=== PATIENT | female | born 1940 | race Caucasian/White ===

== ENCOUNTER 2018-02-07 08:38 | Inpatient (IN) | payer MEDICARE, BC ==
[2018-02-07 09:17] LABS: Hemoglobin 13.9 g/dL (12.0-16.0); Mean Corpuscular HGB CONC 33.9 g/dL (32.0-36.0); Mean Corpuscular Hemoglobin 31.3 pg (27.0-31.0); Mean Corpuscular Volume 92.3 fl (81.0-99.0); Mean Platelet Volume 8.6 fL (7.4-10.4); Platelet Count 187 thou/uL (130-400); RBC Distribution Width 11.7 % (11.5-14.5); Red Blood Cell (RBC) Count 4.44 mill/uL (4.20-5.40); White Blood Cell (WBC) Count 6.3 thou/uL (4.8-10.8)
--- NOTE | 2018-02-07 09:22 | CT ---
HEAD CT WITHOUT CONTRAST: History: Syncope. Comparison: None. Technique: Noncontrast head CT is performed from skull base to skull vertex. FINDINGS: Large left supraorbital/scalp hematoma. No parenchymal hemorrhage. No extraaxial hematoma. No midline shift. Basilar cisterns are patent. Bra in volume is age appropriate. Cortical cloud white matter differentiation is preserved. Ventricles and sulci are patent and symmetric. Calvarium is intact. Adequate aeration of the sinuses and mastoid air cells. Cavernous carotid athero sclerosis is noted. IMPRESSION: No intracranial post-traumatic sequella. No acute intracranial process. POS: [facility]
[2018-02-07 09:36] LABS: CKMB 0.8 ng/mL (0-6.6); Troponin I Less than 0.010 ng/mL (< 0.028)
[2018-02-07 09:41] LABS: Band 2 % (5-11); Eosinophils 6 % (0-10); Lymphocytes 25 % (21-51); MDiff Complete? YES; Monocytes 2 % (0-10); Neutrophil 65 % (42-75); RBC Morphology Normal
[2018-02-07 09:42] LABS: ALT (SGPT) 17 U/L (8-55); AST (SGOT) 18 U/L (5-34); Albumin 3.7 g/dL (3.4-4.8); Alkaline Phosphatase 90 U/L (40-150); Anion Gap 16 mmol/L (10-20); BUN (Urea Nitrogen) 18 mg/dL (9.8-20.1); Bilirubin, Total 0.8 mg/dL (0.2-1.2); Calc. Creatinine Clearance 0 mL/min (70-130); Calcium 9.2 mg/dL (7.8-10.44); Carbon Dioxide 19 mmol/L (23-31); Chloride 108 mmol/L (98-107); Estimated GFR-MDRD 84; Globulin 3.3 g/dL (2.4-3.5); Glucose 141 mg/dL (83-110); Potassium 3.7 mmol/L (3.5-5.1); Sodium 139 mmol/L (136-145)
--- NOTE | 2018-02-07 09:45 | RAD ---
ONE VIEW CHEST: History: Syncope. Comparison: None. FINDINGS: Normal cardiac silhouette. The lungs are pleural spaces are clear. No pneumothorax or osseous abnorma lities. Calcified granuloma in the right lower lobe is suspected. IMPRESSION: No acute cardiopulmonary process. POS: [facility]
[2018-02-07 10:45] LABS: Bilirubin Negative (Negative); Blood, Urine Negative (Negative); Clarity CLEAR (Clear); Glucose, Urine (Dipstick) Negative (Negative); Leukocyte Small (Negative); Nitrite Negative (Negative); Protein, Urine (Dipstick) Negative (Neg-Trace); Specific Gravity, Urine 1.015 (1.002-1.036); Urobilinogen 0.2 mg/dL (0.2-1.0)
[2018-02-07 10:48] LABS: Bacteria/HPF None Seen HPF (None Seen); Hyaline Casts/LPF 0-3 HYALINE CAST LPF (0-3 Hyaline); Pathc Cast-AUWi Flag 0.29 (0-2.49); RBC/HPF 0-3 HPF (0-3); Squamous Epithelial 0-3 HPF (0-3)
--- NOTE | 2018-02-07 11:37 | PDOC.FPRHP ---
- History of Present Illness Chief Complaint: syncope History of Present Illness: 78 year old female with PMH hypothyroidism, SOLOMON, and OA that presents after syncopal episode at home. This is reportedly the second episode of syncope within the last 2 months. Patient states that she has no prodromal symptoms. She does not feel dizzy or light-headed prior to the events. Patient states she was up walking around during both episodes. She does have a history of OA in bilateral knees but does not feel as though her knees gave out causing her to fall. She states she "blacked out" and then hit her head. Both times she has hit her head and sustained minor lacerations. Patient denies chest pain, sudden vision changes, shortness of breath, edema, headaches, or palpitations. She has felt generally weak but not ill. She has been otherwise healthy and states she takes her thyroid medication daily and wears her CPAP machine at night. She endorses eating and drinking adequately. She has not spent an abnormal amount of time out in the hot sun. She did not seek help or further evaluation from PCP after last syncopal episode, so she has not been worked up for syncope up to this point. Patient states she was only out for a few seconds and was alert once she woke up. She was not confused. There was nobody present to witness the syncopal episode, but she did call family to notify them that she had fallen. ED Course: CT of brain was negative. - Allergies/Adverse Reactions Allergies Allergy/AdvReac Type Severity Reaction Status Date / Time spinach Allergy Hives Verified 02/07/18 13:03 - Home Medications Medication Instructions Recorded Confirmed Type Hydrochlorothiazide 1 tab PO DAILY 02/07/18 02/07/18 History [Hydrochlorothiazide] Levothyroxine [Synthroid] 150 mcg PO QAM 02/07/18 02/07/18 History Meloxicam [Meloxicam] 15 mg PO DAILY 02/07/18 02/07/18 History Montelukast Sodium 10 mg PO DAILY 02/07/18 02/07/18 History - History PMHx: Hypothyroidism, SOLOMON, OA, Chronic venous stasis PSHx: Cataract surgery of left and right eye, Left ankle surgery, Left wrist surgery, Hysterectomy FHx: Mother has CAD. No history of DM. Social: Patient denies tobacco, alcohol or drug use - Review of Systems General: denies: fever/chills, weight/appetite/sleep changes, fatigue Eyes: denies: eye pain, vision changes ENT: denies: nasal congestion, rhinorrhea Respiratory: denies: cough, congestion, shortness of breath Cardiovascular: denies: chest pain, palpitation, edema Gastrointestinal: denies: nausea, vomiting, diarrhea, constipation, abdominal pain Genitourinary: reports: polyuria (at night). denies: incontinence, dysuria Skin: denies: rashes, lesions, jaundice Musculoskeletal: reports: pain, tenderness (bilateral knees) Neurological: reports: syncope, weakness. denies: numbness, seizure Psychological: denies: anxiety, depression - Vital signs BP: 164/84 HR: 70 RR: 20 Tmax: 98.1 F Pox: 95% on RA Wt: 97.70 kg - Physical Exam Constitutional: NAD, awake, alert and oriented, well developed HEENT: PERRLA, EOMI, conjunctiva clear, no scleral icterus, grossly normal hearing, normal nasal mucosa, MMM, oropharynx clear -HEENT: Left eyebrow laceration, poorly approximated with dermabond. 2 mm pupils. Neck: supple, FROM Heart: RRR, normal S1/S2, no murmurs/rubs/gallops, pulses present, no edema Lungs: CTAB, no respiratory distress, good air movement, no wheezing, no retractions Abdomen: soft, non-tender, bowel sounds present, no masses/distention, no hernias -Musculoskeletal: Left wrist echymosis on anterior and radial wrist. Non-tender to palpation. Left orbital ecchymosis and edema. Neurological: no focal deficit, CN II-XII intact, normal sensation Skin: no rash/lesions, good turgor, capillary refill <2 seconds, no jaundice Heme/Lymphatic: no unusual bruising or bleeding, no purpura, no petechia, no LAD Psychiatric: normal mood and affect, good judgment and insight, intact recent and remote memory FMR H&P: Results - Labs Result Diagrams: 02/07/18 09:08 02/07/18 09:08 Lab results: WBC 6.3 thou/uL (4.8-10.8) 02/07/18 09:08 Hgb 13.9 g/dL (12.0-16.0) 02/07/18 09:08 Hct 40.9 % (36.0-47.0) 02/07/18 09:08 MCV 92.3 fl (81.0-99.0) 02/07/18 09:08 Plt Count 187 thou/uL (130-400) 02/07/18 09:08 Band Neuts % (Manual) 2 % (5-11) L 02/07/18 09:08 Sodium 139 mmol/L (136-145) 02/07/18 09:08 Potassium 3.7 mmol/L (3.5-5.1) 02/07/18 09:08 Chloride 108 mmol/L (98-107) H 02/07/18 09:08 Carbon Dioxide 19 mmol/L (23-31) L 02/07/18 09:08 BUN 18 mg/dL (9.8-20.1) 02/07/18 09:08 Creatinine 0.68 mg/dL (0.6-1.1) 02/07/18 09:08 Glucose 141 mg/dL (83-110) H 02/07/18 09:08 Calcium 9.2 mg/dL (7.8-10.44) 02/07/18 09:08 Total Bilirubin 0.8 mg/dL (0.2-1.2) 02/07/18 09:08 AST 18 U/L (5-34) 02/07/18 09:08 ALT 17 U/L (8-55) 02/07/18 09:08 Alkaline Phosphatase 90 U/L (40-150) 02/07/18 09:08 CK-MB (CK-2) 0.8 ng/mL (0-6.6) 02/07/18 09:08 Serum Total Protein 7.0 g/dL (6.0-8.3) 02/07/18 09:08 Albumin 3.7 g/dL (3.4-4.8) 02/07/18 09:08 Urine Ketones Negative mg/dL (Negative) 02/07/18 10:33 Urine Blood Negative (Negative) 02/07/18 10:33 Urine Nitrite Negative (Negative) 02/07/18 10:33 Ur Leukocyte Esterase Small (Negative) H 02/07/18 10:33 Urine RBC 0-3 HPF (0-3) 02/07/18 10:33 Urine WBC 4-6 HPF (0-3) H 02/07/18 10:33 Ur Squamous Epith Cells 0-3 HPF (0-3) 02/07/18 10:33 Urine Bacteria None Seen HPF (None Seen) 02/07/18 10:33 - EKG Interpretation EKG: EKG: NSR - Radiology Interpretation CT scan - head Status: image reviewed by me, report reviewed by me Additional comment: No acute intracranial abnormality FMR H&P: A/P - Problem List (1) Facial laceration Current Visit: Yes Status: Acute Code(s): S01.81XA - LACERATION W/O FOREIGN BODY OF OTH PART OF HEAD, INIT ENCNTR (2) Syncope and collapse Current Visit: Yes Status: Acute Code(s): R55 - SYNCOPE AND COLLAPSE (3) Right wrist injury Current Visit: Yes Status: Acute Code(s): S69.91XA - UNSP INJURY OF RIGHT WRIST, HAND AND FINGER(S), INIT ENCNTR (4) Hypothyroidism Current Visit: Yes Status: Chronic Code(s): E03.9 - HYPOTHYROIDISM, UNSPECIFIED (5) SOLOMON (obstructive sleep apnea) Current Visit: Yes Status: Chronic Code(s): G47.33 - OBSTRUCTIVE SLEEP APNEA (ADULT) (PEDIATRIC) (6) Osteoarthritis Current Visit: Yes Status: Chronic Code(s): M19.90 - UNSPECIFIED OSTEOARTHRITIS, UNSPECIFIED SITE - Plan Syncope and collapse - 2 episodes in last month, unprovoked - Differentials include orthostatic hypotension, Sick sinus syndrome, TIA, Vasovagal syncope - Symptoms less c/w stroke: Strength 5/5 bilaterally, CN II-XII intact, no focal deficits - Will obtain orthostatic vital signs - Monitor on telemetry for rhythm abnormalities - Mild fluid resuscitation with LR as patient has mild acidosis and hyperchloremia - Consider echo as outpatient - TSH < 0.0025 which may have contributed; will decrease dose of levothyroxine and measure free T3, T4 - Consider consulting cardiology, particularly if rhythm irregularities on telemetry - Patient may need holter monitor as outpatient due to recurrent syncope - Obtain records from recent stress test which was negative per patient report - No carotid bruits on physical exam - Check electrolytes to include Mg, P - NPO at midnight in anticipation of possible stress test in AM pending prior records - EKG NSR - Brain CT negative Left eyebrow laceration - s/p approximation with dermabond; hemostatic - Consider CT facial bones if concern for orbital fracture arises Right wrist injury - s/p fall - Xray right wrist - Pain control Hypothyroidism - TSH 0.0025, will follow up with free T3, T4 - Consider decreasing dose of levothyroxine SOLOMON - Continue CPAP at night OA - Pain control with home meloxicam dose CODE STATUS: FULL DVT PPX: SCD s GI PPX: pantoprazole Dispo: Obs in telemetry. Anticipate LOS <48 hours. FMR H&P: Upper Level - Pertinent history 78yo HF with pmhx hypothyroidism, OA and SOLOMON presents to [facility] ED after syncopal episode with unwitnessed fall from standing position while home walking from one room to another. Denies any noticeable LOC, dizziness/lightheadedness, palpitations, mechanical weakness, or other prodromal symptoms. This is the 2nd event within the last 2 months that occurred with exertional syncope and no prodromal symptoms. After the event, pt endorses only pain at the site of her laceration to the right eyebrow/forehead which has been reapproximated with dermabond in the ED. See actuarial intern note for further details regarding pts past medical, surgical hxs. Pt endorses recent stress by outpt emergency veterinary technician named "Dr. Gomez", unsure of results. - Pertinent findings PE-- Gen- A&Ox3, NAD, well appearing HEENT- pupils 2mm, but equally reactive, EOMI Neck- no thyromegaly, no TIM. no carotid bruits. CV- rrr, no mrg. no LE edema Lungs- CTAB Abd- soft, nontender, nondistended Ext- right wrist swelling + bruising to radial side of wrist Psyc- normal affect, short term memory intact Sig labs- Laboratory Tests 02/07/18 02/07/18 02/07/18 09:08 09:08 09:08 WBC 6.3 Hgb 13.9 Hct 40.9 Plt Count 187 Sodium 139 Potassium 3.7 Chloride 108 H Carbon Dioxide 19 L Creatinine 0.68 Estimated GFR (MDRD) 84 Glucose 141 H CK-MB (CK-2) 0.8 Troponin I Less than 0.010 TSH 3rd Generation 02/07/18 09:08 WBC Hgb Hct Plt Count Sodium Potassium Chloride Carbon Dioxide Creatinine Estimated GFR (MDRD) Glucose CK-MB (CK-2) Troponin I TSH 3rd Generation Less than 0.0025 L CXR- NAD CT head- NAD - Plan Date/Time: 02/07/18 1134 78yo HF with pmhx hypothyroidism, SOLOMON, OA presents after "passing out" at home-- 1) Syncope- ddx includes vasovagal, orthostatic, cardiac (sick sinus vs. arrhythmia vs. ischemic), medication effect, neurogenic. CT head negative for acute bleed, EKG upon admission is NSR in low 60s, and neg lab work up thus far. Will observe on telemetry with continuous cardiac monitoring, check orthostatic vitals, consider stress testing (pt states this has possibly been done recently). 2) Supratherapeutic hypothyroidism- TSH low, check FT3 & FT4 for further mgmt. hold levothyroxine. 3) Right wrist contusion- check xray to r/o Colles' fx from FOOSH injury 4) facial lac- s/p reapproximation with Dermabond 5) SOLOMON- continue home CPAP settings I, [Mel Lopez DO ([email or web address])], have evaluated this patient and agree with findings/plan as outlined by actuarial intern resident. Pertinent changes/additions are listed here.
[2018-02-07] MEDS ORDERED: Acetaminophen 325 MG TAB PO PRN (12:26)
[2018-02-07] MEDS ORDERED: Ondansetron PF 4 MG/2 ML Vial IVP PRN (12:26)
[2018-02-07] MEDS ORDERED: Ondansetron ODT 4 MG TAB PO PRN (12:26)
[2018-02-07 12:44] VITALS: BMI 35.0
[2018-02-07 12:52] LABS: Troponin I Less than 0.010 ng/mL (< 0.028)
[2018-02-07 12:56] LABS: Phosphorus 3.1 mg/dL (2.3-4.7)
[2018-02-07 13:20] LABS: Free T4 (Free Thyroxine) 1.76 ng/dL (0.70-1.48)
[2018-02-07] MEDS: Lactated Ringer's 1,000 ML IV SCH ×2 (14:14→22:39)
--- NOTE | 2018-02-07 14:21 | RAD ---
THREE VIEWS RIGHT WRIST: HISTORY: Fall. Injury. COMPARISON: None. FINDINGS: There is diffuse bone demineralization. There is possible lucency and irregularity involving the dis smiley radius. The possibility of a distal radius fracture cannot be completely excluded. There is no evidence of a carpal bone fracture. There are degenerative changes in the 1st carpometacarpal joint space. IMPRESSION: 1. Subtle lucencies in the distal radius. Correlate clinically for point tenderness and fracture. 2. Degenerative changes of the 1st carpometacarpal joint space. POS: [facility]
[2018-02-07] MEDS ORDERED: traMADol HCl 50 MG TAB PO PRN (15:44)
[2018-02-07 16:30] LABS: Troponin I Less than 0.010 ng/mL (< 0.028)
--- NOTE | 2018-02-07 17:08 | HP ---
I have reviewed the history and physical of Dr. Katharina Bailey. I have discussed the case with be r and agree with her assessment and plan. Briefly, Ms. Medeiros is a pleasant 78-year-old female with no prior history of coronary arter y disease who presents with a syncopal episode that occurred at home. She states that this morning s he awoke and was walking in her home when she suddenly lost consciousness. She states for a matter o f "seconds." She did not have antecedent chest pain, palpitations or racing feeling in her heart. S he awoke with no sequelae. She does not remember any incontinence of stool or urine. [facility] where she was subsequently admitted for further ev aluation and workup. Her admission EKG from the ER appears normal. PHYSICAL EXAMINATION: GENERAL: She is currently awake, alert, pleasant, in no distress. She does have abrasion above her left eyebrow with periorbital edema from a fall. VITAL SIGNS: Blood pressure is 160/80, pulse rate is 70 and regular. She is afebrile. Again, she i s awake, alert, in no distress. HEENT: Aforementioned. NECK: Supple. No bruits. CARDIAC: Heart rhythm regular, no gallop or murmur noted. LUNGS: Clear, without rales, rhonchi, or wheezes. ABDOMEN: Flat, soft. No guarding, rebound or rigidity. EXTREMITIES: No edema. NEUROLOGIC: No focal deficits. LABORATORY DATA: CBC: White count 6300, hemoglobin 13.9, hematocrit 40.9 with an MCV of 92. Chemis tries: Her sodium is 139, potassium 3.9, chloride 108, bicarbonate 19, BUN 18, creatinine 0.68, gluc ose is 141, and magnesium is 2. Her TSH is suppressed at less than 0.0025 and her free T4 is elevate d at 1.76. Her EKG shows no ischemic changes or evidence of arrhythmia. ASSESSMENT: Syncope/presyncope. PLAN: The patient will be admitted. We will likely need to reduce her thyroid medication as she is slightly hyperthryroid. This could have precipitated an arrhythmia such as atrial fibrillation or SV T. She will likely need an outpatient study to include either Holter monitoring or event recorder. Echocardiography will likely be performed. In the event, currently she is clinically stable.
[2018-02-08] MEDS: Levothyroxine Sodium 100 MCG TAB PO SCH (03:51)
[2018-02-08 05:03] LABS: #Eosinphils 0.2 thou/uL (0.0-0.7); #Lymphocytes 1.8 thou/uL (1.20-3.40); #Monocytes 0.5 thou/uL (0.11-0.59); #Neutrophils 3.3 thou/uL (1.40-6.50); %Basophils 0.8 % (0.0-1.0); %Eosinophils 2.8 % (0.0-10.0); %Lymphocytes 30.6 % (21.0-51.0); %Monocytes 9.2 % (0.0-10.0); %Neutrophils 56.7 % (42.0-75.0); Hemoglobin 12.2 g/dL (12.0-16.0); Mean Corpuscular HGB CONC 33.6 g/dL (32.0-36.0); Mean Corpuscular Hemoglobin 30.8 pg (27.0-31.0); Mean Corpuscular Volume 91.5 fl (81.0-99.0); Mean Platelet Volume 8.1 fL (7.4-10.4); Platelet Count 240 thou/uL (130-400); RBC Distribution Width 11.7 % (11.5-14.5); Red Blood Cell (RBC) Count 3.97 mill/uL (4.20-5.40); White Blood Cell (WBC) Count 5.9 thou/uL (4.8-10.8)
[2018-02-08 05:21] LABS: Anion Gap 10 mmol/L (10-20); BUN (Urea Nitrogen) 13 mg/dL (9.8-20.1); Calc. Creatinine Clearance 125 mL/min (70-130); Carbon Dioxide 28 mmol/L (23-31); Chloride 105 mmol/L (98-107); Estimated GFR-MDRD Greater than 90; Glucose 99 mg/dL (83-110); Potassium 3.6 mmol/L (3.5-5.1); Sodium 139 mmol/L (136-145)
[2018-02-08] MEDS: Lactated Ringer's 1,000 ML IV SCH ×3 (06:48→22:34)
--- NOTE | 2018-02-08 07:00 | PDOC.FM ---
Addendum entered and electronically signed by Katharina Bailey DO 02/08/18 10 :32: Ordered carotid doppler and echo to further evaluate etiology of syncope. Concerned there may be rhythm abnormality or component of sick sinus syndrome contributing to syncopal episodes. Would expect patient's heart rate to be more elevated with TSH as low as what is being measured. No abnormalities noted on telemetry overnight. Patient would likely benefit from holter monitor. Consulted cardiology for further recommendations. Original Note: - Subjective Subjective: Patient doing well this AM. No significant overnight events. Patient saw ssis etl developer over 10 years ago but has no documentation as to why she was following with ssis etl developer. She denies chest pain, shortness of breath, palpitations, N/V this AM. - Objective MAR Reviewed: Yes Vital Signs & Weight: Vital Signs (12 hours) Temp Pulse Resp BP Pulse Ox 02/08/18 03:46 97.8 F 55 L 12 168/77 H 97 02/07/18 23:15 98.0 F 71 18 173/79 H 94 L 02/07/18 20:20 98.2 F 61 18 02/07/18 19:42 98.2 F 61 18 139/66 92 L Weight Weight 95.572 kg I&O: 02/06/18 02/07/18 02/08/18 06:59 06:59 06:59 Intake Total 2448 Balance 2448 Result Diagrams: 02/08/18 04:14 02/08/18 04:14 EKG Reviewed by me: Yes Radiology Reviewed by me: Yes <Katharnia Bailey - Last Filed: 02/08/18 08:33> - Objective Vital Signs & Weight: Vital Signs (12 hours) Temp Pulse Resp BP BP Pulse Ox 02/08/18 15:29 98.4 F 64 18 175/77 H 93 L 02/08/18 14:06 60 151/70 H 02/08/18 11:20 98.1 F 60 16 151/70 H 98 02/08/18 07:45 97.5 F L 55 L 16 02/08/18 07:34 97.5 F L 55 L 16 182/83 H 97 Weight Weight 95.572 kg I&O: 02/07/18 02/08/18 02/09/18 06:59 06:59 06:59 Intake Total 2448 Balance 2448 Result Diagrams: 02/08/18 04:14 02/08/18 04:14 <Larry Abraham - Last Filed: 02/08/18 16:56> Phys Exam - Physical Examination Constitutional: NAD HEENT: PERRLA, moist MMs, sclera anicteric Neck: supple Respiratory: no wheezing, clear to auscultation bilateral Cardiovascular: RRR, no significant murmur, no rub Gastrointestinal: soft, no distention, positive bowel sounds Musculoskeletal: no edema, pulses present Right wrist in splint Neurological: non-focal, moves all 4 limbs Psychiatric: normal affect, A&O x 3 Deviation from normal: Left orbital ecchymosis and edema. Left eyebrow laceration <Katharina Bailey - Last Filed: 02/08/18 08:33> Dx/Plan (1) Syncope and collapse Code(s): R55 - SYNCOPE AND COLLAPSE Status: Acute (2) Facial laceration Code(s): S01.81XA - LACERATION W/O FOREIGN BODY OF OTH PART OF HEAD, INIT ENCNTR Status: Acute (3) Right wrist injury Code(s): S69.91XA - UNSP INJURY OF RIGHT WRIST, HAND AND FINGER(S), INIT ENCNTR Status: Acute (4) Hypothyroidism Code(s): E03.9 - HYPOTHYROIDISM, UNSPECIFIED Status: Chronic (5) SOLOMON (obstructive sleep apnea) Code(s): G47.33 - OBSTRUCTIVE SLEEP APNEA (ADULT) (PEDIATRIC) Status: Chronic (6) Osteoarthritis Code(s): M19.90 - UNSPECIFIED OSTEOARTHRITIS, UNSPECIFIED SITE Status: Chronic - Plan Plan: Syncope and collapse - 2 episodes in last month, unprovoked and on exertion - Differentials include orthostatic hypotension, Sick sinus syndrome, TIA, Vasovagal syncope, CAD - Symptoms less c/w stroke: Strength 5/5 bilaterally, CN II-XII intact, no focal deficits - Orthostatic vital signs borderline, but not diagnostic - Monitor on telemetry for rhythm abnormalities; none noted overnight - Mild fluid resuscitation with LR as patient has mild acidosis and hyperchloremia; improved this AM - Consider echo as outpatient - TSH < 0.0025 which may have contributed; will decrease dose of levothyroxine; t3 nml, t4 elevated - Patient may need holter monitor as outpatient due to recurrent syncope - No carotid bruits or murmur on physical exam - Electrolytes wnl - Plan for cardiac stress test to rule out CAD as cause of unprovoked syncope - EKG NSR - Brain CT negative Left eyebrow laceration - s/p approximation with dermabond; hemostatic Right wrist injury - s/p fall - Xray right wrist shows some changes that may indicate fracture - Pt placed in wrist splint - Pain control Hypothyroidism - TSH 0.0025; t3 nml, t4 elevated - Decreased dose of levothyroxine SOLOMON - Continue CPAP at night OA - Pain control with home meloxicam dose CODE STATUS: FULL DVT PPX: SCD s GI PPX: pantoprazole Dispo: Obs in telemetry. Anticipate LOS <48 hours. Plan for stress test this AM. <Katharina Bailey - Last Filed: 02/08/18 08:33> Attending Addendum - Attending Addendum Date/Time: 02/08/18 [id number] I personally evaluated the patient and discussed the management with Dr. Bailey. I agree with the History, Examination, Assessment and Plan documented above with any addition or exceptions noted below. I strongly suspect cardiac arrhythmia as cause of syncope. Workup in progress. Appreciate Cards recs. <Larry Abraham - Last Filed: 02/08/18 16:56>
[2018-02-08] MEDS: Hydrochlorothiazide 25 MG TAB PO SCH (07:46)
[2018-02-08] MEDS: Meloxicam 15 MG TAB PO SCH (07:46)
[2018-02-08] MEDS: Montelukast Sodium 10 mg Tablet PO SCH (07:46)
[2018-02-08] MEDS ORDERED: ADENOSINE 60 MG/20 ML VIAL ONE (10:50)
[2018-02-08 11:24] LABS: Cardiac Risk 3.8 (Less than 4.5); Hemoglobin A1c 5.2 % (4.0-6.0)
--- NOTE | 2018-02-08 13:07 | ULT ---
CAROTID ULTRASOUND WITH WALKER SCALE AND DOPPLER DUPLEX COLOR FLOW IMAGING SPECTRAL ANALYSIS PERFORMED: CLINICAL INDICATION: Exertional syncope. FINDINGS: There is mild scattered atherosclerotic calcification of the carotid arteries. PEAK SYSTOLIC VELOCITY (CM/S): Right CCA 68 Left CCA 75 Right ICA 84 Left ICA 67 There is antegrade flow within the visualized bilateral vertebral arteries. IMPRESSION: 1. No hemodynamically significant stenosis of the right internal carotid artery. 2. No hemodynamically significant stenosis of the left internal carotid artery. POS: [facility]
[2018-02-08] MEDS ORDERED: Lisinopril 2.5 MG TAB PO SCH (13:30)
--- NOTE | 2018-02-08 16:16 | CON ---
DATE OF CONSULTATION: 02/08/2018 REASON FOR CONSULTATION: Recent syncope. Please refer to Kiley Walden's full consultation for details. HISTORY OF PRESENT ILLNESS: Briefly, Ms. Medeiros is a very pleasant 78-year-old woman who recently mario d a syncopal episode. There were no predisposing factors. No chest pain, pressure or shortness of b reath. She did have trauma noted to the left side of her face. She currently has no complaints. PHYSICAL EXAMINATION: GENERAL: Patient is a pleasant female who is in no acute distress. The patient appears her stated a ge. VITAL SIGNS: Blood pressure 175/77, pulse 64, temperature 98.4. NEUROLOGIC: The patient is alert and oriented times 3 with no focal neurologic deficits. HEENT: Sclerae without icterus. Mouth has moist mucous membranes with normal pallor. Please note t he ecchymosis with stitches present to the left orbital region. NECK: No JVD. Carotid upstroke brisk. No bruits bilaterally. LUNGS: Clear to auscultation with unlabored respirations. BACK: No scoliosis or kyphosis. CARDIAC: Regular rate and rhythm with normal S1 and S2. No S3 or S4 noted. No significant rubs, mur murs, thrills, or gallops noted throughout the precordium. PMI is not displaced. There is no parast ernal heave. ABDOMEN: Soft, nontender, nondistended. No peritoneal signs present. No hepatosplenomegaly. No abn ormal striae. EXTREMITIES: 2+ femoral and 2+ dorsalis pedis pulses. No cyanosis, clubbing, or edema. SKIN: No gross abnormalities. PERTINENT LABORATORY DATA: Hemoglobin 12.2, creatinine 0.5, free T4 1.76. IMAGING DATA: 1. EKG, normal sinus rhythm with nonspecific ST-T wave changes. No significant blocks present. 2. Echo with Doppler pending. 3. Stress rest myocardial imaging, pending. IMPRESSION: Syncope. RECOMMENDATIONS: Ms. Medeiros symptoms certainly sound as cardiac being the initial etiology. At this point, her rhythm on tele has been stable. She has no significant AV blocks present. First and for emost, I have asked her to refrain from all driving. She had syncopal episode without predisposing f actors. If her echo and stress appear within normal limits, would then recommend a 3-week outpatient event recorder. If the event recorder is negative and she continues to have syncope, may consider a n implantable loop recorder. If she did have significant blocks noted on EKG, would consider EP cons ultation and EP study, but given the above, would feel prudent to proceed with a 3-week event recorde r. Otherwise, I have no recommendations.
--- NOTE | 2018-02-08 16:52 | CON-2 ---
DATE OF CONSULTATION: 02/08/2018 CARDIOLOGY CONSULTATION NOTE RESIDENT: Kiley Walden M.D. ATTENDING PHYSICAL SECURITY MANAGER: Perry Sam M.D. CHIEF COMPLAINT: Syncope. HISTORY OF PRESENT ILLNESS: Ms. Medeiros is a very pleasant 78-year-old female with past medical history of hypothyroidism and obstructive sleep apnea, who presented yesterday after a syncopal episode at home. She reports that something similar happened 11/20/2017, where she fell suddenly in her home while she was up walking around, but at that time, just had a mild bump on her head she reports and did not come for any further evaluation. She notes that yesterday, at around 8:00 a.m., she was up around in her house and had turned to look at the television when she blacked out and fell to the ground. She reports that she recalls falling and recalls stretching on her hands as she fell , but then everything went black. She does not believe she completely lost consciousness and was out for a second or two. She denies any chest pain with this episode, at rest, or with any exertion. She denies any other symptoms such as fever, chills, nausea, vomiting, or diarrhea. She denies any cardiac history in the past as well as any history of hypertension, hyperlipidemia, or diabetes. Since that time, she has felt well throughout this hospitalization and has no other concerns at this time. REVIEW OF SYSTEMS: General: Denies fever or chills. Head: Endorses pain around her left eye and bruising. Eyes: Endorses blacking out with syncopal episode. Otherwise, denies any vision changes or eye pain. ENT: Denies hearing loss, rhinorrhea, or sore throat. Cardiovascular: Denies chest pain or palpitations. Respiratory: Denies cough or wheezing. Gastrointestinal: Denies nausea, vomiting, diarrhea. Genitourinary: Denies dysuria or hematuria. Extremities: Denies any cyanosis, but does endorse sometimes her feet feel tight and tingly, but has not noted any significant swelling. Skin: Endorses bruising, denies rashes PAST MEDICAL HISTORY: Hypothyroidism, osteoarthritis, obstructive sleep apnea. PAST SURGICAL HISTORY: Bilateral cataract surgery, left ankle surgery, left wrist surgery, hysterectomy. FAMILY HISTORY: Coronary artery disease in mother, who of an PR. SOCIAL HISTORY: Denies tobacco, alcohol, or drug use. Retired. ALLERGIES: SPINACH. HOME MEDICATIONS: 1. Hydrochlorothiazide 12.5 mg p.o. daily. 2. Montelukast 10 mg p.o. daily. 3. Meloxicam 50 mg p.o. daily. 4. Synthroid 150 mcg p.o. q.a.m. 5. Aleve p.r.n., arthritis pain. 6. Centrum Silver multivitamin. PHYSICAL EXAMINATION: VITAL SIGNS: Blood pressure 151/90, pulse 60, temperature 98.1, O2 98% on room air, respiratory rate 16. GENERAL: Alert and oriented x3. HEENT: Notable ecchymosis around the entire left orbit and a laceration of her left eyelid, which has been repaired. Trachea midline and no carotid bruits. CARDIOVASCULAR: Regular rate and rhythm, no murmurs noted. Peripheral pulses 1 + throughout. LUNGS: Clear to auscultation bilaterally. ABDOMEN: Soft, nontender, nondistended with bowel sounds present in all 4 quadrants. EXTREMITIES: No clubbing, cyanosis, or edema. IMAGIN. EKG: Normal sinus rhythm with some nonspecific T-wave changes in leads 1 through 3. 2. Chest x-ray: No acute cardiopulmonary process. 3. Brain CT: no intracranial posttraumatic sequelae or other acute process. 4. Wrist x-ray: Subtle lucencies in the distal radius and degenerative changes of the first carpometacarpal joint space. 5. Carotid Doppler: No hemodynamically significant stenosis of the right or left internal carotid. 6. Echo: Formal read pending. 7. Nuclear medicine stress test: Pending. LABORATORY DATA: WBC 5.9, hemoglobin 12.2, hematocrit 36.3, platelets 240. Sodium 139, potassium 3.6, chloride 105, CO2 of 28, BUN 13, creatinine 0.56, glucose 99. A1c 5.2, calcium 9.0, magnesium 2.0, phosphorus 3.1, troponin less than 0.01 x3. Triglycerides 70, total cholesterol 144, LDL 92, HDL 38. TSH was less than 0.0025, free T4 of 1.78, free T3 2.28. Urine showed a small leukocyte esterase and 4-6 white blood cells. ASSESSMENT AND PLAN: A 78-year-old female with past medical history of hypothyroidism and obstructive sleep apnea, presents with syncopal episode. 1. Syncope: Patient has not demonstrated any focal EKG or telemetry findings. However, this very well may be related to a cardiac event. We will review results of stress test and echocardiogram. If stress test is negative, the patient may be discharged home with plan to follow up in Dr. Sam's office within 1-2 days to arrange for outpatient event monitor. The patient has been instructed not to drive for at least 6 months or until the etiology of this episode has been determined. She was also cautioned against any other risk- related activities such as swimming or operating any other type of machinery. 2. Hypertension: Medications have been started by primary team, agree with ongoing titration of those medications. Thank you very much for this consultation. Please see Dr. Sam's addendum for any further recommendations. MTDD
[2018-02-08] MEDS ORDERED: Communication Order-Pharmacy FS SCH (18:00)
[2018-02-09] MEDS: Montelukast Sodium 10 mg Tablet PO SCH (04:25)
[2018-02-09] MEDS: Meloxicam 15 MG TAB PO SCH (04:25)
[2018-02-09] MEDS: Lisinopril 2.5 MG TAB PO SCH (04:25)
[2018-02-09] MEDS: Levothyroxine Sodium 100 MCG TAB PO SCH (04:25)
[2018-02-09] MEDS: Hydrochlorothiazide 25 MG TAB PO SCH (04:26)
[2018-02-09] MEDS ORDERED: Diazepam 5 MG TAB PO SCH (06:00)
[2018-02-09] MEDS ORDERED: Sodium Chloride 0.9% 1,000 ML IV SCH ×2 (06:00→08:30)
--- NOTE | 2018-02-09 06:54 | PDOC.FM ---
- Subjective Subjective: Patient doing well this AM. She is status post cardiac cath. Cardiac cath showed 80% blockage in LAD. Patient will go back for CABG tomorrow morning at 7: 00 AM. Patient otherwise feeling fine. She denies any chest pain, palpitations, or shortness of breath. She has spoken at length with CV Surgeon who will be performing procedure tomorrow. All of her questions were answered. - Objective MAR Reviewed: Yes Vital Signs & Weight: Vital Signs (12 hours) Temp Pulse Resp BP BP BP Pulse Ox 02/09/18 05:21 60 141/66 H 02/09/18 04:25 63 180/70 H 02/09/18 04:24 98.3 F 63 20 180/70 H 97 02/08/18 19:40 98.7 F 59 L 15 137/65 95 02/08/18 19:20 98.7 F 59 L 15 Weight Weight 93.894 kg I&O: 02/07/18 02/08/18 02/09/18 06:59 06:59 06:59 Intake Total 2448 3607 Balance 2448 3607 Result Diagrams: 02/08/18 04:14 02/08/18 04:14 EKG Reviewed by me: Yes Radiology Reviewed by me: Yes <Katharina Bailey - Last Filed: 02/09/18 11:41> - Objective Vital Signs & Weight: Vital Signs (12 hours) Temp Pulse Resp BP Pulse Ox 02/09/18 11:01 98.2 F 60 18 145/73 H 97 Result Diagrams: 02/08/18 04:14 02/08/18 04:14 <Dave Pradhan - Last Filed: 02/09/18 12:32> Phys Exam - Physical Examination Constitutional: NAD HEENT: moist MMs, sclera anicteric left orbital ecchymosis and edema, left forehead laceration Neck: supple, full ROM Respiratory: no wheezing, clear to auscultation bilateral Cardiovascular: RRR, no significant murmur Gastrointestinal: no distention, positive bowel sounds Musculoskeletal: no edema, pulses present Neurological: non-focal, moves all 4 limbs Psychiatric: normal affect, A&O x 3 Skin: no rash, cap refill <2 seconds <Katharina Bailey - Last Filed: 02/09/18 11:41> Dx/Plan (1) Syncope and collapse Code(s): R55 - SYNCOPE AND COLLAPSE Status: Acute (2) Facial laceration Code(s): S01.81XA - LACERATION W/O FOREIGN BODY OF OTH PART OF HEAD, INIT ENCNTR Status: Acute (3) Right wrist injury Code(s): S69.91XA - UNSP INJURY OF RIGHT WRIST, HAND AND FINGER(S), INIT ENCNTR Status: Acute (4) Hypothyroidism Code(s): E03.9 - HYPOTHYROIDISM, UNSPECIFIED Status: Chronic (5) SOLOMON (obstructive sleep apnea) Code(s): G47.33 - OBSTRUCTIVE SLEEP APNEA (ADULT) (PEDIATRIC) Status: Chronic (6) Osteoarthritis Code(s): M19.90 - UNSPECIFIED OSTEOARTHRITIS, UNSPECIFIED SITE Status: Chronic - Plan Plan: Syncope and collapse - 2 episodes in last month, unprovoked and on exertion - Differentials include orthostatic hypotension, Sick sinus syndrome, TIA, Vasovagal syncope, CAD - Symptoms less c/w stroke: Strength 5/5 bilaterally, CN II-XII intact, no focal deficits - Orthostatic vital signs borderline, but not diagnostic - Monitor on telemetry for rhythm abnormalities; 12 beats of vtach after stress test yesterday - Mild fluid resuscitation with LR - Echo read pending - TSH < 0.0025 which may have contributed; will decrease dose of levothyroxine; t3 nml, t4 elevated - No carotid bruits or murmur on physical exam; carotid dopplers negative - Electrolytes wnl - Plan for cardiac cath this AM - EKG NSR - Brain CT negative - Pt had cardiac cath done today which showed 80% occlusion of LAD. She has spoken with CV surgery and there are plans for CABG tomorrow morning at 7:00. Left eyebrow laceration - s/p approximation with dermabond; hemostatic Right wrist injury - s/p fall - Xray right wrist shows some changes that may indicate fracture - Pt placed in wrist splint - Pain control Hypothyroidism - TSH 0.0025; t3 nml, t4 elevated - Decreased dose of levothyroxine SOLOMON - Continue CPAP at night OA - Pain control with home meloxicam dose CODE STATUS: FULL DVT PPX: SCD s GI PPX: pantoprazole Dispo: Change to inpatient. Anticipate LOS >48 hours. s/p cardiac cath. Plan for CABG tmrw. <Katharina Bailey - Last Filed: 02/09/18 11:41> Attending Addendum - Attending Addendum Date/Time: 02/09/18 1231 I personally evaluated the patient and discussed the management with Dr. Bailey and team. I agree with and repeated the History, Examination, Assessment and Plan documented above with any addition or exceptions noted below. CT surgery consultation. Risk factor management. Reduce synthroid dose. <Dave Pradhan - Last Filed: 02/09/18 12:32>
[2018-02-09] MEDS ORDERED: Lidocaine 1% (PF) 30 ML VIAL ONE (07:25)
[2018-02-09] MEDS ORDERED: Fentanyl 100 MCG/2 ML VIAL ONE (07:45)
[2018-02-09] MEDS ORDERED: Midazolam HCl 2 mg/2 ml Vial ONE (07:45)
[2018-02-09] MEDS ORDERED: Acetaminophen/Codeine 30-300mg Tablet PO PRN ×2 (08:20)
[2018-02-09] MEDS ORDERED: traMADol HCl 50 MG TAB PO PRN (08:20)
[2018-02-09] MEDS ORDERED: Nitroglycerin 0.4 MG TAB (25 Tab Bottle) SL PRN (08:20)
[2018-02-09] MEDS ORDERED: hydrALAZINE 20 MG/ML VIAL ONE (08:28)
[2018-02-09] MEDS ORDERED: Sodium Chloride 0.9% 200 ML IV SCH (08:30)
[2018-02-09] MEDS: Lactated Ringer's 1,000 ML IV SCH (08:57)
--- NOTE | 2018-02-09 09:59 | NM ---
NUCLEAR MEDICINE CARDIAC STRESS WITH EF AND WALL MOTION: History: Chest pain. Syncope. Comparison: None. FINDINGS: Only the stress images were performed as requested by the Log Yard Manager. Patient was administered 27 mCi Technetium 99M Sestamibi. There is homogeneous distribution of the ra diotracer in the left ventricle. End diastolic velocity is 90 ml. End systolic velocity is 30 ml. Normal motion and thickening. 66% EF. IMPRESSION: 1. 66% EF. 2. Homogenous distribution of the tracer in the left ventricle. POS: [facility]
[2018-02-09] MEDS ORDERED: Communication Order-Pharmacy FS SCH (10:59)
[2018-02-09 12:26] LABS: INR-International Normal Ratio 1.1; Prothrombin Time 14.8 SEC (12.0-14.7)
[2018-02-09 12:27] LABS: PTT 34.4 SEC (22.9-36.1)
[2018-02-09] MEDS ORDERED: Iopamidol 370 76% 100 ML VIAL ONE (13:29)
[2018-02-09 13:35] LABS: Bilirubin Negative (Negative); Blood, Urine Negative (Negative); Clarity CLOUDY (Clear); Glucose, Urine (Dipstick) Negative (Negative); Leukocyte Small (Negative); Nitrite Negative (Negative); Protein, Urine (Dipstick) Negative (Neg-Trace); Specific Gravity, Urine 1.021 (1.002-1.036); pH, Urine 7.5 (5.0-9.0)
[2018-02-09 13:41] LABS: Bacteria/HPF 3+ HPF (None Seen); Hyaline Casts/LPF 0-3 HYALINE CAST LPF (0-3 Hyaline); Pathc Cast-AUWi Flag 0.29 (0-2.49); RBC/HPF 0-3 HPF (0-3); Squamous Epithelial None Seen HPF (0-3); WBC/HPF 21-50 HPF (0-3)
--- NOTE | 2018-02-09 17:01 | CON ---
DATE OF CONSULTATION: 02/09/2018 REQUESTING PHYSICIAN: Dr. Sam. PRIMARY CARE PHYSICIAN: Vipul White D.O. CHIEF COMPLAINT: Syncope. HISTORY OF PRESENT ILLNESS: The patient is a 78-year-old woman with minimal past medical history. S he was recently admitted after she had a fall and it was shortly after she had gotten up in the [facility], but she was walking and with no antecedent symptoms such as chest pain, pressure or squeezing, di aphoresis, nausea, dizziness, lightheadedness, or any focal neurologic symptoms. She collapsed and s truck her forehead. She had a small cut over her left eyebrow and swelling associated with laceratio n and she was brought to the hospital. About 2 months ago she had a similar episode of syncope where in the morning while she was walking around, she simply lost consciousness. Again, she had no antec edent symptoms and separate from these 2 events. She denies any history of anginal symptoms, dyspnea at rest or on exertion, any palpitations, any dizziness, any lightheadedness or any focal neurologic symptoms. Her head CT showed no obvious abnormalities to explain the event. Her carotid ultrasound was unremarkable and her EKG was fairly unremarkable. Although her heart rates were in the 50s to 6 0s, her blood pressures were actually in the 140-180 systolic range. While on telemetry, however, shelly euceda had about a 10 beat run of ventricular tachycardia that was asymptomatic and plans for a nuclear st ress test were aborted and she was taken to cardiac catheterization which demonstrated 3-vessel coron bonny artery disease. PAST MEDICAL HISTORY: Significant for hypothyroidism, obstructive sleep apnea, and osteoarthritis. HOME MEDICATIONS: An unknown dose of hydrochlorothiazide, Synthroid 150 mcg a day, Mobic 15 mg a day , and Singulair 10 mg a day. She currently is on hydrochlorothiazide 12.5 mg a day, lisinopril 2.5 m g a day, Synthroid 100 mcg a day, Mobic 15 mg a day, and Singulair 10 mg a day. ALLERGIES: She denies any medical allergies, but does say that fairly recently after eating a salad with raw spinach in it, she started itching that she was told that perhaps she was allergic to SPINAC H. She has never smoked. She does not drink alcohol. FAMILY HISTORY: Significant for siblings and children who have undergone heart surgery. REVIEW OF SYSTEMS: As above. She denies any transient eye, speech, facial or extremity symptoms con sistent with TIAs. She has pain involving both knees. She has had deliberate 50-60 pounds weight lo ss over the last several months. She has not had any change in bowel or bladder habits, any change i n color, character, caliber stools. No hematemesis, hematochezia, or melena. She has not had any pa lpitations, any chest pain, any shortness of breath. PHYSICAL EXAMINATION: GENERAL: She is fairly obese woman in no distress. She stands 5 feet 5 inches tall, weighs 270 poun ds. She has been in sinus rhythm, rates in the mid 50s-60s, blood pressure 140-180/65-75, room air O 2 sats are 93%-97%. She has a small repair laceration above the left eye and she has what appears to represent some resolving swelling and some hematoma that is diffusing in the left periorbital area. NECK: She has no JVD, no carotid bruits. CHEST: Clear to auscultation. CARDIOVASCULAR: She has a regular rate and rhythm without murmur or gallop. ABDOMEN: Obese, soft and nontender. EXTREMITIES: She has a soft splint or brace on her right wrist. Her left radial pulse is bounding. She has palpable but weak dorsalis pedis pulses. She has what appears to be some pretibial varicosi ties on the right side and some venous stasis pigmentation changes at the left ankle. Capillary refi ll in the feet is 1 to 1-1/2 seconds. She has no clubbing, cyanosis or edema. NEUROLOGIC: Grossly nonfocal and she has no difficulty following me with her eyes. LABORATORY DATA: She had white count of 6.3, hemoglobin 13.9, hematocrit 40.9 and platelets 187,000 with an MCV of 92.3. Sodium is 139, potassium 3.7, chloride 108, CO2 19, glucose on admission was 14 1, the next day was 99. BUN was 18, creatinine 0.68. Follow up BUN and creatinine were 13 and 0.56 respectively. Calcium is 9.2, phosphorus 3.1, magnesium 2.0, protein 7.0, albumin 3.3, total bilirub in 0.8, alkaline phosphatase 90, AST 18, and ALT 17. TSH was less than 0.0025. Free T4 slightly hig h at 1.76 and free T3 within normal range at 2.28. All of her troponins were less than 0.010. Her E KG sinus rhythm with some nonspecific ST changes. Hemoglobin A1c was 5.2. Fasting lipids, triglycer ides 70, cholesterol 144, LDL [address] showed no intracranial injuries and a supraorbi smiley hematoma on the left side. Chest x-ray showed normal cardiac silhouette, no apparent calcificati ons in the aortic knob, slightly prominent pulmonary markings at the bases. Carotid ultrasound showe d minimal plaque and some tortuosity in the left with right-sided velocities of 59, 59 and 84 in the internal and 68, 63 and 51 in the common for a ratio of 1.23. On the left, internal carotid velociti es are 72, 68 and 60 and common were 75, 73 and 66, total ratio 1.47. Her cardiac catheterization sh owed right dominant system. She has filling defect in the proximal right coronary that is on the ord er of about 60%, but engaging the right coronary led to ventricularization of the pressure tracing hendrickson ggestive of significant ostial lesion that is not as easily demonstrated angiographically. She has d iffuse luminal irregularity associated with LAD with focal 60%-70% lesion just proximal to the first septal print production associate and black extending beyond that. There is plaque affecting the ostium and proximal portion of a small diagonal that comes off at about that level. She has one significant obtuse dayanna inal that is a rather large vessel with about 90% ostial lesion in it. LVEF was around 60%, perhaps even 70%. LV pressure was 181/7 with an EDP of 20. Aortic pressure was 204/79 with a mean of 125. IMPRESSION AND PLAN: Three-vessel coronary disease including proximal LAD lesion in ostial right and proximal right lesion and a subtotal lesion in the circumflex system while it may not be proved posi tive that her coronary artery disease is related to her syncope. It certainly all fits with tachycar aure being a manifestation of ischemia and V-tach sustained for a long enough period leading to syncop e. I will plan on coronary revascularization.
[2018-02-10] MEDS: Levothyroxine Sodium 100 MCG TAB PO SCH (05:26)
[2018-02-10] MEDS ORDERED: Fentanyl 250 MCG/5 ML VIAL ONE (06:20)
[2018-02-10] MEDS ORDERED: Midazolam HCl 5 mg/5 ml Vial ONE (06:20)
[2018-02-10] MEDS ORDERED: Vecuronium 10 MG VIAL ONE ×2 (06:20→14:41)
[2018-02-10] MEDS ORDERED: CEFAZOLIN/Water 2 GM/20 ML SYRINGE ONE (06:20)
[2018-02-10] MEDS ORDERED: Dexmedetomidine 200 MCG/2 ML VIAL ONE (06:20)
[2018-02-10] MEDS ORDERED: Albumin 5% 500 ML ONE (06:32)
[2018-02-10] MEDS ORDERED: Heparin 10,000 UNITS/1 ML VIAL 30,000 UNITS in Sodium Chloride 0.9% 1,000 ML FS SCH (06:45)
[2018-02-10] MEDS ORDERED: Hetastarch 6% 500 ML 500 ML IVPB PRN (07:13)
[2018-02-10] MEDS ORDERED: Nitroglycerin 50 MG/250 ML BOT 250 ML IVPB PRN (07:13)
[2018-02-10] MEDS ORDERED: Post-Op Insulin Drip Protocol IVPB ONE (07:13)
[2018-02-10] MEDS ORDERED: Potassium Chloride 20 MEQ/100 ML PREMIX BAG IVPB PRN (07:13)
[2018-02-10] MEDS ORDERED: Guaifenesin DM 100-10/5 ML UDCUP PO PRN (07:13)
[2018-02-10] MEDS ORDERED: Mag-Al 1200 mg/1200 mg/30 ML UDCUP PO PRN (07:13)
[2018-02-10] MEDS ORDERED: Bisacodyl 10 MG SUPP PR PRN (07:13)
[2018-02-10] MEDS ORDERED: Fentanyl 100 MCG/2 ML VIAL SLOW IVP PRN ×2 (07:13)
[2018-02-10] MEDS ORDERED: Promethazine HCl 25 MG/ML VIAL IM PRN (07:13)
[2018-02-10] MEDS ORDERED: Acetaminophen 325 MG TAB PO PRN (07:13)
[2018-02-10] MEDS ORDERED: Ondansetron PF 4 MG/2 ML Vial IVP PRN (07:13)
[2018-02-10] MEDS ORDERED: Bisacodyl 5 MG TAB PO PRN (07:13)
[2018-02-10] MEDS ORDERED: Norepinephrine 8 MG/0.9% NS 250 ML IVPB PRN (07:13)
[2018-02-10] MEDS ORDERED: hydrALAZINE 20 MG/ML VIAL SLOW IVP PRN (07:13)
[2018-02-10] MEDS ORDERED: Insulin Regular 300 UNITS/3 ML VIAL ONE (07:39)
[2018-02-10] MEDS ORDERED: PHENYLEPHRINE-NS 100 MCG/ML 10 ML SYRINGE ONE (07:39)
[2018-02-10 08:32] LABS: Bilirubin Negative (Negative); Blood, Urine Negative (Negative); Clarity CLOUDY (Clear); Glucose, Urine (Dipstick) Negative (Negative); Leukocyte Large (Negative); Nitrite Positive (Negative); Protein, Urine (Dipstick) Negative (Neg-Trace); Specific Gravity, Urine 1.015 (1.002-1.036)
[2018-02-10 08:35] LABS: Bacteria/HPF 4+ HPF (None Seen); Pathc Cast-AUWi Flag 1.45 (0-2.49); Squamous Epithelial None Seen HPF (0-3)
[2018-02-10 08:46] LABS: Hyaline Casts/LPF 0-3 HYALINE CAST LPF (0-3 Hyaline); RBC/HPF 0-3 HPF (0-3)
--- NOTE | 2018-02-10 09:13 | PDOC.FM ---
- Objective MAR Reviewed: Yes Vital Signs & Weight: Vital Signs (12 hours) Temp Pulse Resp BP Pulse Ox 02/10/18 03:36 98.9 F 63 16 173/75 H 96 I&O: 02/09/18 02/10/18 02/11/18 06:59 06:59 06:59 Intake Total 840 Balance 840 Result Diagrams: 02/08/18 04:14 02/08/18 04:14 EKG Reviewed by me: Yes Radiology Reviewed by me: Yes <Katharina Bailey - Last Filed: 02/10/18 09:12> - Objective Vital Signs & Weight: Vital Signs (12 hours) Temp Pulse Resp BP Pulse Ox 02/10/18 03:36 98.9 F 63 16 173/75 H 96 I&O: 02/09/18 02/10/18 02/11/18 06:59 06:59 06:59 Intake Total 840 Balance 840 Result Diagrams: 02/08/18 04:14 02/08/18 04:14 <Leonardo Boyd - Last Filed: 02/10/18 12:16> Dx/Plan (1) Syncope and collapse Code(s): R55 - SYNCOPE AND COLLAPSE Status: Acute (2) Facial laceration Code(s): S01.81XA - LACERATION W/O FOREIGN BODY OF OTH PART OF HEAD, INIT ENCNTR Status: Acute (3) Right wrist injury Code(s): S69.91XA - UNSP INJURY OF RIGHT WRIST, HAND AND FINGER(S), INIT ENCNTR Status: Acute (4) Hypothyroidism Code(s): E03.9 - HYPOTHYROIDISM, UNSPECIFIED Status: Chronic (5) SOLOMON (obstructive sleep apnea) Code(s): G47.33 - OBSTRUCTIVE SLEEP APNEA (ADULT) (PEDIATRIC) Status: Chronic (6) Osteoarthritis Code(s): M19.90 - UNSPECIFIED OSTEOARTHRITIS, UNSPECIFIED SITE Status: Chronic - Plan Plan: CAD s/p CABG today - Cath showed severe LAD occlusion of 80% Syncope and collapse - 2 episodes in last month, unprovoked and on exertion - Differentials include orthostatic hypotension, Sick sinus syndrome, TIA, Vasovagal syncope, CAD - Symptoms less c/w stroke: Strength 5/5 bilaterally, CN II-XII intact, no focal deficits - Orthostatic vital signs borderline, but not diagnostic - Monitor on telemetry for rhythm abnormalities; 12 beats of vtach after stress test yesterday - Mild fluid resuscitation with LR - Echo read pending - TSH < 0.0025 which may have contributed; will decrease dose of levothyroxine; t3 nml, t4 elevated - No carotid bruits or murmur on physical exam; carotid dopplers negative - Electrolytes wnl - Plan for cardiac cath this AM - EKG NSR - Brain CT negative - Pt had cardiac cath done today which showed 80% occlusion of LAD. She has spoken with CV surgery and there are plans for CABG tomorrow morning at 7:00. Left eyebrow laceration - s/p approximation with dermabond; hemostatic Right wrist injury - s/p fall - Xray right wrist shows some changes that may indicate fracture - Pt placed in wrist splint - Pain control Hypothyroidism - TSH 0.0025; t3 nml, t4 elevated - Decreased dose of levothyroxine SOLOMON - Continue CPAP at night OA - Pain control with home meloxicam dose CODE STATUS: FULL DVT PPX: SCD s GI PPX: pantoprazole Dispo: Change to inpatient. Anticipate LOS >48 hours. s/p cardiac cath. Plan for CABG tmrw. <Katharina Bailey - Last Filed: 02/10/18 09:12> Attending Addendum - Attending Addendum Date/Time: 02/10/18 1216 I personally evaluated the patient and discussed the management with Dr. Bailey. I agree with the History, Examination, Assessment and Plan documented above with any addition or exceptions noted below. Patient going for CABG this morning. Further mgmt per CV surg after her surgery. <Leonardo Boyd - Last Filed: 02/10/18 12:16>
[2018-02-10] MEDS: Sodium Chloride 0.9% 1,000 ML IV SCH (13:19)
[2018-02-10] MEDS: Hydrochlorothiazide 25 MG TAB PO SCH (13:20)
[2018-02-10] MEDS: Montelukast Sodium 10 mg Tablet PO SCH (13:20)
[2018-02-10] MEDS: Meloxicam 15 MG TAB PO SCH (13:20)
[2018-02-10] MEDS: Lisinopril 2.5 MG TAB PO SCH (13:20)
[2018-02-10] MEDS: Famotidine/PF 20 mg/2ml Vial SLOW IVP SCH ×2 (13:20→21:22)
[2018-02-10 13:48] LABS: Base Excess (BEa) -1.9 mEq/L (0 (+/-) 2.5); CO2 Tension 34.3 mmHg (35.0-45.0); Carboxyhemoglobin (COHb) 1.7 gm% (0.0-3.0); Hemoglobin (Hb) 10.5 g/dL (12.0-16.0); O2 Tension (PaO2) 338.3 mmHg (80.0-100.0); pH, Arterial 7.43 (7.35-7.45)
[2018-02-10 13:49] LABS: ALV-art Gradient 331.825 (0-20); Calcium, Ionized 1.4 mmol/L (1.12-1.30); Potassium - ABG Lab 3.4 mmol/L (3.70-5.30); Puncture Site A-LINE
[2018-02-10 14:01] LABS: #Eosinphils 0.3 thou/uL (0.0-0.7); #Lymphocytes 1.4 thou/uL (1.20-3.40); #Monocytes 0.5 thou/uL (0.11-0.59); #Neutrophils 6.7 thou/uL (1.40-6.50); %Basophils 0.3 % (0.0-1.0); %Eosinophils 3.7 % (0.0-10.0); %Monocytes 5.5 % (0.0-10.0); %Neutrophils 74.5 % (42.0-75.0); Mean Corpuscular HGB CONC 34.8 g/dL (32.0-36.0); Mean Corpuscular Hemoglobin 31.8 pg (27.0-31.0); Mean Corpuscular Volume 91.3 fl (81.0-99.0); Platelet Count 175 thou/uL (130-400); RBC Distribution Width 11.4 % (11.5-14.5); Red Blood Cell (RBC) Count 3.45 mill/uL (4.20-5.40)
[2018-02-10 14:08] LABS: INR-International Normal Ratio 1.4; Prothrombin Time 17.4 SEC (12.0-14.7)
[2018-02-10 14:09] LABS: PTT 34.3 SEC (22.9-36.1)
[2018-02-10 14:23] LABS: Potassium 3.3 mmol/L (3.5-5.1)
[2018-02-10 14:28] LABS: Anion Gap 12 mmol/L (10-20); BUN (Urea Nitrogen) 11 mg/dL (9.8-20.1); Calc. Creatinine Clearance 135 mL/min (70-130); Calcium 9.6 mg/dL (7.8-10.44); Carbon Dioxide 21 mmol/L (23-31); Chloride 111 mmol/L (98-107); Estimated GFR-MDRD Greater than 90; Glucose 145 mg/dL (83-110); Potassium 3.5 mmol/L (3.5-5.1); Sodium 140 mmol/L (136-145)
[2018-02-10] MEDS: Ketorolac Tromethamine 30 MG/ML VIAL IVP SCH ×3 (14:28→23:15)
[2018-02-10] MEDS ORDERED: Magnesium 5 GM/10 ML VIAL ONE (14:41)
[2018-02-10] MEDS ORDERED: PROPOFOL 200 MG/20 ML VIAL ONE (14:41)
[2018-02-10] MEDS ORDERED: Heparin 5,000 UNITS/ML VIAL ONE (14:41)
[2018-02-10] MEDS ORDERED: Glycopyrrolate 0.2 MG/ML 5 ML SYRINGE ONE (14:41)
[2018-02-10] MEDS ORDERED: Norepinephrine 4 MG/4 ML VIAL ONE (14:41)
[2018-02-10] MEDS ORDERED: Mannitol 12.5 GM/50 ML ONE (14:41)
[2018-02-10] MEDS ORDERED: Potassium Chlo 10 mEq/5 ml Syr ONE (14:41)
[2018-02-10] MEDS ORDERED: Heparin 30,000 units/30 ml VIAL ONE (14:41)
[2018-02-10] MEDS ORDERED: Calcium Chloride 1 GM/10 ML Abboject SYRINGE ONE (14:41)
[2018-02-10] MEDS ORDERED: Cardioplegic Soln 1,000 ML BAG ONE (14:41)
[2018-02-10] MEDS ORDERED: Protamine Sulfate 250 MG/25 ML VIAL ONE (14:41)
[2018-02-10] MEDS ORDERED: Sodium Bicarb 50 MEQ/50 ML Abboject 8.4% SYRINGE ONE (14:41)
[2018-02-10] MEDS ORDERED: Lidocaine 2% PF 100 mg/5 ml Syringe ONE (14:41)
[2018-02-10] MEDS ORDERED: Tranexamic Acid 1,000 MG/10 ML VIAL ONE (14:41)
[2018-02-10] MEDS ORDERED: Nitroglycerin 50 MG/250 ML BOT ONE (14:41)
[2018-02-10] MEDS ORDERED: Papaverine 60 MG/2 ML VIAL ONE (14:41)
--- NOTE | 2018-02-10 14:41 | RAD ---
PORTABLE CHEST: HISTORY: Postop open heart surgery. COMPARISON: 02/07/18 exam. Heart size appears slightly enlarged. Postop sternotomy changes are now seen. Right subclavian line is seen with catheter tip overlying the superior vena cava/right atrium junction. Midline chest tub e and tube overlying the left hemidiaphragm are noted. Lungs are clear of infiltrates. IMPRESSION: 1. Postop sternotomy change. 2. Endotracheal tube in satisfactory position. POS: [facility]
[2018-02-10] MEDS ORDERED: Potassium Chloride 40 MEQ in Premix Bag 1 BAG IVPB SCH (16:00)
[2018-02-10] MEDS ORDERED: Potassium Chloride 20 MEQ TAB PO SCH (16:00)
--- NOTE | 2018-02-10 16:46 | CON ---
DATE OF CONSULTATION: 02/10/2018 SERVICE: Pulmonary Medicine. REASON FOR CONSULTATION: ICU patient. HISTORY OF PRESENT ILLNESS: The patient is a 78-year-old female with past medical history s ignificant for recent episodes of syncope. She did not have any prodrome. She struck her head and g ot a laceration that required intervention. Ultimately, she was placed on telemetry. She underwent a cardiac stress test. The first half was essentially unremarkable, but waiting for the second half, she developed a nonsustained ventricular tachycardia run. The second half of the study was abandone d. She underwent cardiac catheterization demonstrating multivessel disease. Ultimately, she was ref erred to Cardiothoracic Surgery who took her to the operating room today where she underwent coronary bypass graft. She cannot provide additional elements of the history. She had a brief episode of el evated blood pressure and was on nitroglycerin for a short period of time. This has subsequently bee n discontinued. Family was updated at bedside. She is actually doing quite well. PAST MEDICAL HISTORY: 1. Coronary artery disease, severe. 2. Hypothyroidism. 3. Osteoarthritis. 4. Chronic venous stasis. 5. Obstructive sleep apnea. PAST SURGICAL HISTORY: 1. Cataract surgery of the left and right eye. 2. Left ankle surgery. 3. Left wrist surgery. 4. Hysterectomy. 5. Coronary artery bypass graft x3 vessels. FAMILY HISTORY: Noncontributory. SOCIAL HISTORY: Negative for alcohol, tobacco or illicit drug use. ALLERGIES: No known drug allergies. MEDICATIONS: List of her inpatient medications were reviewed. No specific updates were made at this time. REVIEW OF SYSTEMS: This cannot be obtained because the patient is currently under the influence of s ome sedation. PHYSICAL EXAMINATION: VITAL SIGNS: Afebrile, pulse 70, blood pressure 109/61, respirations 13, saturation 100% on 27% FiO2 and a PEEP of 5. GENERAL: The patient is intubated and sedated. HEENT: Normocephalic, atraumatic. Sclerae are white, conjunctivae pink. Oral mucosa is moist witho ut lesions. LUNGS: Excellent air entry. I do not see a prolonged expiratory phase on ventilator waveforms. HEART: Normal rate and regular. ABDOMEN: Soft, nontender, and nondistended. Bowel sounds are positive. MUSCULOSKELETAL: No cyanosis or clubbing. There is no pitting in the bilateral lower extremities. NEUROLOGIC: Grossly nonfocal. GENITOURINARY: There is a Parker catheter in place in that lines. She had a mediastinal drain, chest tube, A wire, V wire, endotracheal tube and Parker catheter. LABORATORY DATA: WBC 9.0, hemoglobin 11.0, platelets 175. INR 1.4. A pH 7.43, pCO2 of 34, PO2 of 3 38. This is on a PEEP of 5 and an FiO2 of 50% at that time. Basic metabolic profile is essentially unremarkable except for chloride of 111. Potassium 3.3 and down trending. Urinalysis is essentially unremarkable other than white blood cell count of greater than 50. Urine culture is growing presump tive E. coli. IMAGING DATA: 1. Chest x-ray demonstrates endotracheal tube in good position about 4 cm above the level of the car franklin. There is a right-sided subclavian central venous catheter that terminates just distal to the ca voatrial junction. Mediastinal drain is noted. There is also a thoracostomy tube in place, but I ca nnot currently identify it. I do not see a significant pleural parenchymal abnormality other than a small left-sided pleural effusion. 2. Carotid Doppler study demonstrates no hemodynamically significant stenoses of the bilateral carot ids. 3. Stress test demonstrates 66% ejection fraction. There is homogeneous distribution of the tracer in the left ventricle, but the stress portion of the study was not performed. 4. Wrist x-ray demonstrates degenerative arthritis. Subtle lucencies in the distal radius. 5. CT of the brain demonstrates no acute intracranial abnormality. Soft tissue swelling is above th e left eye. ASSESSMENT: 1. Acute hypoxic respiratory failure. 2. Metabolic encephalopathy associated with anesthesia. 3. Coronary artery disease, postop day #1 from coronary artery bypass graft x3 vessels. 4. Hypothyroidism. 5. Urinary tract infection. PLAN: We will replace the patient's potassium. I will add antibiotics directed at E. coli urinary t ract infection. We will wean the ventilator as tolerated. I have made multiple adjustments to it at bedside. When she wakes up from anesthesia, we will put on a spontaneous breathing trial should be considered for extubation. Pulmonary or Critical Care will continue to follow along. CRITICAL CARE TIME: 30 minutes.
[2018-02-10] MEDS ORDERED: cefTRIAXone\\ROCEPHIN 1 GM in Sodium Chloride 0.9% 100 ML IVPB SCH (17:00)
[2018-02-10] MEDS ORDERED: Dextrose 5% in Water 1,000 ML IV PRN (18:42)
[2018-02-10] MEDS ORDERED: Insulin Regular 300 UNITS/3 ML VIAL SC PRN (18:42)
[2018-02-10] MEDS ORDERED: Dextrose 50% Abboject 50 ML SYRINGE SLOW IVP PRN (18:42)
[2018-02-10 19:54] LABS: Hemoglobin 11.4 g/dL (12.0-16.0)
[2018-02-10 20:32] LABS: Potassium 5.1 mmol/L (3.5-5.1)
--- NOTE | 2018-02-10 20:40 | OP ---
DATE OF PROCEDURE: 02/10/2018 PROCEDURES PERFORMED: Coronary artery bypass grafting x3 with left internal mammary artery to the LA D and reverse greater saphenous vein graft from the aorta to the RCA/PDA and from the aorta to the ob tuse marginal, and right subclavian central line placement. PREOPERATIVE DIAGNOSIS: Coronary artery disease. POSTOPERATIVE DIAGNOSIS: Coronary artery disease. SURGEON: Darrin Celis MD. ANESTHESIA: General endotracheal. INDICATIONS: The patient is a 78-year-old woman who presented with her second episode of abrupt sync ope over the last 2-3 months. On telemetry monitoring, she had an asymptomatic run of ventricular ta chycardia that was self-limited prompting cardiac catheterization that demonstrated 3-vessel coronary disease including lesions in the proximal LAD. The ostium of the large obtuse marginal and the osti um of the right coronary. She is now taken to the operating room for revascularization. FINDINGS: The pump time 88 minutes. Cross clamp time 42 minutes. Good quality TATA, good quality sa phenous vein became somewhat small and had some scattered varicosities below the knee. The LAD was a bout 2 mm vessel. The obtuse marginal was a large vessel but had island of plaque in its mid portion . The distal vessel was still about 2 mm in diameter. The RCA had some distal plaquing, but at the crux it was about a 3-3.5 mm good quality vessel leading to about a 2 mm PDA. The pericardium was cl osed. NARRATIVE REPORT: After informed consent was obtained, the patient was taken to the operating room a nd placed in supine position on the operating table. After the induction of general anesthesia, the patient's torso, groins and lower extremities were prepped and draped in sterile fashion. After vivian michael first placed a right subclavian central line by the Seldinger technique under sterile technique, t be ultrasonographically located greater saphenous vein was exposed through an incision just above the knee on the left lower thigh. Vein was endoscopically harvested up to near the saphenofemoral junct ion at the groin and about a handbreadth below the knee. The vein was prepared for use as a graft an d the harvest sites were closed in layers subcutaneous and subcuticular Vicryl. Median sternotomy wa s performed and the left TATA was mobilized as a pedicle from the level of the xiphoid to the level of the subclavian vein through an extrapleural exposure. The patient was heparinized. The mammary was ligated and divided distally. There was excellent flow through the mammary, which was instilled int raluminally with papaverine solution. The mammary bed was inspected for hemostasis. The TATA retract or was replaced with the Miguel retractor. The pericardium was opened and marsupialized. The aort a was palpated and was soft. A double concentric pursestring of 2-0 Ethibond was placed in the ascen ding aorta just within the pericardial reflection and a single pursestring was placed in the right at rial appendage. Aortic and venous cannula were inserted and secured by the pursestrings. Cardiopulm onary bypass was instituted and the patient was allowed to systemically cool. The heart was examined . The vessel to be bypassed were identified. A longitudinal slit was made in the pericardium anteri or to the left phrenic nerve as to the mammary pedicle could be passed and aortic cross clamp was katlyn lied and cardioplegia was administered through an aortic root needle. When arrest been achieved, att ention was turned to the obtuse marginal. It was exposed and opened just distal to an island of plaq ue in its mid portion. Reverse greater saphenous vein was anastomosed end-to-side with running Prole ne suture and the anastomosis tested by flushing cold cardioplegia down the graft. Attention was the n turned to the distal right coronary system. It was exposed and opened in similar fashion taking th e arteriotomy about 2 mm down onto the PDA. Saphenous vein was anastomosed there in a similar fashio n. The LAD was then opened and the mammary was anastomosed to it with running 7-0 Prolene. Mammary pedicle was tacked to the epicardium. The aortic crossclamp was replaced with partial occluded clamp and aortotomies were made in the ascending aorta with a scalpel and punch incorporating the route ne edle site for the more distal aortotomy. The right coronary system graft was brought along the right side of the heart and anastomosed to the more proximal aortotomy exercising most of the infragenicul ate vein. The obtuse marginal graft was anastomosed more distal aortotomy. The partial occluding cl amp was removed and the vein grafts were deaired. The anastomoses were inspected for hemostasis and the proximal anastomoses were marked with small Hemoclips. Posterior pericardial drain was brought o ut through separate incisions and secured with suture. Right atrial and right ventricular temporary epicardial pacing wires were placed. [facility] The aortic and venous cannula were inserted and secured. The aortic and venous cannulae were re moved. The pursestring secured. Protamine was administered. When hemostasis was adequate, an anter ior mediastinal drain was placed and the pericardium was easily closed over it with running Vicryl. The sternum was reapproximated with #7 stainless steel wires. The fascia was closed over the wires w ith heavy Vicryl. Subcutaneous tissue was irrigated and reapproximated and the skin was closed with Vicryl subcuticular stitch. The wounds were dressed and the patient was taken to the intensive care unit in stable condition.
[2018-02-10 20:47] LABS: Actual Bicarbonate (HCO3a) 22.1 mEq/L (22-26); Base Excess (BEa) -2.4 mEq/L (0 (+/-) 2.5); CO2 Tension 37.2 mmHg (35.0-45.0); Carboxyhemoglobin (COHb) 2.2 gm% (0.0-3.0); Hematocrit-ABG 30.6 % (36.0-47.0); Hemoglobin (Hb) 11.1 g/dL (12.0-16.0); O2 Tension (PaO2) 84.1 mmHg (80.0-100.0); pH, Arterial 7.39 (7.35-7.45)
[2018-02-10 20:48] LABS: Calcium, Ionized 1.3 mmol/L (1.12-1.30); Potassium - ABG Lab 4.8 mmol/L (3.70-5.30); Puncture Site LINE
[2018-02-10] MEDS: Atorvastatin Calcium 10 MG TAB PO SCH (21:21)
[2018-02-11] MEDS: Sodium Chloride 0.9% 1,000 ML IV SCH (03:55)
[2018-02-11 03:56] LABS: #Lymphocytes 0.8 thou/uL (1.20-3.40); #Monocytes 0.9 thou/uL (0.11-0.59); #Neutrophils 9.3 thou/uL (1.40-6.50); %Basophils 0.4 % (0.0-1.0); %Eosinophils 0.1 % (0.0-10.0); %Lymphocytes 6.8 % (21.0-51.0); %Monocytes 8.3 % (0.0-10.0); %Neutrophils 84.3 % (42.0-75.0); Hemoglobin 10.9 g/dL (12.0-16.0); Mean Corpuscular HGB CONC 35.1 g/dL (32.0-36.0); Mean Corpuscular Hemoglobin 32.2 pg (27.0-31.0); Mean Corpuscular Volume 91.7 fl (81.0-99.0); Mean Platelet Volume 8.4 fL (7.4-10.4); Platelet Count 196 thou/uL (130-400); RBC Distribution Width 11.7 % (11.5-14.5); Red Blood Cell (RBC) Count 3.37 mill/uL (4.20-5.40)
[2018-02-11 04:09] LABS: Anion Gap 9 mmol/L (10-20); BUN (Urea Nitrogen) 17 mg/dL (9.8-20.1); Calc. Creatinine Clearance 109 mL/min (70-130); Calcium 8.6 mg/dL (7.8-10.44); Carbon Dioxide 22 mmol/L (23-31); Chloride 113 mmol/L (98-107); Estimated GFR-MDRD Greater than 90; Glucose 143 mg/dL (83-110); Potassium 4.3 mmol/L (3.5-5.1); Sodium 140 mmol/L (136-145)
[2018-02-11] MEDS ORDERED: Levothyroxine Sodium 100 MCG TAB PO SCH (06:00)
[2018-02-11] MEDS: Ketorolac Tromethamine 30 MG/ML VIAL IVP SCH (06:17)
--- NOTE | 2018-02-11 07:17 | PRG ---
DATE OF SERVICE: 02/11/2018 SERVICE: Pulmonary Medicine. INTERVAL HISTORY: The patient is doing fantastic. She was extubated comfortably yesterday. She rem ains on room air. She denies any current chest pain, nausea, vomiting, fevers or chills. She has so me discomfort in her chest whenever she coughs or when she takes a deep breath. I explained the impo rtance of this to her. She is in a chair currently. She is going to work on mobility today. She co ntinues to have chest tube and a mediastinal drain. Otherwise, there has been no significant change to her condition. PHYSICAL EXAMINATION: VITAL SIGNS: Afebrile with a T-max of 100.1, pulse 75, blood pressure 106/52, respirations 18, satur ation 97% on room air. GENERAL: The patient is awake, alert, no apparent distress. LUNGS: Excellent air entry with no prolonged expiratory phase. There are depending crackles, which are minimal. HEART: Normal rate, regular. ABDOMEN: Soft, nontender, nondistended. Bowel sounds are positive. MUSCULOSKELETAL: No cyanosis or clubbing. There is trace pitting in the right lower extremity and n o pitting in the left lower extremity. GENITOURINARY: Parker catheter in place. NEUROLOGIC: Grossly nonfocal. LABORATORY DATA AND X-RAY FINDINGS: WBC 11.0, hemoglobin 10.9 and stable, platelets 196,000. INR 1. 4. Basic metabolic profile is unremarkable. Chloride 113 and gently up trending. Sodium is also at the upper limits of normal at 140. Urine culture is growing E. coli, which is sensitive to Rocephin , but resistant to the fluoroquinolones. Chest x-ray demonstrates no acute interval change other nayana n extubation. There is a right subclavian central venous catheter that terminates in good position. There is a left-sided pleural parenchymal change likely consistent with a small pleural effusion. ASSESSMENT: 1. Acute hypoxic respiratory failure. 2. Metabolic encephalopathy associated with anesthesia, resolved. 3. Coronary artery disease, postop day #1 from coronary artery bypass graft x3 vessels. 4. Hypothyroidism. 5. Urinary tract infection secondary to Escherichia coli. PLAN: We will continue Rocephin for a total duration of 7 days. Hopefully, the Parker catheter will be removed in short order. We will continue working on mobility throughout the day and she will like ly transition to the floor in 0-1 days. Pulmonary and Critical Care will continue to follow along wh ile she remains in house. At this point, she is tolerating p.o. and demonstrates minimal volume over load. As such, IV fluids will be interrupted.
[2018-02-11] MEDS: Montelukast Sodium 10 mg Tablet PO SCH (07:59)
[2018-02-11] MEDS: Famotidine/PF 20 mg/2ml Vial SLOW IVP SCH ×2 (07:59→20:57)
[2018-02-11] MEDS: Hydrochlorothiazide 25 MG TAB PO SCH (07:59)
[2018-02-11] MEDS: Lisinopril 2.5 MG TAB PO SCH (08:07)
--- NOTE | 2018-02-11 08:44 | RAD ---
CHEST 1 VIEW: COMPARISON: 02/10/18. HISTORY: Status post open heart surgery. FINDINGS: Sternotomy wires are redemonstrated. Interval removal of the endotracheal tube. A mediastinal drain age catheter is again noted. Stable right-sided central venous catheter. Heart is enlarged. Pulmon bonny vessels and hilum are normal. Right costophrenic angles is clear. Minimal blunting of the costo phrenic angle due to small effusion or atelectasis. No pneumothorax. IMPRESSION: Findings compatible with recent open heart surgery. POS: CONCH[facility]
--- NOTE | 2018-02-11 09:24 | PDOC.FM ---
- Subjective Subjective: Patient doing well this AM. No significant overnight events. Patient sitting in chair by bedside this AM. Her pain is fairly well controlled. Patient denies any current chest pain, shortness of breath, palpitations, or headaches. Family was by bedside this AM. - Objective MAR Reviewed: Yes Vital Signs & Weight: Vital Signs (12 hours) Temp Pulse Resp Pulse Ox 02/11/18 08:00 98.6 F 02/11/18 07:47 98.6 F 73 22 H 95 02/11/18 04:00 98.0 F 02/11/18 00:00 98.6 F 98 02/10/18 22:00 98.7 F Weight Weight 96.9 kg Most Recent Monitor Data Heart Rate from ECG 77 NIBP 95/41 NIBP BP-Mean 60 Respiration from ECG 17 SpO2 99 I&O: 02/10/18 02/11/18 02/12/18 06:59 06:59 06:59 Intake Total 840 1967 101.3 Output Total 1210 21 Balance 840 757 80.3 Result Diagrams: 02/11/18 03:30 02/11/18 03:30 EKG Reviewed by me: Yes Radiology Reviewed by me: Yes <Katharina Bailey - Last Filed: 02/11/18 09:25> - Objective Vital Signs & Weight: Vital Signs (12 hours) Temp Pulse Resp Pulse Ox 02/11/18 12:00 97.9 F 02/11/18 08:00 98.6 F 02/11/18 07:47 98.6 F 73 22 H 95 02/11/18 04:00 98.0 F Weight Weight 96.9 kg Most Recent Monitor Data Heart Rate from ECG 74 NIBP 108/42 NIBP BP-Mean 79 Respiration from ECG 23 SpO2 96 I&O: 02/10/18 02/11/18 02/12/18 06:59 06:59 06:59 Intake Total 840 1967 151.3 Output Total 1210 88 Balance 840 757 63.3 Result Diagrams: 02/11/18 03:30 02/11/18 03:30 <Larry Abraham - Last Filed: 02/11/18 12:17> Phys Exam - Physical Examination Constitutional: NAD HEENT: moist MMs, sclera anicteric Neck: no nodes, supple Respiratory: no wheezing, no rales, clear to auscultation bilateral Cardiovascular: RRR, no significant murmur chest tube in place Gastrointestinal: soft, no distention, positive bowel sounds Musculoskeletal: no edema, pulses present Neurological: non-focal, moves all 4 limbs Psychiatric: normal affect, A&O x 3 Skin: cap refill <2 seconds Deviation from normal: CABG incision appears clean, dry and intact <Katharina Bailey - Last Filed: 02/11/18 09:25> Dx/Plan (1) CAD (coronary artery disease) Code(s): I25.10 - ATHSCL HEART DISEASE OF [place] CORONARY ARTERY W/O ANG PCTRS Status: Acute (2) Syncope and collapse Code(s): R55 - SYNCOPE AND COLLAPSE Status: Acute (3) Facial laceration Code(s): S01.81XA - LACERATION W/O FOREIGN BODY OF OTH PART OF HEAD, INIT ENCNTR Status: Acute (4) Right wrist injury Code(s): S69.91XA - UNSP INJURY OF RIGHT WRIST, HAND AND FINGER(S), INIT ENCNTR Status: Acute (5) Hypothyroidism Code(s): E03.9 - HYPOTHYROIDISM, UNSPECIFIED Status: Chronic (6) SOLOMON (obstructive sleep apnea) Code(s): G47.33 - OBSTRUCTIVE SLEEP APNEA (ADULT) (PEDIATRIC) Status: Chronic (7) Osteoarthritis Code(s): M19.90 - UNSPECIFIED OSTEOARTHRITIS, UNSPECIFIED SITE Status: Chronic - Plan Plan: CAD s/p CABG - Post-op day #1 - Cath showed severe LAD occlusion of 80% - Incision site clean, dry and intact - Pt currently in CCU - CV surgery consulted; appreciated recs Syncope and collapse - 2 episodes in last month, on exertion - Differentials include orthostatic hypotension, Sick sinus syndrome, TIA, Vasovagal syncope, CAD - Symptoms less c/w stroke: Strength 5/5 bilaterally, CN II-XII intact, no focal deficits - Orthostatic vital signs borderline, but not diagnostic - Monitor on telemetry for rhythm abnormalities; 12 beats of vtach after stress test yesterday - TSH < 0.0025 which may have contributed; will decrease dose of levothyroxine; t3 nml, t4 elevated - No carotid bruits or murmur on physical exam; carotid dopplers negative - Electrolytes wnl - Brain CT negative - Pt s/p CABG Left eyebrow laceration - s/p approximation with dermabond; hemostatic Right wrist injury - s/p fall - Xray right wrist shows some changes that may indicate fracture - Pt placed in wrist splint - Pain control Hypothyroidism - TSH 0.0025; t3 nml, t4 elevated - Decreased dose of levothyroxine SOLOMON - Continue CPAP at night OA - Pain control with home meloxicam dose CODE STATUS: FULL DVT PPX: CHERYL hose GI PPX: pantoprazole Dispo: s/p CABG post-op day #2. Will follow CV Surgery recs. <Katharina Bailey - Last Filed: 02/11/18 09:25> Attending Addendum - Attending Addendum Date/Time: 02/11/18 1217 I personally evaluated the patient and discussed the management with Dr. Bailey. I agree with the History, Examination, Assessment and Plan documented above with any addition or exceptions noted below. <Larry Abraham - Last Filed: 02/11/18 12:17>
[2018-02-11] MEDS: HYDROcodone/Acetaminophen 5/325 mg Tablet PO PRN ×2 (13:12→20:57)
--- NOTE | 2018-02-11 14:10 | PDOC.CTH ---
Cardiology Progress Note - Subjective Pt doing well. CT in place. Seen sitting up. - Objective Vital Signs Temp Pulse Pulse Pulse Resp BP BP 02/11/18 12:00 97.9 F 02/11/18 08:41 70 75 95/41 L 94/53 L 02/11/18 08:00 98.6 F 02/11/18 07:47 98.6 F 73 22 H 02/11/18 04:00 98.0 F Pulse Ox Pulse Ox Pulse Ox 02/11/18 12:00 02/11/18 08:41 98 96 02/11/18 08:00 02/11/18 07:47 95 02/11/18 04:00 Weight 213 lb 10.047 oz 02/10/18 02/11/18 02/12/18 06:59 06:59 06:59 Intake Total 840 1967 251.3 Output Total 1210 106 Balance 840 757 145.3 - Physical Examination General/Neuro: alert & oriented x3, NAD Neck: carotid US brisk, no JVD present Lungs: CTA, unlabored respirations Heart: RRR Abdomen: no HSM, NT/ND, soft Extremities: + femoral B - Telemetry Telemetry Rhythm: SR - Labs Result Diagrams: 02/11/18 03:30 02/11/18 03:30 Troponin/CKMB CK-MB (CK-2) 0.8 ng/mL (0-6.6) 02/07/18 09:08 Troponin I Less than 0.010 ng/mL (< 0.028) 02/07/18 15:41 - Assessment/Plan 1. Syncope 2. Severe CAD s/p CABG 3. NSVT Syncope likely related to NSVT. Pt with normal EF on cath. Check echo. Discussed lifevest with pt and with EP. Pt with normal EF and recent revascularization unlikely to benefit from lifevest and unlikely to qualify given normal EF. Recommend BB for now. On ASA, statin IS and rehab
[2018-02-11] MEDS ORDERED: cefTRIAXone\\ROCEPHIN 1 GM in Sodium Chloride 0.9% 100 ML IVPB SCH (17:00)
[2018-02-11] MEDS: Metoprolol Tartrate 25 MG TAB PO SCH (20:56)
[2018-02-11] MEDS: Atorvastatin Calcium 10 MG TAB PO SCH (20:57)
[2018-02-12 04:32] LABS: #Basophils 0.1 thou/uL (0.0-0.2); #Eosinphils 0.1 thou/uL (0.0-0.7); #Lymphocytes 1.4 thou/uL (1.20-3.40); #Monocytes 1.1 thou/uL (0.11-0.59); #Neutrophils 8.2 thou/uL (1.40-6.50); %Basophils 0.5 % (0.0-1.0); %Eosinophils 0.7 % (0.0-10.0); %Lymphocytes 13.2 % (21.0-51.0); %Monocytes 9.8 % (0.0-10.0); %Neutrophils 75.8 % (42.0-75.0); Hemoglobin 10.5 g/dL (12.0-16.0); Mean Corpuscular HGB CONC 34.1 g/dL (32.0-36.0); Mean Corpuscular Hemoglobin 31.7 pg (27.0-31.0); Mean Platelet Volume 8.3 fL (7.4-10.4); Platelet Count 190 thou/uL (130-400); Red Blood Cell (RBC) Count 3.31 mill/uL (4.20-5.40); White Blood Cell (WBC) Count 10.8 thou/uL (4.8-10.8)
[2018-02-12 04:46] LABS: Anion Gap 10 mmol/L (10-20); BUN (Urea Nitrogen) 22 mg/dL (9.8-20.1); Calc. Creatinine Clearance 104 mL/min (70-130); Calcium 8.4 mg/dL (7.8-10.44); Carbon Dioxide 22 mmol/L (23-31); Chloride 109 mmol/L (98-107); Estimated GFR-MDRD 84; Glucose 143 mg/dL (83-110); Potassium 3.9 mmol/L (3.5-5.1); Sodium 137 mmol/L (136-145)
[2018-02-12] MEDS: HYDROcodone/Acetaminophen 5/325 mg Tablet PO PRN ×2 (05:03→20:25)
--- NOTE | 2018-02-12 05:50 | PDOC.FM ---
- Subjective Subjective: Patient doing well this AM. No significant overnight events. Patient sitting in chair by bedside this AM. Her pain is fairly well controlled. Patient denies any current chest pain, shortness of breath, palpitations, or headaches. Family was by bedside this AM. - Objective Vital Signs & Weight: Vital Signs (12 hours) Temp Pulse Resp BP Pulse Ox 02/12/18 05:32 98.2 F 80 18 108/74 98 02/12/18 00:00 75 18 104/58 L 97 02/11/18 19:00 98.9 F 72 22 H 103/54 L 95 Weight Weight 97.114 kg Most Recent Monitor Data Heart Rate from ECG 76 NIBP 102/43 NIBP BP-Mean 79 Respiration from ECG 24 SpO2 97 I&O: 02/10/18 02/11/18 02/12/18 06:59 06:59 06:59 Intake Total 840 1967 1157.8 Output Total 1210 239 Balance 840 757 918.8 Result Diagrams: 02/12/18 04:04 02/12/18 04:04 <Lynne Peck - Last Filed: 02/12/18 07:56> - Objective Vital Signs & Weight: Vital Signs (12 hours) Temp Pulse Resp BP BP Pulse Ox 02/12/18 07:58 99.2 F 78 9 L 96 02/12/18 07:32 99.2 F 78 9 L 104/49 L 96 02/12/18 05:32 98.2 F 80 18 108/74 98 02/12/18 00:00 75 18 104/58 L 97 Weight Weight 214 lb 1.6 oz Most Recent Monitor Data Heart Rate from ECG 76 NIBP 102/43 NIBP BP-Mean 79 Respiration from ECG 24 SpO2 97 I&O: 02/11/18 02/12/18 02/13/18 06:59 06:59 06:59 Intake Total 1967 1637.8 Output Total 1210 864 Balance 757 773.8 Result Diagrams: 02/12/18 04:04 02/12/18 04:04 <Edu Navarro - Last Filed: 02/12/18 08:44> Dx/Plan (1) CAD (coronary artery disease) Code(s): I25.10 - ATHSCL HEART DISEASE OF [place] CORONARY ARTERY W/O ANG PCTRS Status: Acute (2) Acute cystitis Code(s): N30.00 - ACUTE CYSTITIS WITHOUT HEMATURIA Status: Acute (3) Facial laceration Code(s): S01.81XA - LACERATION W/O FOREIGN BODY OF OTH PART OF HEAD, INIT ENCNTR Status: Acute (4) Right wrist injury Code(s): S69.91XA - UNSP INJURY OF RIGHT WRIST, HAND AND FINGER(S), INIT ENCNTR Status: Acute (5) Syncope and collapse Code(s): R55 - SYNCOPE AND COLLAPSE Status: Acute (6) Hypothyroidism Code(s): E03.9 - HYPOTHYROIDISM, UNSPECIFIED Status: Chronic (7) SOLOMON (obstructive sleep apnea) Code(s): G47.33 - OBSTRUCTIVE SLEEP APNEA (ADULT) (PEDIATRIC) Status: Chronic (8) S/P CABG (coronary artery bypass graft) Code(s): Z95.1 - PRESENCE OF AORTOCORONARY BYPASS GRAFT Status: Acute Plan: 3V - Plan Plan: CAD s/p CABG on 02/09 - Post-op day #3 - Cath showed severe LAD occlusion of 80% - Incision site clean, dry and intact - Pt currently in CCU - CV surgery consulted; appreciated recs Syncope and collapse - 2 episodes in last month, on exertion - Likely caridogenic 2/2 CAD; pt had 12 beats of vtach during stress, now s/p CABG - Symptoms less c/w stroke: Strength 5/5 bilaterally, CN II-XII intact, no focal deficits - Orthostatic vital signs borderline, but not diagnostic - TSH < 0.0025 which may have contributed; will decrease dose of levothyroxine; t3 nml, t4 elevated - No carotid bruits or murmur on physical exam; carotid dopplers negative - Electrolytes wnl - Brain CT negative Left eyebrow laceration - s/p approximation with dermabond; hemostatic Right wrist injury - s/p fall - Xray right wrist shows some changes that may indicate fracture - Pt placed in wrist splint - Pain control Hypothyroidism - TSH 0.0025; t3 nml, t4 elevated - Decreased dose of levothyroxine SOLOMON - Continue CPAP at night OA - Pain control with home meloxicam dose CODE STATUS: FULL DVT PPX: CHERYL [facility] GI PPX: pantoprazole Dispo: s/p CABG post-op day #3. Will follow CV Surgery recs. <Lynne Peck - Last Filed: 02/12/18 07:56> Attending Addendum - Attending Addendum Date/Time: 02/12/18 0843 I personally evaluated the patient and discussed the management with RESIDENT. I agree with the History, Examination, Assessment and Plan documented above with any addition or exceptions noted below. Continue iv rocephine for uti. Continue care with CT surgery. <Edu Navarro - Last Filed: 02/12/18 08:44>
--- NOTE | 2018-02-12 08:18 | RAD ---
UPRIGHT PORTABLE CHEST 1 VIEW: Date: 02/12/18 HISTORY: 78-year-old female with history of postop open heart follow-up. COMPARISON: 02/11/18. FINDINGS: Recent postop midline sternotomy. Right subclavian catheter. Minimal bibasilar postoperative parenchy mal changes. No pneumothorax or other acute process. IMPRESSION: Stable chest. Continue short-term follow-up. POS: CONCHITA
[2018-02-12] MEDS: Famotidine/PF 20 mg/2ml Vial SLOW IVP SCH ×2 (08:26→20:28)
[2018-02-12] MEDS: Montelukast Sodium 10 mg Tablet PO SCH (08:26)
[2018-02-12] MEDS: Metoprolol Tartrate 25 MG TAB PO SCH ×2 (08:26→20:29)
[2018-02-12] MEDS: cefTRIAXone\\ROCEPHIN 1 GM in Sodium Chloride 0.9% 100 ML IVPB SCH (08:27)
[2018-02-12] MEDS ORDERED: Amiodarone HCl 150 MG in Dextrose 5% in Water 100 ML IVPB SCH (10:00)
[2018-02-12] MEDS ORDERED: Digoxin 0.5 MG/2 ML AMP SLOW IVP SCH (10:00)
[2018-02-12] MEDS ORDERED: Metoprolol Tartrate 5 MG/5 ML VIAL IVP SCH (10:00)
[2018-02-12] MEDS: Amiodarone HCl 450 MG, Admixture Fee 1 EACH in Dextrose 5% in Water 250 ML IVPB SCH ×2 (10:20→18:29)
[2018-02-12 10:26] LABS: ALT (SGPT) 18 U/L (8-55); AST (SGOT) 29 U/L (5-34); Albumin 3.1 g/dL (3.4-4.8); Alkaline Phosphatase 56 U/L (40-150); Bilirubin, Direct 0.4 mg/dL (0.1-0.3); Bilirubin, Total 0.8 mg/dL (0.2-1.2); Potassium 3.8 mmol/L (3.5-5.1); Protein, Total 5.6 g/dL (6.0-8.3)
[2018-02-12] MEDS ORDERED: Dextrose 50% Abboject 50 ML SYRINGE SLOW IVP PRN (10:38)
[2018-02-12] MEDS ORDERED: Dextrose 5% in Water 1,000 ML IV PRN (10:38)
--- NOTE | 2018-02-12 10:41 | PDOC.CTH ---
Cardiology Progress Note - Subjective Doing well. She has been walking with PT. She has a small BM earlier today. - Objective Vital Signs Temp Pulse Resp BP BP Pulse Ox 02/12/18 10:11 180 H 02/12/18 07:58 99.2 F 78 9 L 96 02/12/18 07:32 99.2 F 78 9 L 104/49 L 96 02/12/18 05:32 98.2 F 80 18 108/74 98 02/12/18 00:00 75 18 104/58 L 97 Weight 214 lb 1.6 oz 02/11/18 02/12/18 02/13/18 06:59 06:59 06:59 Intake Total 1967 1637.8 Output Total 1210 864 Balance 757 773.8 - Physical Examination General/Neuro: alert & oriented x3, NAD Neck: no JVD present Lungs: CTA, unlabored respirations Heart: RRR Abdomen: NT/ND Extremities: other: (no edema) - Telemetry Telemetry Rhythm: NSR - Labs Result Diagrams: 02/12/18 04:04 02/12/18 09:50 Troponin/CKMB CK-MB (CK-2) 0.8 ng/mL (0-6.6) 02/07/18 09:08 Troponin I Less than 0.010 ng/mL (< 0.028) 02/07/18 15:41 - Assessment/Plan 1. Syncope 2. Severe CAD s/p CABG 3. NSVT PLAN: - Aspirin and statin for life - BB/ACEI - Increase PT as tolerated. - IS - Will follow.
[2018-02-12] MEDS: HumaLOG 300 UNITS/3 ML VIAL SC PRN (11:24)
--- NOTE | 2018-02-12 14:06 | PRG ---
DATE OF SERVICE: 02/12/2018 SUBJECTIVE: Ms. Medeiros is doing well. She has no complaints. She still has chest tubes in place. OBJECTIVE: VITAL SIGNS: She is afebrile, heart rate is 118, respiratory rate is 22, oximetry is 96% on room air . LUNGS: Clear. HEART: Regular rhythm. ABDOMEN: Soft. EXTREMITIES: Without asymmetry. She has no complaints. Her family feels she is doing well. IMPRESSION: 1. History of syncope with a left orbital rim laceration. 2. Status post coronary artery bypass grafting, clinically doing well. Still with chest tube in ciel[place] ce. 3. Nonsustained ventricular tachycardia. PLAN: Continue supportive care per Cardiology and Cardiothoracic Surgery standpoint. She is stable from a pulmonary standpoint.
[2018-02-12] MEDS: Atorvastatin Calcium 10 MG TAB PO SCH (20:28)
[2018-02-13 04:11] LABS: #Basophils 0.1 thou/uL (0.0-0.2); #Eosinphils 0.2 thou/uL (0.0-0.7); #Monocytes 0.9 thou/uL (0.11-0.59); #Neutrophils 6.4 thou/uL (1.40-6.50); %Basophils 0.6 % (0.0-1.0); %Eosinophils 2.5 % (0.0-10.0); %Lymphocytes 20.8 % (21.0-51.0); %Monocytes 9.3 % (0.0-10.0); %Neutrophils 66.8 % (42.0-75.0); Hemoglobin 9.7 g/dL (12.0-16.0); Mean Corpuscular HGB CONC 34.3 g/dL (32.0-36.0); Mean Corpuscular Hemoglobin 32.4 pg (27.0-31.0); Mean Corpuscular Volume 94.7 fl (81.0-99.0); Mean Platelet Volume 8.6 fL (7.4-10.4); Platelet Count 219 thou/uL (130-400); RBC Distribution Width 12.1 % (11.5-14.5); Red Blood Cell (RBC) Count 2.99 mill/uL (4.20-5.40); White Blood Cell (WBC) Count 9.5 thou/uL (4.8-10.8)
[2018-02-13 04:16] LABS: Anion Gap 10 mmol/L (10-20); BUN (Urea Nitrogen) 21 mg/dL (9.8-20.1); Calc. Creatinine Clearance 106 mL/min (70-130); Calcium 8.6 mg/dL (7.8-10.44); Carbon Dioxide 24 mmol/L (23-31); Chloride 106 mmol/L (98-107); Estimated GFR-MDRD 85; Glucose 135 mg/dL (83-110); Potassium 3.7 mmol/L (3.5-5.1); Sodium 136 mmol/L (136-145)
--- NOTE | 2018-02-13 06:38 | PDOC.FM ---
- Subjective Subjective: No acute events overnight. She feels well this am. She walked yesterday and went into afib with rvr. An EKG was ordered at that time, which confirmed the rate. CV surgery ordered an amiodarone drip. She converted back to NSR about 1400 yesterday. She still has the drip on and HR is in the 90s. - Objective MAR Reviewed: Yes Vital Signs & Weight: Vital Signs (12 hours) Temp Pulse Resp BP BP Pulse Ox 02/13/18 03:52 98.0 F 71 20 109/50 L 96 02/13/18 00:29 97.8 F 73 20 110/47 L 97 02/12/18 19:32 98.7 F 69 21 H 97 02/12/18 19:20 98.7 F 69 21 H 128/55 L 97 Weight Weight 97.114 kg Most Recent Monitor Data Heart Rate from ECG 76 NIBP 102/43 NIBP BP-Mean 79 Respiration from ECG 24 SpO2 97 I&O: 02/11/18 02/12/18 02/13/18 06:59 06:59 06:59 Intake Total 1967 1637.8 1591.5 Output Total 1210 864 575 Balance 757 773.8 1016.5 Result Diagrams: 02/13/18 03:45 02/13/18 03:45 <Lynne Pekc - Last Filed: 02/13/18 07:53> - Objective Vital Signs & Weight: Vital Signs (12 hours) Temp Pulse Resp BP Pulse Ox 02/13/18 07:30 97.5 F L 73 18 94 L 02/13/18 07:19 97.5 F L 73 18 127/52 L 94 L 02/13/18 03:52 98.0 F 71 20 109/50 L 96 02/13/18 00:29 97.8 F 73 20 110/47 L 97 Weight Weight 219 lb 1.6 oz Most Recent Monitor Data Heart Rate from ECG 76 NIBP 102/43 NIBP BP-Mean 79 Respiration from ECG 24 SpO2 97 I&O: 02/12/18 02/13/18 02/14/18 06:59 06:59 06:59 Intake Total 1637.8 2039.5 Output Total 864 1095 Balance 773.8 944.5 Result Diagrams: 02/13/18 03:45 02/13/18 03:45 <Edu Navarro - Last Filed: 02/13/18 08:58> Phys Exam - Physical Examination Constitutional: NAD HEENT: PERRLA, moist MMs Neck: no JVD Respiratory: no wheezing, no rales, clear to auscultation bilateral Cardiovascular: RRR, no significant murmur chest tube in place Gastrointestinal: soft, non-tender, no distention Musculoskeletal: no edema, pulses present Neurological: non-focal, normal sensation Psychiatric: normal affect, A&O x 3 Skin: no rash <Lynne Peck - Last Filed: 02/13/18 07:53> Dx/Plan (1) CAD (coronary artery disease) Code(s): I25.10 - ATHSCL HEART DISEASE OF [place] CORONARY ARTERY W/O ANG PCTRS Status: Acute (2) Acute cystitis Code(s): N30.00 - ACUTE CYSTITIS WITHOUT HEMATURIA Status: Acute (3) Facial laceration Code(s): S01.81XA - LACERATION W/O FOREIGN BODY OF OTH PART OF HEAD, INIT ENCNTR Status: Acute (4) Right wrist injury Code(s): S69.91XA - UNSP INJURY OF RIGHT WRIST, HAND AND FINGER(S), INIT ENCNTR Status: Acute (5) Syncope and collapse Code(s): R55 - SYNCOPE AND COLLAPSE Status: Acute (6) Hypothyroidism Code(s): E03.9 - HYPOTHYROIDISM, UNSPECIFIED Status: Chronic (7) SOLOMON (obstructive sleep apnea) Code(s): G47.33 - OBSTRUCTIVE SLEEP APNEA (ADULT) (PEDIATRIC) Status: Chronic (8) S/P CABG (coronary artery bypass graft) Code(s): Z95.1 - PRESENCE OF AORTOCORONARY BYPASS GRAFT Status: Acute Plan: 3V - Plan Plan: AD s/p CABG on 02/09 - Post-op day #4 - CV surgery consulted; appreciated recs Syncope and collapse - cardiogenic 2/2 CAD; pt had 12 beats of vtach during stress, now s/p CABG Left eyebrow laceration - s/p approximation with dermabond; hemostatic Right wrist injury - s/p fall - Xray right wrist shows some changes that may indicate fracture - Pt placed in wrist splint - Pain control Hypothyroidism - TSH 0.0025; t3 nml, t4 elevated - Decreased dose of levothyroxine SOLOMON - Continue CPAP at night OA - Pain control with home meloxicam dose Acute cystitis- - Continue rocephin CODE STATUS: FULL DVT PPX: CHERYL hosok GI PPX: pantoprazole Dispo: s/p CABG post-op day #4. Will follow CV Surgery recs. <Lynne Peck - Last Filed: 02/13/18 07:53> Attending Addendum - Attending Addendum Date/Time: 02/13/18 0857 I personally evaluated the patient and discussed the management with I agree with the History, Examination, Assessment and Plan documented above with any addition or exceptions noted below. continue amiodarone per cardiology and care. <Edu Navarro - Last Filed: 02/13/18 08:58>
[2018-02-13] MEDS: cefTRIAXone\\ROCEPHIN 1 GM in Sodium Chloride 0.9% 100 ML IVPB SCH (11:00)
[2018-02-13] MEDS: Metoprolol Tartrate 25 MG TAB PO SCH ×2 (11:00→20:14)
[2018-02-13] MEDS: HumaLOG 300 UNITS/3 ML VIAL SC PRN (11:00)
[2018-02-13] MEDS: Amiodarone 200 MG TAB PO SCH ×2 (11:00→20:14)
[2018-02-13] MEDS: Montelukast Sodium 10 mg Tablet PO SCH (11:00)
--- NOTE | 2018-02-13 12:50 | PDOC.CTH ---
Cardiology Progress Note - Subjective A little more SOB today. No other issues. - Objective Vital Signs Temp Pulse Pulse Pulse Resp BP BP 02/13/18 11:18 98.6 F 71 19 02/13/18 09:52 79 71 139/51 L 128/60 02/13/18 07:30 97.5 F L 73 18 02/13/18 07:19 97.5 F L 73 18 02/13/18 03:52 98.0 F 71 20 BP Pulse Ox 02/13/18 11:18 118/52 L 97 02/13/18 09:52 02/13/18 07:30 94 L 02/13/18 07:19 127/52 L 94 L 02/13/18 03:52 109/50 L 96 Weight 219 lb 1.6 oz 02/12/18 02/13/18 02/14/18 06:59 06:59 06:59 Intake Total 1637.8 2039.5 600 Output Total 864 1095 Balance 773.8 944.5 600 - Physical Examination General/Neuro: alert & oriented x3, NAD Lungs: CTA Heart: RRR Abdomen: NT/ND Extremities: + edema B (trace) - Telemetry Telemetry Rhythm: NSR - Labs Result Diagrams: 02/13/18 03:45 02/13/18 03:45 Troponin/CKMB CK-MB (CK-2) 0.8 ng/mL (0-6.6) 02/07/18 09:08 Troponin I Less than 0.010 ng/mL (< 0.028) 02/07/18 15:41 - Assessment/Plan 1. Syncope 2. Severe CAD s/p CABG 3. NSVT PLAN: - Aspirin and statin for life - BB - ACEI when BP alloes - Increase PT as tolerated. - Will start IV lasix for fluid up.
[2018-02-13] MEDS ORDERED: Furosemide 40 MG/4 ML VIAL SLOW IVP SCH (13:00)
[2018-02-13] MEDS: HYDROcodone/Acetaminophen 5/325 mg Tablet PO PRN (13:02)
--- NOTE | 2018-02-13 13:11 | PRG ---
DATE OF SERVICE: 02/13/2018 OBJECTIVE: VITAL SIGNS: Ms. Medeiros is afebrile, heart rate is 71, respiratory rate 19, oximetry is 97 on room a ir, blood pressure 118/52. Intake and output is positive 944. LUNGS: Clear. HEART: Regular rhythm. ABDOMEN: Soft. LABORATORY DATA: White count 9.5, hemoglobin 9.7, 10.5 yesterday, platelets 219,000. Sodium 136, po tassium 3.7, chloride 106, bicarbonate 24, BUN 21, creatinine 0.67. IMPRESSION: 1. Status post coronary artery bypass grafting, clinically doing well. 2. Status post ventricular tachycardia. 3. Status post orbital rim laceration. PLAN: Continue current supportive care. She appears to be progressing nicely.
[2018-02-13] MEDS: Famotidine/PF 20 mg/2ml Vial SLOW IVP SCH ×2 (15:03→20:15)
[2018-02-13] MEDS: Amiodarone HCl 450 MG, Admixture Fee 1 EACH in Dextrose 5% in Water 250 ML IVPB SCH (17:01)
[2018-02-13] MEDS: Atorvastatin Calcium 10 MG TAB PO SCH (20:14)
[2018-02-14 06:22] LABS: #Basophils 0.1 thou/uL (0.0-0.2); #Eosinphils 0.4 thou/uL (0.0-0.7); #Lymphocytes 1.6 thou/uL (1.20-3.40); #Monocytes 0.8 thou/uL (0.11-0.59); #Neutrophils 5.5 thou/uL (1.40-6.50); %Basophils 0.8 % (0.0-1.0); %Eosinophils 4.2 % (0.0-10.0); %Lymphocytes 18.7 % (21.0-51.0); %Neutrophils 66.3 % (42.0-75.0); Hemoglobin 9.9 g/dL (12.0-16.0); Mean Corpuscular HGB CONC 34.3 g/dL (32.0-36.0); Mean Corpuscular Hemoglobin 31.6 pg (27.0-31.0); Mean Corpuscular Volume 92.3 fl (81.0-99.0); Mean Platelet Volume 7.9 fL (7.4-10.4); Platelet Count 277 thou/uL (130-400); Red Blood Cell (RBC) Count 3.14 mill/uL (4.20-5.40); White Blood Cell (WBC) Count 8.4 thou/uL (4.8-10.8)
[2018-02-14 06:33] LABS: Anion Gap 13 mmol/L (10-20); BUN (Urea Nitrogen) 14 mg/dL (9.8-20.1); Calc. Creatinine Clearance 121 mL/min (70-130); Calcium 8.6 mg/dL (7.8-10.44); Carbon Dioxide 27 mmol/L (23-31); Chloride 104 mmol/L (98-107); Estimated GFR-MDRD Greater than 90; Glucose 127 mg/dL (83-110); Potassium 3.6 mmol/L (3.5-5.1); Sodium 140 mmol/L (136-145)
--- NOTE | 2018-02-14 07:51 | PDOC.CTH ---
Cardiology Progress Note - Subjective PT wtihouts today. She did develop post op afib over weekend but is now in SR. Was placed on IV amiodarone and now on PO. - Objective Vital Signs Temp Pulse Resp BP Pulse Ox 02/14/18 07:32 98.4 F 69 17 95 02/14/18 07:27 98.4 F 69 17 127/59 L 95 02/14/18 04:00 97.5 F L 85 16 118/53 L 97 02/14/18 00:00 97.6 F 107 H 18 123/72 97 02/13/18 20:00 97.4 F L 121 H 18 129/104 H 98 Weight 219 lb 3.2 oz 02/13/18 02/14/18 02/15/18 06:59 06:59 06:59 Intake Total 2039.5 1777.3 Output Total 1095 1750 Balance 944.5 27.3 - Physical Examination General/Neuro: alert & oriented x3, NAD Neck: carotid US brisk, no JVD present Lungs: CTA Heart: PMI normal, RRR Abdomen: no HSM, NT/ND, soft Extremities: + femoral B - Labs Result Diagrams: 02/14/18 06:14 02/14/18 06:14 Troponin/CKMB CK-MB (CK-2) 0.8 ng/mL (0-6.6) 02/07/18 09:08 Troponin I Less than 0.010 ng/mL (< 0.028) 02/07/18 15:41 - Assessment/Plan 1. Syncope 2. Severe CAD s/p CABG 3. NSVT 4. Postop afib Doing well. Continue with po amiodaonre for 1 month only then dc. On BB, statin treatment. IS and cardiac rehab
[2018-02-14] MEDS: cefTRIAXone\\ROCEPHIN 1 GM in Sodium Chloride 0.9% 100 ML IVPB SCH (08:57)
[2018-02-14] MEDS: Amiodarone 200 MG TAB PO SCH ×2 (08:57→21:33)
[2018-02-14] MEDS: Montelukast Sodium 10 mg Tablet PO SCH (08:58)
[2018-02-14] MEDS: Metoprolol Tartrate 25 MG TAB PO SCH ×2 (08:58→21:33)
[2018-02-14] MEDS: Furosemide 40 MG/4 ML VIAL SLOW IVP SCH (08:58)
[2018-02-14] MEDS: Famotidine/PF 20 mg/2ml Vial SLOW IVP SCH ×2 (08:58→21:33)
[2018-02-14] MEDS ORDERED: Potassium Chloride 20 MEQ TAB PO SCH (09:15)
--- NOTE | 2018-02-14 09:28 | PRG ---
DATE OF SERVICE: 02/14/2018 SERVICE: Pulmonary Medicine. INTERVAL HISTORY: The patient is doing fine from a cardiovascular and respiratory standpoint. She d enies any chest pain, nausea, vomiting, fevers or chills. No syncopal events occurred. No events on telemetry were noted overnight. PHYSICAL EXAMINATION: VITAL SIGNS: Afebrile, pulse 69, blood pressure 127/59, respirations 17, saturation 95% on room air. GENERAL: The patient is awake, alert, no apparent distress. LUNGS: Excellent air entry. There is no prolonged expiratory phase or wheezing present. No crackle s. HEART: Normal rate and regular. ABDOMEN: Soft, nontender, and nondistended. Bowel sounds are positive. MUSCULOSKELETAL: No cyanosis or clubbing. No pitting in the bilateral lower extremities. NEUROLOGIC: Grossly nonfocal. LABORATORY DATA: WBC 8.4, hemoglobin 9.9, and platelets 277,000. Basic metabolic profile is essenti ally unremarkable. Potassium 3.6. E. coli is growing in the urine, which is sensitive to third gene ration cephalosporins. IMAGING DATA: Echocardiogram demonstrates 55%-60% ejection fraction with diastolic dysfunction and l ittle mitral regurgitation. ASSESSMENT: 1. Acute hypoxic respiratory failure. 2. Coronary artery disease, postoperative day #4. 3. Coronary artery bypass graft x3 vessels. 4. Hypothyroidism. 5. Urinary tract infection secondary to Escherichia coli. DISCUSSION AND PLAN: We will continue supportive care. We will continue her mobilization efforts. I will give a dose of potassium today. Pulmonary or Critical Care will continue to follow along.
[2018-02-14] MEDS: Amiodarone HCl 450 MG, Admixture Fee 1 EACH in Dextrose 5% in Water 250 ML IVPB SCH (09:50)
--- NOTE | 2018-02-14 11:20 | PDOC.FM ---
- Subjective Subjective: No acute events overnight. Ambulating with assist daily. Tolerating a normal diet. Passing flatus and had a bowel movement. - Objective Vital Signs & Weight: Vital Signs (12 hours) Temp Pulse Pulse Pulse Resp BP BP 02/14/18 11:03 97.4 F L 65 18 02/14/18 09:40 112 H 82 135/86 141/64 H 02/14/18 07:32 98.4 F 69 17 02/14/18 07:27 98.4 F 69 17 02/14/18 04:00 97.5 F L 85 16 02/14/18 00:00 97.6 F 107 H 18 BP Pulse Ox Pulse Ox Pulse Ox 02/14/18 11:03 116/71 97 02/14/18 09:40 98 96 02/14/18 07:32 95 02/14/18 07:27 127/59 L 95 02/14/18 04:00 118/53 L 97 02/14/18 00:00 123/72 97 Weight Weight 99.427 kg Most Recent Monitor Data Heart Rate from ECG 76 NIBP 102/43 NIBP BP-Mean 79 Respiration from ECG 24 SpO2 97 I&O: 02/13/18 02/14/18 02/15/18 06:59 06:59 06:59 Intake Total 2039.5 1777.3 Output Total 1095 1750 Balance 944.5 27.3 Result Diagrams: 02/14/18 06:14 02/14/18 06:14 <Lynne Peck - Last Filed: 02/14/18 11:09> - Objective Vital Signs & Weight: Vital Signs (12 hours) Temp Pulse Pulse Pulse Resp BP BP 02/14/18 15:18 97.7 F 59 L 18 02/14/18 13:26 65 02/14/18 13:04 69 67 151/66 H 145/58 H 02/14/18 11:03 97.4 F L 65 18 02/14/18 09:40 112 H 82 135/86 141/64 H 02/14/18 07:32 98.4 F 69 17 02/14/18 07:27 98.4 F 69 17 BP Pulse Ox Pulse Ox Pulse Ox 02/14/18 15:18 102/56 L 96 02/14/18 13:26 02/14/18 13:04 99 99 02/14/18 11:03 116/71 97 02/14/18 09:40 98 96 02/14/18 07:32 95 02/14/18 07:27 127/59 L 95 Weight Weight 99.427 kg Most Recent Monitor Data Heart Rate from ECG 76 NIBP 102/43 NIBP BP-Mean 79 Respiration from ECG 24 SpO2 97 I&O: 02/13/18 02/14/18 02/15/18 06:59 06:59 06:59 Intake Total 2039.5 1777.3 1746 Output Total 1095 1750 600 Balance 944.5 27.3 1146 Result Diagrams: 02/14/18 06:14 02/14/18 06:14 <Ruba Dee - Last Filed: 02/14/18 19:26> Phys Exam - Physical Examination Constitutional: NAD HEENT: PERRLA, moist MMs Respiratory: no wheezing, no rales, clear to auscultation bilateral Cardiovascular: RRR, no significant murmur Gastrointestinal: soft, non-tender, no distention Musculoskeletal: no edema, pulses present Neurological: non-focal Psychiatric: normal affect, A&O x 3 Skin: no rash <Lynne Peck - Last Filed: 02/14/18 11:09> Dx/Plan (1) CAD (coronary artery disease) Code(s): I25.10 - ATHSCL HEART DISEASE OF [place] CORONARY ARTERY W/O ANG PCTRS Status: Acute (2) Acute cystitis Code(s): N30.00 - ACUTE CYSTITIS WITHOUT HEMATURIA Status: Acute (3) Facial laceration Code(s): S01.81XA - LACERATION W/O FOREIGN BODY OF OTH PART OF HEAD, INIT ENCNTR Status: Acute (4) Right wrist injury Code(s): S69.91XA - UNSP INJURY OF RIGHT WRIST, HAND AND FINGER(S), INIT ENCNTR Status: Acute (5) Syncope and collapse Code(s): R55 - SYNCOPE AND COLLAPSE Status: Acute (6) Hypothyroidism Code(s): E03.9 - HYPOTHYROIDISM, UNSPECIFIED Status: Chronic (7) SOLOMON (obstructive sleep apnea) Code(s): G47.33 - OBSTRUCTIVE SLEEP APNEA (ADULT) (PEDIATRIC) Status: Chronic (8) S/P CABG (coronary artery bypass graft) Code(s): Z95.1 - PRESENCE OF AORTOCORONARY BYPASS GRAFT Status: Acute Plan: 3V - Plan Plan: CAD s/p CABG on 02/09 - Post-op day #5 - CV surgery consulted; appreciated recs - chest tube pulled yesterday Afib with RVR- -Pt placed on amiodarone drip, cv surg recommends adding digoxin and to increase lopressor -appreciate recommendations Syncope and collapse - cardiogenic 2/2 CAD; pt had 12 beats of vtach during stress, now s/p CABG Left eyebrow laceration - s/p approximation with dermabond; hemostatic Right wrist injury - s/p fall - Xray right wrist shows some changes that may indicate fracture - Pt placed in wrist splint - Pain control Hypothyroidism - TSH 0.0025; t3 nml, t4 elevated - Decreased dose of levothyroxine SOLOMON - Continue CPAP at night OA - Pain control with home meloxicam dose Acute cystitis- - Continue rocephin CODE STATUS: FULL DVT PPX: CHERYL hose GI PPX: pantoprazole Dispo: s/p CABG post-op day #5. Will follow CV Surgery recs. <Lynne Peck - Last Filed: 02/14/18 11:09> Attending Addendum - Attending Addendum Date/Time: 02/14/181924 I personally evaluated the patient and discussed the management with Dr. Peck. I agree with the History, Examination, Assessment and Plan documented above with any addition or exceptions noted below. Patient is doing well following surgery. On amiodarone. She is ambulating with Pt. Following surgery recs. <Ruba Dee - Last Filed: 02/14/18 19:26>
[2018-02-14] MEDS: Digoxin 0.5 MG/2 ML AMP SLOW IVP SCH ×2 (13:26→22:39)
[2018-02-14] MEDS: HYDROcodone/Acetaminophen 5/325 mg Tablet PO PRN (13:26)
--- NOTE | 2018-02-14 17:09 | PQF ---
CLINICAL DOCUMENTATION IMPROVEMENT CLARIFICATION FORM: ICD-10 Updated PLEASE DO AN ADDENDUM TO THE PROGRESS NOTE WITH ANY DOCUMENTATION UPDATES OR ADDITIONS AND CARRY THROUGH TO DC SUMMARY. THANK YOU. DATE: 02/14/18 ATTN: Dr. Celis Please exercise your independent, professional judgment in responding to the clarification form. Clinical indicators are provided on the bottom of this form for your review Please check appropriate box(s): [ ] Paroxysmal Atrial Fibrillation [ ] Persistent Atrial Fibrillation [ ] Atrial fib/Atrial flutter [ ] Post-Operative Complication - Atrial Fibrillation [x ] Paroxysmal Atrial Fibrillation [ ] Persistent Atrial Fibrillation [ ] Other Diagnosis [ ] Unable to Determine In addition, please specify: Present on Admission (POA): [ ] Yes [ ] No [ ] Unable to determine For continuity of documentation, please document condition throughout progress notes and discharge summary. Thank You. CLINICAL INDICATORS - SIGNS / SYMPTOMS / LABS / TCV POD 2: WENT INTO A FIB WITH RATES> 150 W/ GOOD BP-- CONVERTED AFTER 3.5 MG IV LOPRESSOR, 0.25 MG IV DIGOXIN, IV AMIODERONE. 02/14: TCV POD 4: WENT BACK INTO A FIB YESTERDAY AFTERNOON & CONVERTED BACK TO NSR EARLY THIS AM WITH IV AMIO CARDIOLOGY PN 02/14: POSTOP A FIB RISKS: OP NOTE: 02/10 CABG X3 TREATMENT: CPOE 02/14: DIGOXIN 0.25 MG SLOW IVP Q 8 HR. 4 DOSES CPOE 02/14: LANOXIN 0.125 MG PO DAILY (This form is maintained as a part of the permanent medical record) 2014 [employer]. All Rights Reserved Mari Escalante RN, BSN [email or web address] Office: [phone] [facility]
[2018-02-14] MEDS: Atorvastatin Calcium 10 MG TAB PO SCH (21:33)
[2018-02-15 05:08] LABS: #Basophils 0.1 thou/uL (0.0-0.2); #Eosinphils 0.4 thou/uL (0.0-0.7); #Lymphocytes 1.5 thou/uL (1.20-3.40); #Monocytes 0.7 thou/uL (0.11-0.59); #Neutrophils 4.6 thou/uL (1.40-6.50); %Basophils 1.1 % (0.0-1.0); %Eosinophils 4.9 % (0.0-10.0); %Lymphocytes 20.3 % (21.0-51.0); %Monocytes 10.2 % (0.0-10.0); %Neutrophils 63.5 % (42.0-75.0); Hemoglobin 10.3 g/dL (12.0-16.0); Mean Corpuscular HGB CONC 34.3 g/dL (32.0-36.0); Mean Corpuscular Volume 93.4 fl (81.0-99.0); Mean Platelet Volume 7.7 fL (7.4-10.4); Platelet Count 315 thou/uL (130-400); RBC Distribution Width 11.7 % (11.5-14.5); White Blood Cell (WBC) Count 7.2 thou/uL (4.8-10.8)
[2018-02-15 05:31] LABS: Anion Gap 8 mmol/L (10-20); BUN (Urea Nitrogen) 11 mg/dL (9.8-20.1); Calc. Creatinine Clearance 123 mL/min (70-130); Calcium 8.7 mg/dL (7.8-10.44); Carbon Dioxide 30 mmol/L (23-31); Chloride 104 mmol/L (98-107); Estimated GFR-MDRD Greater than 90; Glucose 112 mg/dL (83-110); Potassium 3.9 mmol/L (3.5-5.1); Sodium 138 mmol/L (136-145)
[2018-02-15] MEDS: HYDROcodone/Acetaminophen 5/325 mg Tablet PO PRN ×2 (05:53→18:16)
[2018-02-15] MEDS: Digoxin 0.5 MG/2 ML AMP SLOW IVP SCH ×2 (05:54→14:07)
--- NOTE | 2018-02-15 06:48 | PDOC.FM ---
- Subjective Subjective: No acute events overnight. Amiodarone drip weaned off and pt on po amiodarone. Walking on her own. Doing well. - Objective MAR Reviewed: Yes Vital Signs & Weight: Vital Signs (12 hours) Temp Pulse Resp BP BP Pulse Ox 02/15/18 05:54 67 02/15/18 04:05 98.9 F 66 16 142/83 H 95 02/14/18 22:39 64 02/14/18 20:30 98.2 F 64 18 152/70 H 100 02/14/18 19:35 67 18 141/57 H 99 Weight Weight 96.388 kg Most Recent Monitor Data Heart Rate from ECG 76 NIBP 102/43 NIBP BP-Mean 79 Respiration from ECG 24 SpO2 97 I&O: 02/13/18 02/14/18 02/15/18 06:59 06:59 06:59 Intake Total 2039.5 1777.3 2046 Output Total 1095 1750 1700 Balance 944.5 27.3 346 Result Diagrams: 02/15/18 04:45 02/15/18 04:45 <Lynne Peck - Last Filed: 02/15/18 09:10> - Objective Vital Signs & Weight: Vital Signs (12 hours) Temp Pulse Pulse Pulse Resp BP BP 02/15/18 14:07 64 02/15/18 12:35 98.2 F 64 16 02/15/18 08:42 88 71 157/69 H 154/67 H 02/15/18 08:15 97.7 F 69 17 02/15/18 05:54 67 02/15/18 04:05 98.9 F 66 16 BP BP Pulse Ox Pulse Ox Pulse Ox 02/15/18 14:07 02/15/18 12:35 145/67 H 96 02/15/18 08:42 93 L 97 02/15/18 08:15 149/67 H 96 02/15/18 05:54 02/15/18 04:05 142/83 H 95 Weight Weight 96.388 kg Most Recent Monitor Data Heart Rate from ECG 76 NIBP 102/43 NIBP BP-Mean 79 Respiration from ECG 24 SpO2 97 I&O: 02/14/18 02/15/18 02/16/18 06:59 06:59 06:59 Intake Total 1777.3 2046 240 Output Total 1750 1700 Balance 27.3 346 240 Result Diagrams: 02/15/18 04:45 02/15/18 04:45 <Ruba Dee - Last Filed: 02/15/18 14:32> Phys Exam - Physical Examination Constitutional: NAD HEENT: PERRLA, moist MMs Neck: no JVD Respiratory: no wheezing, no rales, no rhonchi, clear to auscultation bilateral Cardiovascular: RRR, no significant murmur Gastrointestinal: soft, non-tender, no distention Musculoskeletal: no edema, pulses present Neurological: non-focal, normal sensation Psychiatric: normal affect, A&O x 3 Skin: no rash, normal turgor, cap refill <2 seconds <Lynne Peck - Last Filed: 02/15/18 09:10> Dx/Plan (1) CAD (coronary artery disease) Code(s): I25.10 - ATHSCL HEART DISEASE OF [place] CORONARY ARTERY W/O ANG PCTRS Status: Acute (2) Acute cystitis Code(s): N30.00 - ACUTE CYSTITIS WITHOUT HEMATURIA Status: Acute (3) Facial laceration Code(s): S01.81XA - LACERATION W/O FOREIGN BODY OF OTH PART OF HEAD, INIT ENCNTR Status: Acute (4) Right wrist injury Code(s): S69.91XA - UNSP INJURY OF RIGHT WRIST, HAND AND FINGER(S), INIT ENCNTR Status: Acute (5) Syncope and collapse Code(s): R55 - SYNCOPE AND COLLAPSE Status: Acute (6) Hypothyroidism Code(s): E03.9 - HYPOTHYROIDISM, UNSPECIFIED Status: Chronic (7) SOLOMON (obstructive sleep apnea) Code(s): G47.33 - OBSTRUCTIVE SLEEP APNEA (ADULT) (PEDIATRIC) Status: Chronic (8) S/P CABG (coronary artery bypass graft) Code(s): Z95.1 - PRESENCE OF AORTOCORONARY BYPASS GRAFT Status: Acute Plan: 3V - Plan Plan: 78 yo f with recent syncope episodes now s/p CABG, post op day 6. CAD s/p CABG on 02/09 - Post-op day #6 - CV surgery consulted; appreciated recs - transferred to [facility] with RVR- -amiodarone drip weaned off; she is now on PO amiodarone and lopressor continued \ -appreciate cardiology recs Syncope and collapse - cardiogenic 2/2 CAD; pt had 12 beats of vtach during stress, now s/p CABG Left eyebrow laceration, improved - s/p approximation with dermabond; hemostatic Right wrist injury, improved - s/p fall - Xray right wrist shows some changes that may indicate fracture - Pt placed in wrist splint - Pain control Hypothyroidism - continue levothyroxine SOLOMON - Continue CPAP at night OA - Pain control with home meloxicam dose Acute cystitis- - dc rocephin today; pt has had 5 days of treatment. CODE STATUS: FULL DVT PPX: CHERYL hose GI PPX: pantoprazole <Lynne Peck - Last Filed: 02/15/18 09:10> Attending Addendum - Attending Addendum Date/Time: 02/15/18 1431 I personally evaluated the patient and discussed the management with Dr. Peck. I agree with the History, Examination, Assessment and Plan documented above with any addition or exceptions noted below. The patient is doing well. Will f/u with CV surg recs for patient upon discharge. <Ruba Dee - Last Filed: 02/15/18 14:32>
--- NOTE | 2018-02-15 08:20 | PDOC.CTH ---
Cardiology Progress Note - Subjective Doing well. Seen sitting up. In SR currently on PO amiodarone - Objective Vital Signs Temp Pulse Resp BP Pulse Ox 02/15/18 05:54 67 02/15/18 04:05 98.9 F 66 16 142/83 H 95 02/14/18 22:39 64 02/14/18 20:30 98.2 F 64 18 152/70 H 100 Weight 212 lb 8 oz 02/14/18 02/15/18 02/16/18 06:59 06:59 06:59 Intake Total 1777.3 2046 Output Total 1750 1700 Balance 27.3 346 - Physical Examination General/Neuro: alert & oriented x3, NAD Neck: no JVD present Lungs: other: (decreased BS bilaterally) Heart: PMI normal Abdomen: no HSM, soft Extremities: + femoral B - Labs Result Diagrams: 02/15/18 04:45 02/15/18 04:45 Troponin/CKMB CK-MB (CK-2) 0.8 ng/mL (0-6.6) 02/07/18 09:08 Troponin I Less than 0.010 ng/mL (< 0.028) 02/07/18 15:41 - Assessment/Plan 1. Syncope 2. Severe CAD s/p CABG 3. NSVT 4. Postop afib Improving CXR stable on 02/12 Ambulate and IS Increase statin to moderate dosing per capri (40mg QHS) home soon Continue amiodarone for one month only
[2018-02-15] MEDS ORDERED: cefTRIAXone\\ROCEPHIN 1 GM in Sodium Chloride 0.9% 100 ML IVPB SCH (09:00)
[2018-02-15] MEDS ORDERED: Digoxin 0.125 MG TAB PO SCH (09:00)
[2018-02-15] MEDS: Montelukast Sodium 10 mg Tablet PO SCH (09:00)
[2018-02-15] MEDS: Amiodarone 200 MG TAB PO SCH ×2 (09:00→22:48)
[2018-02-15] MEDS: Furosemide 40 MG/4 ML VIAL SLOW IVP SCH (09:00)
[2018-02-15] MEDS: Metoprolol Tartrate 25 MG TAB PO SCH ×2 (10:08→22:48)
[2018-02-15] MEDS: Famotidine 20 MG TAB PO SCH ×2 (10:09→22:48)
[2018-02-15] MEDS: Famotidine/PF 20 mg/2ml Vial SLOW IVP SCH (10:11)
--- NOTE | 2018-02-15 14:14 | PRG ---
DATE OF SERVICE 02/15/2018 SERVICE: Pulmonary Medicine. INTERVAL HISTORY: The patient is doing great from a respiratory standpoint. She is breathing comfor tably. She is on room air. She denies any shortness of breath, fevers, chills, nausea or vomiting. She is able to get up and walk. Her strength is low, but improving. She did not have any dyspnea o r chest pain that limited her activity. When she coughs or takes a deep breath, she does have some a ppropriate chest discomfort. PHYSICAL EXAMINATION: VITAL SIGNS: Afebrile, pulse 64, blood pressure 145/67, respirations 16, saturation 96% on room air. GENERAL: The patient is awake, alert, in no apparent distress. LUNGS: Excellent air entry with no prolonged expiratory phase, wheezing, rhonchi or crackles. HEART: Normal rate and regular. ABDOMEN: Soft, nontender, nondistended. Bowel sounds are positive. MUSCULOSKELETAL: No cyanosis or clubbing. No pitting in the bilateral lower extremities. NEUROLOGIC: Grossly nonfocal. LABORATORY DATA: WBC 7.2, hemoglobin 10.3, platelets 315,000. Basic metabolic profile is essentiall y unremarkable. ASSESSMENT: 1. Acute hypoxic respiratory failure, resolved. 2. Coronary artery disease, status post coronary bypass graft x3 vessel, postop day number 5. 3. Hypothyroidism. 4. Urinary tract infection secondary to Escherichia coli. DISCUSSION AND PLAN: At this point, the patient has no further requirements for inpatient Pulmonary or Critical Care opinion. As such, I will sign off. Please call with additional questions or concer ns moving forward.
--- NOTE | 2018-02-15 17:56 | EKG ---
Test Reason : POST CABG Blood Pressure : / mmHG Vent. Rate : 067 BPM Atrial Rate : 067 BPM P-R Int : 098 ms QRS Dur : 084 ms QT Int : 436 ms P-R-T Axes : 042 -09 024 degrees QTc Int : 460 ms Sinus rhythm with short IL Otherwise normal ECG When compared with ECG of 07-FEB-2018 08:47, (Unconfirmed) ST no longer depressed in Inferior leads ST no longer depressed in Lateral leads Confirmed by Maggy HEWITT ([id number]) on 02/15/2018 5:56:33 PM Referred By: ISAURA Confirmed By:Maggy HEWITT
--- NOTE | 2018-02-15 18:27 | EKG ---
Test Reason : Blood Pressure : / mmHG Vent. Rate : 123 BPM Atrial Rate : 163 BPM P-R Int : 000 ms QRS Dur : 080 ms QT Int : 320 ms P-R-T Axes : 000 011 047 degrees QTc Int : 458 ms Atrial fibrillation with rapid ventricular response Abnormal ECG When compared with ECG of 10-FEB-2018 13:56, (Unconfirmed) Atrial fibrillation has replaced Sinus rhythm Vent. rate has increased BY 56 BPM Confirmed by Maggy HEWITT ([id number]) on 02/15/2018 6:26:34 PM Referred By: TATIANA Confirmed By:Maggy HEWITT
[2018-02-15] MEDS ORDERED: Atorvastatin Calcium 40 MG TAB PO SCH (21:00)
[2018-02-16 04:25] LABS: #Basophils 0.1 thou/uL (0.0-0.2); #Eosinphils 0.4 thou/uL (0.0-0.7); #Lymphocytes 1.7 thou/uL (1.20-3.40); #Monocytes 0.8 thou/uL (0.11-0.59); #Neutrophils 4.9 thou/uL (1.40-6.50); %Basophils 0.6 % (0.0-1.0); %Eosinophils 5.3 % (0.0-10.0); %Lymphocytes 21.3 % (21.0-51.0); %Monocytes 10.6 % (0.0-10.0); %Neutrophils 62.1 % (42.0-75.0); Hemoglobin 10.6 g/dL (12.0-16.0); Mean Corpuscular HGB CONC 34.2 g/dL (32.0-36.0); Mean Corpuscular Hemoglobin 31.3 pg (27.0-31.0); Mean Corpuscular Volume 91.4 fl (81.0-99.0); Mean Platelet Volume 7.2 fL (7.4-10.4); Platelet Count 327 thou/uL (130-400); Red Blood Cell (RBC) Count 3.38 mill/uL (4.20-5.40); White Blood Cell (WBC) Count 7.8 thou/uL (4.8-10.8)
[2018-02-16 04:51] LABS: Anion Gap 11 mmol/L (10-20); BUN (Urea Nitrogen) 10 mg/dL (9.8-20.1); Calc. Creatinine Clearance 118 mL/min (70-130); Calcium 8.7 mg/dL (7.8-10.44); Carbon Dioxide 28 mmol/L (23-31); Chloride 102 mmol/L (98-107); Estimated GFR-MDRD Greater than 90; Glucose 95 mg/dL (83-110); Potassium 3.8 mmol/L (3.5-5.1); Sodium 137 mmol/L (136-145)
--- NOTE | 2018-02-16 07:51 | DIS ---
DATE OF DISCHARGE: 02/16/2018 PRINCIPAL DIAGNOSIS: Coronary artery disease. SECONDARY DIAGNOSES: 1. Syncope. 2. Facial laceration. 3. Ventricular tachycardia. 4. Atrial fibrillation. Secondary diagnoses present, but not specifically addressed, hypothyroidism, obstructive sleep apnea, and osteoarthritis. PROCEDURES PERFORMED: Cardiac catheterization 02/09/2018, coronary artery bypass grafting x3 with le ft internal mammary artery to the LAD and reverse greater saphenous vein graft from the aorta to PDA and the obtuse marginal on 02/10/2018. HISTORY OF PRESENT ILLNESS/HOSPITAL COURSE: The patient is a 78-year-old woman with minimal past med ical history. She had a syncopal episode with no prodromal symptoms, striking her forehead and suffe ring a small laceration above her left eyebrow. She was evaluated in the emergency room. She had mario d a similar episode a couple of months previously that did not result in injury or concern significan t enough to seek medical attention, although her heart rates at that time were in the 50s and 60s. S he had normal to high blood pressures, but while on telemetry she had a 10 beat run of ventricular ta chycardia prompting invasive cardiac evaluation with catheterization rather than noninvasive with str ess testing. Catheterization demonstrated findings consistent with an ostial right coronary lesion, proximal LAD lesion and a very high grade ostial lesion and a large obtuse marginal. She underwent c oronary revascularization. She was extubated the day of surgery, she developed atrial fibrillation w ith rapid ventricular response, but adequate blood pressure. She initially converted fairly easily, but had recurrence of her atrial fibrillation after switching her from IV amiodarone to oral amiodaro ne. Her Lopressor dose was increased and digoxin added and she remained in sinus rhythm for the gregorio miki of her hospital stay. She had had a urinalysis suspicious for a urinary tract infection at the time of admission and a culture sent on a urine collected after placing her [facility] at the time of [facility] grew an E. coli with multiple resistances. She was treated with IV Rocephin during the course o f her postop stay to which the E. coli was sensitive. She is now being discharged home with a prescription for Vicodin as needed for pain. She is to compl ete a month of amiodarone 200 mg b.i.d. and I will have her on Lopressor 25 mg p.o. b.i.d. She is al so on a baby aspirin, Lipitor 40 mg at bedtime, and she is to resume her home medications.
--- NOTE | 2018-02-16 08:26 | PDOC.FM ---
- Subjective Subjective: No acute events overnight. Discharged this am by CV surg. She is pending placement at the [place]. - Objective MAR Reviewed: Yes Vital Signs & Weight: Vital Signs (12 hours) Temp Pulse Resp BP Pulse Ox 02/16/18 04:00 98.2 F 63 18 140/68 95 Weight Weight 96.388 kg Most Recent Monitor Data Heart Rate from ECG 76 NIBP 102/43 NIBP BP-Mean 79 Respiration from ECG 24 SpO2 97 I&O: 02/15/18 02/16/18 02/17/18 06:59 06:59 06:59 Intake Total 2046 2160 Output Total 1700 1200 Balance 346 960 Result Diagrams: 02/16/18 03:54 02/16/18 03:54 <Lynne Peck - Last Filed: 02/16/18 11:57> - Objective Vital Signs & Weight: Vital Signs (12 hours) Temp Pulse Pulse Pulse Resp BP BP 02/16/18 11:35 98.3 F 64 17 02/16/18 11:05 68 64 162/70 H 132/63 BP Pulse Ox Pulse Ox 02/16/18 11:35 130/78 97 02/16/18 11:05 94 L Weight Weight 96.388 kg Most Recent Monitor Data Heart Rate from ECG 76 NIBP 102/43 NIBP BP-Mean 79 Respiration from ECG 24 SpO2 97 I&O: 02/15/18 02/16/18 02/17/18 06:59 06:59 06:59 Intake Total 2046 2160 Output Total 1700 1200 Balance 346 960 Result Diagrams: 02/16/18 03:54 02/16/18 03:54 <Ruba Dee - Last Filed: 02/16/18 20:43> Phys Exam - Physical Examination Constitutional: NAD HEENT: moist MMs no increased work of breathing NSR Neurological: moves all 4 limbs gait wnl, slow Psychiatric: normal affect, A&O x 3 <Lynne Peck - Last Filed: 02/16/18 11:57> Dx/Plan (1) CAD (coronary artery disease) Code(s): I25.10 - ATHSCL HEART DISEASE OF [place] CORONARY ARTERY W/O ANG PCTRS Status: Acute (2) Acute cystitis Code(s): N30.00 - ACUTE CYSTITIS WITHOUT HEMATURIA Status: Acute (3) Facial laceration Code(s): S01.81XA - LACERATION W/O FOREIGN BODY OF OTH PART OF HEAD, INIT ENCNTR Status: Acute (4) Right wrist injury Code(s): S69.91XA - UNSP INJURY OF RIGHT WRIST, HAND AND FINGER(S), INIT ENCNTR Status: Acute (5) Syncope and collapse Code(s): R55 - SYNCOPE AND COLLAPSE Status: Acute (6) Hypothyroidism Code(s): E03.9 - HYPOTHYROIDISM, UNSPECIFIED Status: Chronic (7) SOLOMON (obstructive sleep apnea) Code(s): G47.33 - OBSTRUCTIVE SLEEP APNEA (ADULT) (PEDIATRIC) Status: Chronic (8) S/P CABG (coronary artery bypass graft) Code(s): Z95.1 - PRESENCE OF AORTOCORONARY BYPASS GRAFT Status: Acute Plan: 3V - Plan Plan: 78 yo f with recent syncope episodes now s/p CABG, post op day 6. CAD s/p CABG on 02/09 - Post-op day #7 - CV surgery consulted; appreciated recs - dc this am - pending placement at the [place] Afib with RVR- -she is now on PO amiodarone and lopressor continued -appreciate cardiology recs Syncope and collapse - cardiogenic 2/2 CAD; pt had 12 beats of vtach during stress, now s/p CABG Left eyebrow laceration, improved - s/p approximation with dermabond; hemostatic Right wrist injury, improved - s/p fall - Xray right wrist shows some changes that may indicate fracture - Pt placed in wrist splint - Pain control Hypothyroidism - continue levothyroxine SOLOMON - Continue CPAP at night OA - Pain control with home meloxicam dose Acute cystitis- - dc rocephin today; pt has had 5 days of treatment. CODE STATUS: FULL DVT PPX: CHERYL hose GI PPX: pantoprazole Dispo: dc'd, pending placement at the [place] <Lynne Peck - Last Filed: 02/16/18 11:57> Attending Addendum - Attending Addendum Date/Time: 02/16/182042 I personally evaluated the patient and discussed the management with Dr. Peck. I agree with the History, Examination, Assessment and Plan documented above with any addition or exceptions noted below. Patient is cleared for discharge by CV surg once placement is found. <Ruba Dee - Last Filed: 02/16/18 20:43>
[2018-02-16] MEDS: Famotidine 20 MG TAB PO SCH (09:03)
[2018-02-16] MEDS: Montelukast Sodium 10 mg Tablet PO SCH (09:03)
[2018-02-16] MEDS: Furosemide 40 MG/4 ML VIAL SLOW IVP SCH (09:04)
[2018-02-16] MEDS: Amiodarone 200 MG TAB PO SCH (09:04)
[2018-02-16] MEDS: Metoprolol Tartrate 25 MG TAB PO SCH (09:04)
[2018-02-16 11:36] VITALS: TEMP 98.3
[2018-02-16 12:07] VITALS: BP 162/70
--- NOTE | 2018-02-16 23:03 | PDOC.CTH ---
Cardiology Progress Note - Subjective Patient without complaint. Discharged earlier today by [facility] and awaiting placement. - Objective Vital Signs Temp Pulse Pulse Pulse Resp BP BP 02/16/18 11:35 98.3 F 64 17 02/16/18 11:05 68 64 162/70 H 132/63 BP Pulse Ox Pulse Ox 02/16/18 11:35 130/78 97 02/16/18 11:05 94 L Weight 212 lb 8 oz 02/15/18 02/16/18 02/17/18 06:59 06:59 06:59 Intake Total 2046 2160 Output Total 1700 1200 Balance 346 960 - Physical Examination General/Neuro: alert & oriented x3, NAD Neck: no JVD present Lungs: CTA Heart: RRR Abdomen: NT/ND Extremities: other: (no edema) Other PE findings: healing bruises to face. Sternal wound healing without drainage on incision - Labs Result Diagrams: 02/16/18 03:54 02/16/18 03:54 Troponin/CKMB CK-MB (CK-2) 0.8 ng/mL (0-6.6) 02/07/18 09:08 Troponin I Less than 0.010 ng/mL (< 0.028) 02/07/18 15:41 - Assessment/Plan 1. Syncope 2. CAD s/p CABG 3. NSVT (prior to CABG without recurrance) 4. Post-Op AFib - on Amio and in NSR Overall stable. Doing well without recent arrhythmias. Plan for d/c today to rehab. F/U in one month as outpatient.
[2018-02-22 13:19] LABS: pH, Arterial 7.48 (7.35-7.45)
[2018-02-22 13:20] LABS: Actual Bicarbonate (HCO3a) 22.6 mEq/L (22-28); Analyzer IN Cardio OR; Base Excess (BEa) -0.2 mEq/L (-2.0 to +3.0); CO2 Tension 31.3 mmHg (35.0-45.0); Calcium, Ionized 1.2 mmol/L (1.12-1.30); Hematocrit-ABG 33.5 % (36.0-47.0); Hemoglobin (Hb) 11.7 g/dL (12.0-16.0); Potassium - ABG Lab 3.1 mmol/L (3.70-5.30); Puncture Site ALINE
[2018-02-22 13:21] LABS: Actual Bicarbonate (HCO3a) 23.2 mEq/L (22-28); Analyzer IN Cardio OR; Base Excess (BEa) 0.7 mEq/L (-2.0 to +3.0); CO2 Tension 31.4 mmHg (35.0-45.0); Calcium, Ionized 1.1 mmol/L (1.12-1.30); Hematocrit-ABG 32.6 % (36.0-47.0); O2 Tension (PaO2) 411.7 mmHg (> 70.0); Potassium - ABG Lab 3.1 mmol/L (3.70-5.30); pH, Arterial 7.49 (7.35-7.45)
[2018-02-22 13:22] LABS: Puncture Site ALINE
[2018-02-22 13:32] LABS: Actual Bicarbonate (HCO3a) 22.7 mEq/L (22-28); CO2 Tension 30.7 mmHg (35.0-45.0); Carboxyhemoglobin (COHb) 1.8 gm% (0.0-3.0); Hematocrit-ABG 19.2 % (36.0-47.0); Hemoglobin (Hb) 11.6 g/dL (12.0-16.0); pH, Arterial 7.49 (7.35-7.45)
[2018-02-22 13:33] LABS: Analyzer IN Cardio OR; Calcium, Ionized 1.1 mmol/L (1.12-1.30); Puncture Site ALINE
[2018-02-22 13:33] LABS: Actual Bicarbonate (HCO3a) 23.3 mEq/L (22-28); Base Excess (BEa) -0.3 mEq/L (-2.0 to +3.0); CO2 Tension 33.3 mmHg (35.0-45.0); Hematocrit-ABG 24.5 % (36.0-47.0); Hemoglobin (Hb) 8.7 g/dL (12.0-16.0); pH, Arterial 7.46 (7.35-7.45)
[2018-02-22 13:34] LABS: Analyzer IN Cardio OR; Potassium - ABG Lab 3.6 mmol/L (3.70-5.30); Puncture Site ALINE
[2018-02-22 13:36] LABS: Actual Bicarbonate (HCO3v) 25 mEq/L (22-28); Analyzer IN Cardio OR; Base Excess 0.2 mEq/L (-2.0 to +3.0); Hematocrit-VBG 24.6 % (44.0-64.0); Hemoglobin (Hb) 8.5 g/dL (11.7-16.1); pH (venous) 7.424 (7.32-7.43)
[2018-02-22 13:38] LABS: Calcium, Ionized 1.06 mmol/L (1.16-1.32); Chloride (ABG LAB) 103 mmol/L (98-106); Potassium - ABG Lab 3.5 mmol/L (3.70-5.30)
[2018-02-22 13:39] LABS: Actual Bicarbonate (HCO3a) 24.1 mEq/L (22-28); Base Excess (BEa) -0.1 mEq/L (-2.0 to +3.0); CO2 Tension 37.1 mmHg (35.0-45.0); Hematocrit-ABG 24.2 % (36.0-47.0); Hemoglobin (Hb) 8.6 g/dL (12.0-16.0); O2 Tension (PaO2) 313.8 mmHg (> 70.0); pH, Arterial 7.43 (7.35-7.45)
[2018-02-22 13:40] LABS: Analyzer IN Cardio OR; Calcium, Ionized 1.1 mmol/L (1.12-1.30); Potassium - ABG Lab 3.5 mmol/L (3.70-5.30); Puncture Site ALINE
[2018-02-22 13:40] LABS: CO2 Tension 30.7 mmHg (35.0-45.0)
[2018-02-22 13:41] LABS: Actual Bicarbonate (HCO3a) 23.5 mEq/L (22-28); Analyzer IN Cardio OR; Base Excess (BEa) 0.7 mEq/L (-2.0 to +3.0); Calcium, Ionized 1.3 mmol/L (1.12-1.30); Carboxyhemoglobin (COHb) 1.9 gm% (0.0-3.0); Hematocrit-ABG 23.5 % (36.0-47.0); Hemoglobin (Hb) 8.8 g/dL (12.0-16.0); O2 Tension (PaO2) 506.3 mmHg (> 70.0); Potassium - ABG Lab 3.3 mmol/L (3.70-5.30); Puncture Site ALINE
[2018-02-22 13:42] LABS: CO2 Tension 31.9 mmHg (35.0-45.0); pH, Arterial 7.47 (7.35-7.45)
[2018-02-22 13:43] LABS: Actual Bicarbonate (HCO3a) 22.7 mEq/L (22-28); Analyzer IN Cardio OR; Base Excess (BEa) -0.5 mEq/L (-2.0 to +3.0); Calcium, Ionized 1.5 mmol/L (1.12-1.30); Carboxyhemoglobin (COHb) 1.8 gm% (0.0-3.0); Hematocrit-ABG 26.8 % (36.0-47.0); Hemoglobin (Hb) 9.9 g/dL (12.0-16.0); O2 Tension (PaO2) 512.3 mmHg (> 70.0); Potassium - ABG Lab 3.4 mmol/L (3.70-5.30); Puncture Site ALINE
--- NOTE | 2018-05-15 20:43 | STRESS ---
Acquisition Time: 2018-02-08 12:16:32 Total Exercise Time: 00:04:00 Test Indications: Syncope Medications: Protocol: ADENOSINE Max HR: 082 BPM 57% of Pred: 142 BPM Max BP: 170/064 mmHG Max Work Load: 1.0 METS RESTING ECG: SINUS BRADYCARDIA AT 59 BPM; SINUS ARRHYTHMIA SYMPTOMS: NONE NORMAL BP RESPONSE ECTOPY: NONE ECG STRESS: NO SIGNIFICANT CHANGES INTERPRETATION: NEGATIVE ECG/ NUCLEAR IMAGES TO FOLLOW Confirmed by HAYDE PELAYO ELLEN ([id number]) on 05/15/2018 8:42:39 PM Referred By: MD Yadira CALI Confirmed By:KARIN PELAYO PA-C
== END 2018-02-16 16:50 | DRG 233 ==
LOC: ERS 08:38 → 2SW 12:14 → OBSVTOIN 02-09 10:40 → 2NO 02-09 13:41 → CCU 02-10 08:51 → IMCU/EMU 02-11 17:12 → 2NO 02-14 20:24
PROVIDERS: ADMIT Family Medicine; ATTEND Family Medicine
PROC: 4A023N7 Measurement of Cardiac Sampling and Pressure, Left Heart, Percutaneous Approach (ICD-10-PCS; 2018-02-09)
PROC: 0HQ1XZZ Repair Face Skin, External Approach (ICD-10-PCS; 2018-02-09)
PROC: B215YZZ Fluoroscopy of Left Heart using Other Contrast (ICD-10-PCS; 2018-02-09)
PROC: B211YZZ Fluoroscopy of Multiple Coronary Arteries using Other Contrast (ICD-10-PCS; 2018-02-09)
PROC: 2W3CX1Z Immobilization of Right Lower Arm using Splint (ICD-10-PCS; 2018-02-09)
PROC: 02100Z9 Bypass Coronary Artery, One Artery from Left Internal Mammary, Open Approach (ICD-10-PCS; principal; 2018-02-10)
PROC: 021109W Bypass Coronary Artery, Two Arteries from Aorta with Autologous Venous Tissue, Open Approach (ICD-10-PCS; 2018-02-10)
PROC: 06BQ4ZZ Excision of Left Saphenous Vein, Percutaneous Endoscopic Approach (ICD-10-PCS; 2018-02-10)
PROC: 5A1221Z Performance of Cardiac Output, Continuous (ICD-10-PCS; 2018-02-10)
PROC: 5A09357 Assistance with Respiratory Ventilation, Less than 24 Consecutive Hours, Continuous Positive Airway Pressure (ICD-10-PCS; 2018-02-12)
DX: I25.10 Atherosclerotic heart disease of native coronary artery without angina pectoris (principal); J96.01 Acute respiratory failure with hypoxia; G92 Toxic encephalopathy; I47.2 Ventricular tachycardia; E87.2 Acidosis; N30.00 Acute cystitis without hematuria; I48.0 Paroxysmal atrial fibrillation; S01.112A Laceration without foreign body of left eyelid and periocular area, initial encounter; W18.39XA Other fall on same level, initial encounter; E03.9 Hypothyroidism, unspecified; G47.33 Obstructive sleep apnea (adult) (pediatric); M19.90 Unspecified osteoarthritis, unspecified site; B96.20 Unspecified Escherichia coli [E. coli] as the cause of diseases classified elsewhere; T41.205A Adverse effect of unspecified general anesthetics, initial encounter; Y92.239 Unspecified place in hospital as the place of occurrence of the external cause; I87.8 Other specified disorders of veins; S60.211A Contusion of right wrist, initial encounter; E87.8 Other disorders of electrolyte and fluid balance, not elsewhere classified; E66.9 Obesity, unspecified; Y92.009 Unspecified place in unspecified non-institutional (private) residence as the place of occurrence of the external cause; Z79.899 Other long term (current) drug therapy; Z90.710 Acquired absence of both cervix and uterus; Z91.81 History of falling; Z68.35 Body mass index [BMI] 35.0-35.9, adult; Z82.49 Family history of ischemic heart disease and other diseases of the circulatory system
CPT/HCPCS: 12011; 36415; 36416; 70450; 71045; 76942; 78452; 80048; 80053; 80061; 80076; 81001; 81003; 81015; 82553; 82805; 83036; 83735; 84100; 84439; 84443; 84481; 84484; 85025; 85610; 85730; 86850; 86900; 86901; 87077; 87086; 87186; 93005; 93010; 93017; 93306; 93458; 93798; 93880; 94002; 94150; A9500; C1769; J0153; J0282; J0360; J0696; J1160; J1642; J1644; J1815; J1885; J1940; J2001; J2150; J2250; J2440; J2704; J2720; J3010; J3475; J3480; J7050; J7070; P9045; S0028

== ENCOUNTER 2018-11-04 10:36 | Outpatient (CLI) | payer MEDICARE, BC | END 2018-11-04 10:37 | disposition home or self-care (01) | LOC: BICMAMMO 10:36 | PROVIDERS: ATTEND Family Medicine | DX: Z12.31 Encounter for screening mammogram for malignant neoplasm of breast (principal); R92.1 Mammographic calcification found on diagnostic imaging of breast; Z98.890 Other specified postprocedural states | CPT/HCPCS: 77063; 77067 ==

== ENCOUNTER 2019-04-21 10:01 | Inpatient (IN) | payer MEDICARE, BC ==
[2019-04-21 10:51] LABS: #Eosinphils 0.2 thou/uL (0.0-0.7); #Lymphocytes 1.4 thou/uL (1.20-3.40); #Monocytes 0.5 thou/uL (0.11-0.59); #Neutrophils 2.3 thou/uL (1.40-6.50); %Eosinophils 4.8 % (0.0-10.0); %Lymphocytes 31.2 % (21.0-51.0); %Monocytes 10.9 % (0.0-10.0); %Neutrophils 52.2 % (42.0-75.0); Mean Corpuscular HGB CONC 35.4 g/dL (32.0-36.0); Mean Corpuscular Hemoglobin 31.2 pg (27.0-31.0); Mean Corpuscular Volume 87.9 fL (78.0-98.0); Mean Platelet Volume 7.4 fL (7.4-10.4); Platelet Count 208 thou/uL (130-400); RBC Distribution Width 12.1 % (11.5-14.5); Red Blood Cell (RBC) Count 3.52 mill/uL (4.20-5.40); White Blood Cell (WBC) Count 4.3 thou/uL (4.8-10.8)
--- NOTE | 2019-04-21 10:55 | RAD ---
XR Chest 1 View Portable HISTORY: Weakness, syncope COMPARISON: 02/12/2018 FINDINGS: The heart size is normal. The lungs are well expanded without focal areas of consolidation, pneumothorax or pleural effusions. Changes of median sternotomy are again seen. The aorta is tortuous. IMPRESSION: No radiographic evidence of acute cardiopulmonary process.
[2019-04-21 11:14] LABS: ALT (SGPT) 12 U/L (8-55); AST (SGOT) 18 U/L (5-34); Albumin 3.4 g/dL (3.4-4.8); Alkaline Phosphatase 93 U/L (40-150); Anion Gap 8 mmol/L (10-20); BUN (Urea Nitrogen) 14 mg/dL (9.8-20.1); Bilirubin, Total 0.8 mg/dL (0.2-1.2); CK (CPK) 32 U/L (29-168); Calc. Creatinine Clearance 0 mL/min (70-130); Calcium 8.8 mg/dL (7.8-10.44); Carbon Dioxide 27 mmol/L (23-31); Chloride 91 mmol/L (98-107); Estimated GFR-MDRD 71; Globulin 2.8 g/dL (2.4-3.5); Glucose 102 mg/dL (83-110); Lipase 27 U/L (8-78); Potassium 4.1 mmol/L (3.5-5.1); Protein, Total 6.2 g/dL (6.0-8.3); Sodium 122 mmol/L (136-145)
[2019-04-21 12:23] LABS: Bilirubin Negative (Negative); Blood, Urine Negative (Negative); Clarity Clear (Clear); Glucose, Urine (Dipstick) Normal (Negative); Leukocyte 25 Leu/uL (Negative); Nitrite Negative (Negative); Protein, Urine (Dipstick) Negative (Neg-Trace); RBC/HPF 0-3 HPF (0-3); Squamous Epithelial 0-3 HPF (0-3); Urobilinogen Normal mg/dL (Less than 2)
[2019-04-21 12:38] LABS: Bacteria/HPF 1+ HPF (None Seen)
[2019-04-21] MEDS ORDERED: Ondansetron ODT 4 MG TAB PO PRN (12:39)
[2019-04-21] MEDS ORDERED: Acetaminophen 325 MG TAB PO PRN (12:39)
[2019-04-21] MEDS ORDERED: HYDROcodone/Acetaminophen 5/325 mg Tablet PO PRN (12:45)
[2019-04-21] MEDS: Sodium Chloride 0.9% 1,000 ML IV SCH (14:16)
--- NOTE | 2019-04-21 14:21 | HP ---
HISTORY OF PRESENT ILLNESS: This is a 79-year-old female, who presents with weakness. The patient has been having frequent urination throughout the day for the past 2 weeks. She has been seen in the clinic and given Cipro. However, she continues to feel very tired. She has also been having more incontinence. No complaints of any fever, nausea, or vomiting. On her routine office evaluation, the patient was found to have a sodium to be 123 and here in the ER, it was noted to be 122. However, other than that the patient has been relatively stable, ambulatory, and active. Additional questioning reveals that she does not routinely drink two 16-ounce bottles of water per day plus juice plus coffee and other fluids. MEDICATIONS: Include, 1. Losartan 25 b.i.d. 2. Meloxicam 15 daily. 3. Singulair 10 daily. 4. Levothyroxine 150 daily. 5. Aspirin 81 daily. 6. Lipitor 40 daily. 7. Metoprolol 25 b.i.d. 8. Hydrochlorothiazide 12.5 daily. 9. Zyrtec daily. She was also on Lasix 20 daily, which was stopped. She did complete a recent course of Cipro and Bactrim. PAST MEDICAL HISTORY: Allergies, hypothyroidism, arthritis, asthma, cataracts, history of falling, hypertension, hyperlipidemia. Followed by mammography technologist, Dr. Sam, last seen March 2019. PAST SURGICAL HISTORY: Wrist surgery in 1997, ankle surgery, eye surgery, breast biopsy, cardiac cath with a CABG x3 in February 09, 2018. FAMILY HISTORY: Mother with heart disease and stroke. Father's family unknown. SOCIAL HISTORY: She is a retired daycare worker. She does have two kids, five grand. She does not smoke and does not drink. ALLERGIES: SPINACH. REVIEW OF SYSTEMS: As above. PHYSICAL EXAMINATION: VITAL SIGNS: Blood pressure 133/63, pulse 49, pulse ox 99, respirations 14, afebrile. GENERAL: The patient is in no acute distress. HEENT: Clear. HEART: Bradycardic. LUNGS: Clear. ABDOMEN: Soft, nontender. EXTREMITIES: No edema. LABORATORY DATA: White count is 4.3, H and H 11 and 30, platelets of 208. Sodium 122, potassium 4.1, chloride 91, and creatinine 0.78, BUN 14. Troponin less than 0.010. BNP 410. TSH less than 0.0025. ASSESSMENT: 1. Hyponatremia, possibly secondary to excess water intake. The patient has also been on hydrochlorothiazide and Lasix. 2. Hypertension. 3. Hyperlipidemia. 4. Hypothyroidism with a low TSH at this time. Most likely need to lower her dose of thyroid. 5. Coronary artery disease status post bypass. 6. Urinary tract infection, recently treated. PLAN: 1. Fluid restrict. 2. Stop hydrochlorothiazide, stop Lasix. 3. At this time, I do not feel she needs antibiotics. 4. CBC, comprehensive in a.m. 5. Decreased thyroid meds from 150 to 125 daily. 6. Urine culture found to be negative. Job ID: [id number]
[2019-04-21 15:52] VITALS: BMI 33.3
[2019-04-21] MEDS: Famotidine 20 MG TAB PO SCH (19:59)
[2019-04-21] MEDS: Atorvastatin Calcium 40 MG TAB PO SCH (19:59)
[2019-04-21] MEDS: Amiodarone 200 MG TAB PO SCH (19:59)
[2019-04-21] MEDS: Metoprolol Tartrate 25 MG TAB PO SCH (19:59)
[2019-04-22 06:14] LABS: #Eosinphils 0.2 thou/uL (0.0-0.7); #Lymphocytes 1.4 thou/uL (1.20-3.40); #Monocytes 0.5 thou/uL (0.11-0.59); #Neutrophils 1.8 thou/uL (1.40-6.50); %Basophils 0.9 % (0.0-1.0); %Eosinophils 6.3 % (0.0-10.0); %Lymphocytes 34.9 % (21.0-51.0); %Monocytes 12.8 % (0.0-10.0); %Neutrophils 45.1 % (42.0-75.0); Hemoglobin 11.2 g/dL (12.0-16.0); Mean Corpuscular HGB CONC 35.8 g/dL (32.0-36.0); Mean Corpuscular Hemoglobin 32.1 pg (27.0-31.0); Mean Corpuscular Volume 89.6 fL (78.0-98.0); Mean Platelet Volume 7.3 fL (7.4-10.4); Platelet Count 212 thou/uL (130-400); RBC Distribution Width 12.1 % (11.5-14.5); White Blood Cell (WBC) Count 3.9 thou/uL (4.8-10.8)
[2019-04-22] MEDS: Levothyroxine Sodium 125 MCG TAB PO SCH (06:21)
[2019-04-22 06:33] LABS: Anion Gap 9 mmol/L (10-20); BUN (Urea Nitrogen) 9 mg/dL (9.8-20.1); Calc. Creatinine Clearance 88 mL/min (70-130); Carbon Dioxide 28 mmol/L (23-31); Chloride 98 mmol/L (98-107); Estimated GFR-MDRD 78; Glucose 93 mg/dL (83-110); Potassium 3.8 mmol/L (3.5-5.1); Sodium 131 mmol/L (136-145)
[2019-04-22] MEDS: Meloxicam 15 MG TAB PO SCH (08:19)
[2019-04-22] MEDS: Montelukast Sodium 10 mg Tablet PO SCH (08:19)
[2019-04-22] MEDS: Aspirin Chewable 81 MG TAB PO SCH (08:19)
[2019-04-22] MEDS: Metoprolol Tartrate 25 MG TAB PO SCH ×2 (08:20→19:46)
[2019-04-22] MEDS: Famotidine 20 MG TAB PO SCH ×2 (08:20→19:45)
[2019-04-22] MEDS: Enoxaparin Sodium 40 MG/0.4 ML SYRINGE SC SCH (08:20)
[2019-04-22] MEDS: Amiodarone 200 MG TAB PO SCH ×2 (08:20→19:45)
[2019-04-22] MEDS ORDERED: Prevnar 13-Val Conj/PF 0.5 ML SYRINGE IM ONE (09:00)
--- NOTE | 2019-04-22 11:43 | PRG ---
DATE OF SERVICE: 04/22/2019 SUBJECTIVE: The patient is feeling much better this morning. She had one bout of emesis, which was probably due to the hydrocodone. OBJECTIVE: VITAL SIGNS: Temperature 98.0, pulse 72, respirations 16, pulse ox 96%, and blood pressure 123/71. HEART: Regular rate and rhythm. LUNGS: Clear. ABDOMEN: Soft, nontender. LABORATORY DATA: H and H are 11 and 34, white count 3.9. Sodium went from 122 to 131, creatinine 0.72, and BUN 9. ASSESSMENT: 1. Hyponatremia, improved from 122 to 131 with fluid restriction and holding diuretics. 2. Hypertension. 3. Hyperlipidemia. 4. Hypothyroidism. 5. Coronary artery disease, status post bypass. 6. Urinary tract infection, resolved. PLAN: 1. Continue fluid restriction. 2. Continue to hold diuretics. 3. Recheck CBC and BMP in the a.m. and possibly discharge. 4. Thyroid decreased from 150 to 125. We will have to recheck in 6 weeks. Job ID: [id number]
[2019-04-22] MEDS: Sodium Chloride 0.9% 1,000 ML IV SCH ×2 (11:51→19:46)
[2019-04-22] MEDS: Atorvastatin Calcium 40 MG TAB PO SCH (19:46)
[2019-04-23] MEDS: Levothyroxine Sodium 125 MCG TAB PO SCH (05:47)
[2019-04-23 05:51] LABS: #Basophils 0.1 thou/uL (0.0-0.2); #Eosinphils 0.3 thou/uL (0.0-0.7); #Lymphocytes 1.8 thou/uL (1.20-3.40); #Monocytes 0.6 thou/uL (0.11-0.59); #Neutrophils 2.6 thou/uL (1.40-6.50); %Eosinophils 5.3 % (0.0-10.0); %Lymphocytes 33.5 % (21.0-51.0); %Monocytes 10.4 % (0.0-10.0); %Neutrophils 49.8 % (42.0-75.0); Mean Corpuscular HGB CONC 34.8 g/dL (32.0-36.0); Mean Corpuscular Hemoglobin 31.6 pg (27.0-31.0); Mean Corpuscular Volume 90.9 fL (78.0-98.0); Mean Platelet Volume 7.1 fL (7.4-10.4); Platelet Count 214 thou/uL (130-400); RBC Distribution Width 12.4 % (11.5-14.5); White Blood Cell (WBC) Count 5.3 thou/uL (4.8-10.8)
[2019-04-23 06:08] LABS: Anion Gap 10 mmol/L (10-20); BUN (Urea Nitrogen) 10 mg/dL (9.8-20.1); Calc. Creatinine Clearance 79 mL/min (70-130); Calcium 8.9 mg/dL (7.8-10.44); Carbon Dioxide 30 mmol/L (23-31); Chloride 100 mmol/L (98-107); Estimated GFR-MDRD 68; Glucose 97 mg/dL (83-110); Potassium 4.6 mmol/L (3.5-5.1); Sodium 135 mmol/L (136-145)
[2019-04-23 07:56] VITALS: BP 127/71; TEMP 98.1
[2019-04-23] MEDS: Amiodarone 200 MG TAB PO SCH (08:37)
[2019-04-23] MEDS: Famotidine 20 MG TAB PO SCH (08:37)
[2019-04-23] MEDS: Metoprolol Tartrate 25 MG TAB PO SCH (08:37)
[2019-04-23] MEDS: Montelukast Sodium 10 mg Tablet PO SCH (08:37)
[2019-04-23] MEDS: Meloxicam 15 MG TAB PO SCH (08:37)
[2019-04-23] MEDS: Aspirin Chewable 81 MG TAB PO SCH (08:37)
[2019-04-23] MEDS: Enoxaparin Sodium 40 MG/0.4 ML SYRINGE SC SCH (08:37)
--- NOTE | 2019-04-23 11:23 | DIS ---
DATE OF ADMISSION: 04/21/2019 DATE OF DISCHARGE: 04/23/2019 DISCHARGE DIAGNOSES: 1. Hyponatremia, resolved. 2. Hypertension. 3. Hyperlipidemia. 4. Hypothyroidism, adjusting medications. 5. Coronary artery disease, status post bypass. 6. Urinary tract infection, resolved. MEDICATIONS: 1. Levothyroxine 125 p.o. daily. 2. Aspirin 81 daily. 3. Lipitor 40 daily. 4. Hydrocodone 5 mg p.r.n. 5. Meloxicam 15 daily. 6. Metoprolol 25 p.o. b.i.d. 7. Singulair 10 daily. 8. Lasix 20 daily. 9. Losartan 25 p.o. b.i.d. BRIEF HISTORY: This is a 79-year-old female, who presents with weakness. She was having frequent episodes of urination for the past 2 weeks. She was seen in the clinic and given Cipro. She had no complaints of any fever, nausea, or vomiting. On a routine exam in the office, she was found to have a sodium of 123 and then sent to the emergency room. Other than that, she has been relatively asymptomatic. She does drink quite a bit of fluids. She routinely drinks two 16-ounce bottles of water per day plus juice, coffee, and other fluids. HOSPITAL COURSE: The patient was placed on fluid restriction 1000 mL per day. Her sodiums were followed and by day 2, her levels returned to normal. Her hydrochlorothiazide was stopped. She will be followed in the office this week and have her labs retested. Her sodium went from 122 to 131 to 135 and a potassium of 4.1 to 3.8 to 4.6. We will follow closely in the office. Job ID: [id number]
== END 2019-04-23 12:45 | disposition home or self-care (01) | DRG 641 ==
LOC: ERS 10:01 → T4-B 11:05
PROVIDERS: ADMIT Family Medicine; ATTEND Family Medicine
DX: E87.1 Hypo-osmolality and hyponatremia (principal); N39.0 Urinary tract infection, site not specified; E03.9 Hypothyroidism, unspecified; M19.91 Primary osteoarthritis, unspecified site; J45.909 Unspecified asthma, uncomplicated; I10 Essential (primary) hypertension; E78.5 Hyperlipidemia, unspecified; Z79.82 Long term (current) use of aspirin; Z95.1 Presence of aortocoronary bypass graft; Z95.5 Presence of coronary angioplasty implant and graft; Z98.890 Other specified postprocedural states; Z79.899 Other long term (current) drug therapy; Z91.018 Allergy to other foods
CPT/HCPCS: 36415; 71045; 80048; 80053; 81003; 81015; 82550; 83690; 83880; 84443; 84484; 85025; 87086; 93005; J1650; Q0162

== ENCOUNTER 2019-05-17 11:29 | Outpatient (CLI) | payer MEDICARE, BC ==
--- NOTE | 2019-05-17 12:41 | ULT ---
RENAL ULTRASOUND: 05/17/19 INDICATION: Dysuria and UTIs. COMPARISON: None. FINDINGS: Right kidney measures 10.2 x 4.5 x 4.4 cm. Left kidney measures 9.1 x 4 x 3.3 cm. Prevoid bladder vol ume is 96.41 mL. IMPRESSION: No focal renal lesion or hydronephrosis. POS: TPC
== END 2019-05-17 11:30 | disposition home or self-care (01) ==
LOC: BICULT 11:29
PROVIDERS: ATTEND Urology
DX: R30.0 Dysuria (principal); Z87.440 Personal history of urinary (tract) infections
CPT/HCPCS: 76770

== ENCOUNTER 2019-11-06 13:45 | Outpatient (CLI) | payer MEDICARE, BC ==
--- NOTE | 2019-11-06 15:43 | MMO ---
Bilateral MAMMO Bilat Screen [facility]. CLINICAL HISTORY: Patient is 79 years old and is seen for screening. The patient has the following family history of breast cancer: sister. The patient has no personal history of cancer. The patient has a history of right Stereotatic Biopsy in February, - fibroadenoma and left Excisional Biopsy in 1983 - benign. VIEWS: The views performed were: bilateral craniocaudal with tomosynthesis and bilateral mediolateral oblique with tomosynthesis. FILMS COMPARED: The present examination has been compared to prior imaging studies performed at [facility] on 03/04/2015, 03/06/2016, 03/08/2017 and 11/04/2018. This study has been interpreted with the assistance of computer-aided detection. MAMMOGRAM FINDINGS: There are scattered fibroglandular densities. There are no suspicious masses, suspicious calcifications, or new areas of architectural distortion. IMPRESSION: THERE IS NO MAMMOGRAPHIC EVIDENCE OF MALIGNANCY. A ROUTINE FOLLOW-UP MAMMOGRAM IN 1 YEAR IS RECOMMENDED. THE RESULTS OF THIS EXAM WERE SENT TO THE PATIENT. ACR BI-RADS Category 1 - Negative MAMMOGRAPHY NOTE: 1. A negative mammogram report should not delay a biopsy if a dominant of clinically suspicious mass is present. 2. Approximately 10% to 15% of breast cancers are not detected by mammography. 3. Adenosis and dense breasts may obscure an underlying neoplasm. Reported by: Gabo VILLA Electonically Signed: [id number]
== END 2019-11-06 13:46 | disposition home or self-care (01) ==
LOC: BICMAMMO 13:45
PROVIDERS: ATTEND Family Medicine
DX: Z12.31 Encounter for screening mammogram for malignant neoplasm of breast (principal); Z80.3 Family history of malignant neoplasm of breast; Z91.89 Other specified personal risk factors, not elsewhere classified
CPT/HCPCS: 77063; 77067

== ENCOUNTER 2020-02-20 18:00 | Outpatient (CLI) | payer MEDICARE, BC | END 2020-02-20 18:01 | disposition home or self-care (01) | LOC: SLEEPLAB 18:00 | PROVIDERS: ATTEND Family Medicine | DX: G47.33 Obstructive sleep apnea (adult) (pediatric) (principal); R53.83 Other fatigue; R06.83 Snoring; G47.00 Insomnia, unspecified; E66.9 Obesity, unspecified; Z68.34 Body mass index [BMI] 34.0-34.9, adult | CPT/HCPCS: 95801 ==

== ENCOUNTER 2020-02-29 19:30 | Outpatient (CLI) | payer MEDICARE, BC | END 2020-02-29 19:31 | disposition home or self-care (01) | LOC: SLEEPLAB 19:30 | PROVIDERS: ATTEND Family Medicine | DX: G47.33 Obstructive sleep apnea (adult) (pediatric) (principal); R53.83 Other fatigue; E66.9 Obesity, unspecified; R06.83 Snoring | CPT/HCPCS: 95811 ==

== ENCOUNTER 2020-05-28 14:05 | Outpatient (CLI) | payer MEDICARE, BC | END 2020-05-28 14:06 | disposition home or self-care (01) | LOC: CTENTCT 14:05 | PROVIDERS: ATTEND Specialist | DX: J32.8 Other chronic sinusitis (principal) | CPT/HCPCS: 70486 ==

== ENCOUNTER 2020-11-12 13:22 | Outpatient (CLI) | payer MEDICARE, BC ==
--- NOTE | 2020-11-12 14:10 | MMO ---
Bilateral MAMMO Bilat Screen [facility]. CLINICAL HISTORY: Patient is 80 years old and is seen for screening. The patient has the following family history of breast cancer: sister. The patient has no personal history of cancer. The patient has a history of right Stereotatic Biopsy in February, - fibroadenoma and left Excisional Biopsy in 1983 - benign. VIEWS: The views performed were: bilateral craniocaudal with tomosynthesis and bilateral mediolateral oblique with tomosynthesis. FILMS COMPARED: The present examination has been compared to prior imaging studies performed at [facility] on 03/06/2016, 03/08/2017, 11/04/2018 and 11/06/2019. This study has been interpreted with the assistance of computer-aided detection. MAMMOGRAM FINDINGS: There are scattered fibroglandular densities. There are stable benign appearing calcifications seen in both breasts. A biopsy clip is seen in the right breast. There are no suspicious masses, suspicious calcifications, or new areas of architectural distortion. IMPRESSION: THERE IS NO MAMMOGRAPHIC EVIDENCE OF MALIGNANCY. A ROUTINE FOLLOW-UP MAMMOGRAM IN 1 YEAR IS RECOMMENDED. THE RESULTS OF THIS EXAM WERE SENT TO THE PATIENT. ACR BI-RADS Category 2 - Benign finding MAMMOGRAPHY NOTE: 1. A negative mammogram report should not delay a biopsy if a dominant of clinically suspicious mass is present. 2. Approximately 10% to 15% of breast cancers are not detected by mammography. 3. Adenosis and dense breasts may obscure an underlying neoplasm. Reported by: MILDA MALIK MD Electonically Signed: [id number]
== END 2020-11-12 13:23 | disposition home or self-care (01) ==
LOC: BICMAMMO 13:22
PROVIDERS: ATTEND Family Medicine
DX: Z12.31 Encounter for screening mammogram for malignant neoplasm of breast (principal); Z91.89 Other specified personal risk factors, not elsewhere classified
CPT/HCPCS: 77063; 77067

== ENCOUNTER 2021-06-11 13:38 | Emergency (ER) | payer OTHER, MEDICARE, BC ==
[2021-06-11] MEDS ORDERED: Acetaminophen 325 MG TAB ONE (14:31)
== END 2021-06-11 15:53 | disposition home or self-care (01) ==
LOC: ERS 13:38
DX: S52.502A Unspecified fracture of the lower end of left radius, initial encounter for closed fracture (principal); S52.602A Unspecified fracture of lower end of left ulna, initial encounter for closed fracture; E03.9 Hypothyroidism, unspecified; J45.909 Unspecified asthma, uncomplicated; W01.0XXA Fall on same level from slipping, tripping and stumbling without subsequent striking against object, initial encounter; Y92.29 Other specified public building as the place of occurrence of the external cause; Z79.899 Other long term (current) drug therapy
CPT/HCPCS: 29125

== ENCOUNTER 2021-06-17 12:27 | Outpatient (CLI) | payer MEDICARE, BC ==
[2021-06-17 13:35] LABS: Hemoglobin 10.3 g/dL (12.0-15.5); Mean Corpuscular HGB CONC 34.7 g/dL (32.0-36.0); Mean Corpuscular Hemoglobin 32.7 pg (27.0-33.0); Mean Corpuscular Volume 94.3 fl (81.6-98.3); Mean Platelet Volume 8.9 fl (7.4-10.4); Platelet Count 325 10x3/uL (150-450); RBC Distribution Width 14.1 % (11.5-14.5); Red Blood Cell (RBC) Count 3.15 10x6/uL (3.90-5.03); White Blood Cell (WBC) Count 6.5 10x3/uL (3.5-10.5)
[2021-06-17 13:52] LABS: Anion Gap 15 mmol/L (10-20); BUN (Urea Nitrogen) 14 mg/dL (9.8-20.1); Calc. Creatinine Clearance 0 mL/min (70-130); Calcium 8.9 mg/dL (7.8-10.44); Carbon Dioxide 22 mmol/L (23-31); Chloride 93 mmol/L (98-107); Glucose 125 mg/dL (83-110); Potassium 4.3 mmol/L (3.5-5.1); Sodium 126 mmol/L (136-145)
[2021-06-17 23:48] LABS: SARS-CoV-2 PCR by NAA Not Detected (NotDetected)
== END 2021-06-17 12:28 | disposition home or self-care (01) ==
LOC: LABBT 12:27
PROVIDERS: ATTEND Orthopaedic Surgery
DX: Z01.818 Encounter for other preprocedural examination (principal); S52.502A Unspecified fracture of the lower end of left radius, initial encounter for closed fracture; Z20.822 Contact with and (suspected) exposure to COVID-19
CPT/HCPCS: 80048; 85027; 93005; U0003; U0005; 93010

== ENCOUNTER 2021-06-20 07:05 | Day surgery (SDC) | payer MEDICARE, BC ==
[2021-06-18 14:47] VITALS: BMI 35.1
[2021-06-20] MEDS ORDERED: Lidocaine 1% (PF) 30 ML VIAL ONE (08:12)
[2021-06-20] MEDS ORDERED: Fentanyl 100 MCG/2 ML VIAL ONE ×2 (08:12→09:26)
[2021-06-20] MEDS ORDERED: Midazolam HCl 2 mg/2 ml Vial ONE (08:12)
[2021-06-20] MEDS ORDERED: ceFAZolin 2 GM/DEX 5% 100 ML BAG ONE (08:22)
[2021-06-20] MEDS ORDERED: Ketorolac Tromethamine 30 MG/ML VIAL ONE (09:32)
[2021-06-20] MEDS ORDERED: Ondansetron PF 4 MG/2 ML Vial ONE (09:32)
[2021-06-20] MEDS ORDERED: Dexamethasone 20 MG/5 ML VIAL ONE (09:32)
[2021-06-20] MEDS ORDERED: PROPOFOL 200 MG/20 ML VIAL ONE (09:32)
[2021-06-20] MEDS ORDERED: Bupivacaine HCl 0.5%/Epinephrine 1:200,000/PF 30 ml Vial ONE (09:32)
[2021-06-20] MEDS ORDERED: ePHEDrine 50 MG/ML VIAL ONE (09:32)
== END 2021-06-20 15:26 | disposition admitted as inpatient to this hospital (09) ==
LOC: SDC 07:05
PROVIDERS: ATTEND Orthopaedic Surgery
PROC: 0PSJ04Z Reposition Left Radius with Internal Fixation Device, Open Approach (ICD-10-PCS; principal; 2021-06-20)
PROC: 3E0T3BZ Introduction of Anesthetic Agent into Peripheral Nerves and Plexi, Percutaneous Approach (ICD-10-PCS; 2021-06-20)
DX: S52.552A Other extraarticular fracture of lower end of left radius, initial encounter for closed fracture (principal); S52.612A Displaced fracture of left ulna styloid process, initial encounter for closed fracture; I25.10 Atherosclerotic heart disease of native coronary artery without angina pectoris; E03.9 Hypothyroidism, unspecified; M19.90 Unspecified osteoarthritis, unspecified site; J45.909 Unspecified asthma, uncomplicated; I10 Essential (primary) hypertension; E78.5 Hyperlipidemia, unspecified; G47.33 Obstructive sleep apnea (adult) (pediatric); Z79.1 Long term (current) use of non-steroidal anti-inflammatories (NSAID); Z79.82 Long term (current) use of aspirin; Z79.899 Other long term (current) drug therapy; Z91.018 Allergy to other foods; Z95.1 Presence of aortocoronary bypass graft; W18.30XA Fall on same level, unspecified, initial encounter
CPT/HCPCS: 25607; 64415; 73110; 76000; C1713 ×2; J1100; J1885; J2001; J2250; J2405; J2704; J3010; J3490

== ENCOUNTER 2021-11-13 13:58 | Outpatient (CLI) | payer MEDICARE, BC | END 2021-11-13 13:59 | disposition home or self-care (01) | LOC: BICMAMMO 13:58 | PROVIDERS: ATTEND Family Medicine | DX: Z12.31 Encounter for screening mammogram for malignant neoplasm of breast (principal); Z80.3 Family history of malignant neoplasm of breast; Z91.89 Other specified personal risk factors, not elsewhere classified; N64.89 Other specified disorders of breast | CPT/HCPCS: 77063; 77067 ==

== ENCOUNTER 2021-11-17 13:06 | Outpatient (CLI) | payer MEDICARE, BC | END 2021-11-17 13:07 | disposition home or self-care (01) | LOC: BICMAMMO 13:06 | PROVIDERS: ATTEND Family Medicine | DX: R92.2 Inconclusive mammogram (principal) | CPT/HCPCS: 77065; G0279 ==

== ENCOUNTER 2022-01-17 17:12 | Inpatient (IN) | payer MEDICARE, BC ==
[2022-01-17] MEDS ORDERED: Xylocaine 1% w/ Epi 1:100K 10 ML VIAL ONE (17:34)
[2022-01-17] MEDS ORDERED: Ketorolac Tromethamine 30 MG/ML VIAL ONE (17:43)
[2022-01-17] MEDS ORDERED: Morphine 4 MG/ML VIAL ONE ×2 (17:43→20:35)
[2022-01-17] MEDS ORDERED: Boostrix 0.5 ML (Tdap) VIAL ONE (17:43)
[2022-01-17 17:48] LABS: #Eosinphils 0.3 thou/uL (0.0-0.7); #Lymphocytes 3.4 thou/uL (1.20-3.40); #Monocytes 0.6 thou/uL (0.11-0.59); %Basophils 0.5 % (0.0-1.0); %Eosinophils 3.2 % (0.0-10.0); %Lymphocytes 40.5 % (21.0-51.0); %Monocytes 7.6 % (0.0-10.0); %Neutrophils 48.1 % (42.0-75.0); Hemoglobin 11.1 g/dL (12.0-16.0); Mean Corpuscular HGB CONC 34.3 g/dL (32.0-36.0); Mean Corpuscular Hemoglobin 34.4 pg (27.0-31.0); Mean Platelet Volume 7.1 fL (7.4-10.4); Platelet Count 275 thou/uL (130-400); RBC Distribution Width 12.2 % (11.5-14.5); Red Blood Cell (RBC) Count 3.24 mill/uL (4.20-5.40); White Blood Cell (WBC) Count 8.3 thou/uL (4.8-10.8)
[2022-01-17 18:07] LABS: ALT (SGPT) 15 U/L (8-55); AST (SGOT) 16 U/L (5-34); Albumin 3.6 g/dL (3.4-4.8); Alkaline Phosphatase 88 U/L (40-110); Anion Gap 11 mmol/L (10-20); BUN (Urea Nitrogen) 16 mg/dL (9.8-20.1); Bilirubin, Total 0.6 mg/dL (0.2-1.2); Calc. Creatinine Clearance 0 mL/min (70-130); Calcium 8.5 mg/dL (7.8-10.44); Carbon Dioxide 27 mmol/L (23-31); Chloride 101 mmol/L (98-107); Globulin 2.5 g/dL (2.4-3.5); Glucose 113 mg/dL (83-110); Potassium 3.7 mmol/L (3.5-5.1); Protein, Total 6.1 g/dL (5.8-8.1); Sodium 135 mmol/L (136-145)
[2022-01-17] MEDS ORDERED: Dextrose 50% Abboject 50 ML SYRINGE SLOW IVP PRN (20:09)
[2022-01-17] MEDS ORDERED: Morphine 2 MG/ML VIAL SLOW IVP PRN (20:09)
[2022-01-17] MEDS ORDERED: Ondansetron PF 4 MG/2 ML Vial IVP PRN (20:09)
[2022-01-17] MEDS ORDERED: hydrALAZINE 20 MG/ML VIAL SLOW IVP PRN (20:09)
[2022-01-17] MEDS ORDERED: Dextrose 5% in Water 1,000 ML IV PRN (20:09)
[2022-01-17] MEDS ORDERED: traMADol HCl 50 MG TAB PO PRN ×2 (20:13)
[2022-01-17] MEDS ORDERED: Cyclobenzaprine 10 MG TAB PO PRN (20:13)
[2022-01-17 20:14] LABS: Phosphorus 3.2 mg/dL (2.3-4.7)
[2022-01-17] MEDS ORDERED: Potassium Phosphate 15 MMOL in Sodium Chloride 0.9% 250 ML 250 ML IVPB SCH (20:30)
[2022-01-17] MEDS: Ibuprofen 600 MG TAB PO SCH (23:05)
[2022-01-17] MEDS: Senokot S 8.6-50 MG TAB PO SCH (23:06)
[2022-01-17] MEDS: Famotidine 20 MG TAB PO SCH (23:06)
[2022-01-17 23:31] VITALS: BMI 35.2
[2022-01-18 00:10] LABS: Bilirubin Negative (Negative); Blood, Urine Negative (Negative); Clarity Clear (Clear); Glucose, Urine (Dipstick) Normal (Negative); Ketone, Urine Negative (Negative); Leukocyte 75 Leu/uL (Negative); Nitrite Negative (Negative); Protein, Urine (Dipstick) Negative (Neg-Trace); RBC/HPF 0-3 HPF (0-3); Specific Gravity, Urine 1.019 (1.002-1.036); Squamous Epithelial 0-3 HPF (0-3); Urobilinogen Normal mg/dL (Less than 2); pH, Urine 5.5 (5.0-9.0)
[2022-01-18 00:16] LABS: Bacteria/HPF 1+ HPF (None Seen)
[2022-01-18 00:18] LABS: Urine Culture Reflex Yes Yes
[2022-01-18] MEDS: Acetaminophen 500 MG TAB PO SCH ×5 (01:51→23:18)
[2022-01-18 04:26] LABS: #Lymphocytes 1.1 thou/uL (1.20-3.40); #Monocytes 0.6 thou/uL (0.11-0.59); #Neutrophils 5.7 thou/uL (1.40-6.50); %Basophils 0.2 % (0.0-1.0); %Eosinophils 0.5 % (0.0-10.0); %Lymphocytes 14.8 % (21.0-51.0); %Monocytes 8.3 % (0.0-10.0); %Neutrophils 76.1 % (42.0-75.0); Hemoglobin 10.1 g/dL (12.0-16.0); Mean Corpuscular HGB CONC 33.9 g/dL (32.0-36.0); Mean Corpuscular Hemoglobin 34.4 pg (27.0-31.0); Mean Platelet Volume 7.5 fL (7.4-10.4); Platelet Count 219 thou/uL (130-400); RBC Distribution Width 12.2 % (11.5-14.5); Red Blood Cell (RBC) Count 2.93 mill/uL (4.20-5.40); White Blood Cell (WBC) Count 7.4 thou/uL (4.8-10.8)
[2022-01-18 04:49] LABS: Anion Gap 14 mmol/L (10-20); BUN (Urea Nitrogen) 16 mg/dL (9.8-20.1); Calc. Creatinine Clearance 88 mL/min (70-130); Calcium 8.3 mg/dL (7.8-10.44); Carbon Dioxide 24 mmol/L (23-31); Chloride 102 mmol/L (98-107); Glucose 135 mg/dL (83-110); Magnesium 1.9 mg/dL (1.6-2.6); Phosphorus 4.4 mg/dL (2.3-4.7); Potassium 4.6 mmol/L (3.5-5.1); Sodium 135 mmol/L (136-145)
[2022-01-18] MEDS: Ciprofloxacin 500 MG TAB PO SCH ×2 (05:45→21:44)
[2022-01-18] MEDS: Ibuprofen 600 MG TAB PO SCH ×3 (05:46→21:44)
[2022-01-18 07:31] LABS: SARS-CoV-2 NAA Rapid Test Not Detected (NotDetected)
[2022-01-18] MEDS ORDERED: Levothyroxine Sodium 125 MCG TAB PO SCH (08:45)
[2022-01-18] MEDS: Senokot S 8.6-50 MG TAB PO SCH ×2 (08:50→21:44)
[2022-01-18] MEDS: Famotidine 20 MG TAB PO SCH ×2 (08:51→21:44)
[2022-01-18] MEDS: Polyethylene Glycol 3350 17 GM Packet PO SCH (08:51)
[2022-01-18] MEDS ORDERED: ceFAZolin (BATCH) 2 GM/100 ML BAG ONE (10:21)
[2022-01-18] MEDS ORDERED: fentaNYL Citrate/PF 100 MCG/2 ML SYRINGE ONE (10:29)
[2022-01-18] MEDS ORDERED: ePHEDrine 50 MG/ML VIAL ONE (11:09)
[2022-01-18] MEDS ORDERED: PHENYLEPHRINE-NS 100 MCG/ML 10 ML SYRINGE ONE (11:09)
[2022-01-18] MEDS ORDERED: Lidocaine 1% PF 5 ML VIAL ONE (11:09)
[2022-01-18] MEDS ORDERED: PROPOFOL 200 MG/20 ML VIAL ONE (11:09)
[2022-01-18] MEDS ORDERED: Tranexamic Acid 1,000 MG/10 ML VIAL ONE ×2 (11:24→12:09)
[2022-01-18] MEDS ORDERED: Promethazine HCl 25 MG/ML VIAL IM PRN (12:00)
[2022-01-18] MEDS ORDERED: Ondansetron HCl/PF 4 MG/2 ML Vial IVP PRN (12:00)
[2022-01-18] MEDS ORDERED: Promethazine HCl 25 MG/ML VIAL IVPB PRN (12:00)
[2022-01-18] MEDS ORDERED: PHARMACY TO RENALLY ADJUST ABX FS SCH (12:30)
[2022-01-18] MEDS ORDERED: TETANUS AND DIPHTHERIA TOX/PF 0.5 ML DISP.SYRIN IM SCH (12:30)
[2022-01-18] MEDS ORDERED: HYDROcodone/Acetaminophen 10/325 mg Tablet PO PRN ×2 (12:30)
[2022-01-18] MEDS ORDERED: Morphine 4 MG/ML VIAL SLOW IVP PRN (12:30)
[2022-01-18] MEDS ORDERED: ceFAZolin (BATCH) 2 GM in Premix Bag 1 BAG IVPB SCH (13:30)
[2022-01-18] MEDS: ceFAZolin (BATCH) 2 GM in Premix Bag 1 BAG IVPB SCH (18:12)
[2022-01-18] MEDS: Aspirin 81 mg Enteric Coated Tablet PO SCH (21:44)
[2022-01-18] MEDS: Atorvastatin Calcium 40 MG TAB PO SCH (21:44)
[2022-01-19] MEDS: ceFAZolin (BATCH) 2 GM in Premix Bag 1 BAG IVPB SCH ×3 (03:40→22:14)
[2022-01-19 04:29] LABS: #Lymphocytes 0.8 thou/uL (1.20-3.40); #Monocytes 0.5 thou/uL (0.11-0.59); #Neutrophils 4.6 thou/uL (1.40-6.50); %Basophils 0.1 % (0.0-1.0); %Eosinophils 0.6 % (0.0-10.0); %Lymphocytes 14.1 % (21.0-51.0); %Neutrophils 77.1 % (42.0-75.0); Hemoglobin 8.8 g/dL (12.0-16.0); Mean Corpuscular HGB CONC 34.6 g/dL (32.0-36.0); Mean Corpuscular Hemoglobin 35.1 pg (27.0-31.0); Mean Platelet Volume 7.4 fL (7.4-10.4); Platelet Count 187 thou/uL (130-400); RBC Distribution Width 12.1 % (11.5-14.5); Red Blood Cell (RBC) Count 2.49 mill/uL (4.20-5.40)
[2022-01-19 04:52] LABS: ALT (SGPT) 14 U/L (8-55); AST (SGOT) 16 U/L (5-34); Alkaline Phosphatase 47 U/L (40-110); Anion Gap 10 mmol/L (10-20); BUN (Urea Nitrogen) 13 mg/dL (9.8-20.1); Bilirubin, Total 0.5 mg/dL (0.2-1.2); Calc. Creatinine Clearance 81 mL/min (70-130); Calcium 8.1 mg/dL (7.8-10.44); Carbon Dioxide 26 mmol/L (23-31); Chloride 102 mmol/L (98-107); Globulin 2.2 g/dL (2.4-3.5); Glucose 136 mg/dL (83-110); Potassium 4.3 mmol/L (3.5-5.1); Protein, Total 5.2 g/dL (5.8-8.1); Sodium 134 mmol/L (136-145)
[2022-01-19] MEDS: Levothyroxine Sodium 125 MCG TAB PO SCH (05:43)
[2022-01-19] MEDS: Ciprofloxacin 500 MG TAB PO SCH ×2 (05:43→20:15)
[2022-01-19] MEDS: Acetaminophen 500 MG TAB PO SCH ×4 (05:43→23:43)
[2022-01-19] MEDS: Ibuprofen 600 MG TAB PO SCH ×2 (05:44→15:34)
[2022-01-19] MEDS: Senokot S 8.6-50 MG TAB PO SCH ×2 (09:27→20:16)
[2022-01-19] MEDS: Aspirin 81 mg Enteric Coated Tablet PO SCH ×2 (09:27→20:15)
[2022-01-19] MEDS: Famotidine 20 MG TAB PO SCH ×2 (09:27→20:15)
[2022-01-19] MEDS: Ferrous Sulfate 325 MG TAB PO SCH ×2 (09:27→20:15)
[2022-01-19] MEDS: Ascorbic Acid 500 mg Chewable Tablet PO SCH ×2 (09:28→20:16)
[2022-01-19] MEDS: Losartan 25 MG TAB PO SCH ×2 (09:28→20:15)
[2022-01-19] MEDS: Polyethylene Glycol 3350 17 GM Packet PO SCH (09:29)
[2022-01-19] MEDS: traMADol HCl 50 MG TAB PO SCH ×3 (12:40→23:43)
[2022-01-19] MEDS ORDERED: Ibuprofen 200 MG TAB PO SCH (15:00)
[2022-01-19] MEDS: Atorvastatin Calcium 40 MG TAB PO SCH (20:16)
[2022-01-19] MEDS: Ibuprofen 200 MG TAB PO SCH (22:14)
[2022-01-20] MEDS: traMADol HCl 50 MG TAB PO SCH ×2 (05:38→10:25)
[2022-01-20] MEDS: Acetaminophen 500 MG TAB PO SCH ×2 (05:38→10:26)
[2022-01-20] MEDS: Ciprofloxacin 500 MG TAB PO SCH (05:39)
[2022-01-20] MEDS: ceFAZolin (BATCH) 2 GM in Premix Bag 1 BAG IVPB SCH (05:39)
[2022-01-20] MEDS: Levothyroxine Sodium 125 MCG TAB PO SCH (05:39)
[2022-01-20] MEDS: Ibuprofen 200 MG TAB PO SCH (05:43)
[2022-01-20 06:21] LABS: #Eosinphils 0.5 thou/uL (0.0-0.7); #Monocytes 0.7 thou/uL (0.11-0.59); #Neutrophils 3.2 thou/uL (1.40-6.50); %Basophils 0.6 % (0.0-1.0); %Eosinophils 8.2 % (0.0-10.0); %Lymphocytes 30.6 % (21.0-51.0); %Monocytes 11.1 % (0.0-10.0); %Neutrophils 49.5 % (42.0-75.0); Hemoglobin 9.5 g/dL (12.0-16.0); Mean Corpuscular HGB CONC 33.8 g/dL (32.0-36.0); Mean Corpuscular Hemoglobin 34.9 pg (27.0-31.0); Mean Platelet Volume 7.5 fL (7.4-10.4); Platelet Count 215 thou/uL (130-400); RBC Distribution Width 12.3 % (11.5-14.5); Red Blood Cell (RBC) Count 2.71 mill/uL (4.20-5.40); White Blood Cell (WBC) Count 6.5 thou/uL (4.8-10.8)
[2022-01-20 07:40] VITALS: BP 139/87; TEMP 97.4
[2022-01-20] MEDS: Senokot S 8.6-50 MG TAB PO SCH (08:05)
[2022-01-20] MEDS: Aspirin 81 mg Enteric Coated Tablet PO SCH (08:05)
[2022-01-20] MEDS: Losartan 25 MG TAB PO SCH (08:05)
[2022-01-20] MEDS: Ferrous Sulfate 325 MG TAB PO SCH (08:05)
[2022-01-20] MEDS: Ascorbic Acid 500 mg Chewable Tablet PO SCH (08:05)
[2022-01-20] MEDS: Famotidine 20 MG TAB PO SCH (08:05)
[2022-01-20] MEDS: Polyethylene Glycol 3350 17 GM Packet PO SCH (08:09)
[2022-01-20] MEDS ORDERED: Furosemide 20 MG TAB PO SCH ×2 (09:00)
== END 2022-01-20 14:10 | DRG 478 ==
LOC: ERS 17:12 → 2NO 20:09 → T4-A 01-19 11:27
PROVIDERS: ADMIT Surgery; ATTEND Surgery
PROC: 0CQ0XZZ Repair Upper Lip, External Approach (ICD-10-PCS; 2022-01-17)
PROC: 0QS704Z Reposition Left Upper Femur with Internal Fixation Device, Open Approach (ICD-10-PCS; principal; 2022-01-18)
PROC: 0QB90ZX Excision of Left Femoral Shaft, Open Approach, Diagnostic (ICD-10-PCS; 2022-01-18)
DX: S72.142A Displaced intertrochanteric fracture of left femur, initial encounter for closed fracture (principal); D62 Acute posthemorrhagic anemia; Z20.822 Contact with and (suspected) exposure to COVID-19; Z23 Encounter for immunization; W18.30XA Fall on same level, unspecified, initial encounter; S01.511A Laceration without foreign body of lip, initial encounter; R00.1 Bradycardia, unspecified; E03.9 Hypothyroidism, unspecified; M19.90 Unspecified osteoarthritis, unspecified site; J45.909 Unspecified asthma, uncomplicated; E78.5 Hyperlipidemia, unspecified; I10 Essential (primary) hypertension; I25.10 Atherosclerotic heart disease of native coronary artery without angina pectoris; Z95.1 Presence of aortocoronary bypass graft; Z98.42 Cataract extraction status, left eye; Z98.41 Cataract extraction status, right eye; Z79.1 Long term (current) use of non-steroidal anti-inflammatories (NSAID); Z79.899 Other long term (current) drug therapy; Z79.82 Long term (current) use of aspirin; Z79.890 Hormone replacement therapy
CPT/HCPCS: 36415; 40650; 70450; 70486; 71045; 72125; 72170; 76000; 80048; 80053; 81001; 83735; 84100; 84443; 84484; 85025; 87086; 88184; 88185; 88304; 88307; 88342; 90471; 90715; 93005; 96374; 96375; 96376; C1713; G0390; J0690; J1885; J2270; J2405; J2704; J3490; J7050; U0002; U0003; U0005

== ENCOUNTER 2022-02-02 10:55 | Inpatient (IN) | payer MEDICARE, BC ==
[2022-02-02 12:13] LABS: #Lymphocytes 0.6 thou/uL (1.20-3.40); #Monocytes 0.5 thou/uL (0.11-0.59); #Neutrophils 2.4 thou/uL (1.40-6.50); %Basophils 1.3 % (0.0-1.0); %Eosinophils 1.4 % (0.0-10.0); %Lymphocytes 15.8 % (21.0-51.0); %Monocytes 13.5 % (0.0-10.0); Hemoglobin 9.6 g/dL (12.0-16.0); Mean Corpuscular HGB CONC 32.5 g/dL (32.0-36.0); Mean Corpuscular Hemoglobin 34.3 pg (27.0-31.0); Mean Platelet Volume 6.3 fL (7.4-10.4); Platelet Count 264 thou/uL (130-400); RBC Distribution Width 14.2 % (11.5-14.5); White Blood Cell (WBC) Count 3.5 thou/uL (4.8-10.8)
[2022-02-02 12:22] LABS: INR-International Normal Ratio 1.1; PTT 33.6 sec (22.9-36.1); Prothrombin Time 14.1 sec (12.0-14.7)
[2022-02-02 12:33] LABS: ALT (SGPT) 14 U/L (8-55); AST (SGOT) 19 U/L (5-34); Albumin 3.3 g/dL (3.4-4.8); Alkaline Phosphatase 68 U/L (40-110); Anion Gap 13 mmol/L (10-20); BUN (Urea Nitrogen) 8 mg/dL (9.8-20.1); Bilirubin, Total 1.2 mg/dL (0.2-1.2); Calc. Creatinine Clearance 0 mL/min (70-130); Calcium 8.5 mg/dL (7.8-10.44); Carbon Dioxide 27 mmol/L (23-31); Chloride 95 mmol/L (98-107); Globulin 2.7 g/dL (2.4-3.5); Glucose 100 mg/dL (83-110); Potassium 3.8 mmol/L (3.5-5.1); Sodium 131 mmol/L (136-145)
[2022-02-02] MEDS ORDERED: hydrALAZINE 20 MG/ML VIAL SLOW IVP PRN (14:05)
[2022-02-02] MEDS ORDERED: Dextrose 50% Abboject 50 ML SYRINGE SLOW IVP PRN (14:05)
[2022-02-02] MEDS ORDERED: Dextrose 5% in Water 1,000 ML IV PRN (14:05)
[2022-02-02] MEDS ORDERED: Ondansetron PF 4 MG/2 ML Vial IVP PRN (14:05)
[2022-02-02] MEDS ORDERED: Ondansetron ODT 4 MG TAB PO PRN (14:05)
[2022-02-02] MEDS ORDERED: Morphine 2 MG/ML VIAL SLOW IVP PRN (14:05)
[2022-02-02] MEDS ORDERED: Cyclobenzaprine 10 MG TAB PO PRN (14:10)
[2022-02-02] MEDS ORDERED: Ibuprofen 200 MG TAB PO PRN (14:10)
[2022-02-02] MEDS ORDERED: traMADol HCl 50 MG TAB PO PRN (14:10)
[2022-02-02] MEDS ORDERED: Sodium Chloride 0.9% 1,000 ML IV SCH (14:15)
[2022-02-02] MEDS: Acetaminophen 500 MG TAB PO SCH ×2 (15:00→20:31)
[2022-02-02] MEDS: traMADol HCl 50 MG TAB PO SCH ×2 (15:01→20:32)
[2022-02-02 16:17] LABS: Phosphorus 3.2 mg/dL (2.3-4.7)
[2022-02-02 16:19] LABS: Magnesium 1.8 mg/dL (1.6-2.6)
[2022-02-02 17:18] VITALS: BMI 34.2
[2022-02-02 20:26] LABS: SARS-CoV-2 NAA Rapid Test Not Detected (NotDetected)
[2022-02-02 20:27] LABS: Bacteria/HPF 1+ HPF (None Seen); Bilirubin Negative (Negative); Blood, Urine Negative (Negative); Clarity Clear (Clear); Glucose, Urine (Dipstick) Normal (Negative); Ketone, Urine Negative (Negative); Leukocyte Negative Leu/uL (Negative); Nitrite Negative (Negative); Protein, Urine (Dipstick) Negative (Neg-Trace); RBC/HPF 0-3 HPF (0-3); Specific Gravity, Urine 1.011 (1.002-1.036); Squamous Epithelial 0-3 HPF (0-3); WBC/HPF 0-3 HPF (0-3); pH, Urine 7.5 (5.0-9.0)
[2022-02-02] MEDS: Senokot S 8.6-50 MG TAB PO SCH (20:32)
[2022-02-02] MEDS: Docusate 100 MG CAP PO SCH (20:32)
[2022-02-02] MEDS: Famotidine 20 MG TAB PO SCH (20:32)
[2022-02-03] MEDS: Acetaminophen 500 MG TAB PO SCH ×4 (03:40→22:34)
[2022-02-03] MEDS: traMADol HCl 50 MG TAB PO SCH ×4 (03:40→21:39)
[2022-02-03 06:13] LABS: Hemoglobin 9.1 g/dL (12.0-16.0); Mean Corpuscular HGB CONC 33.3 g/dL (32.0-36.0); Mean Corpuscular Hemoglobin 34.8 pg (27.0-31.0); Mean Platelet Volume 6.3 fL (7.4-10.4); Platelet Count 258 thou/uL (130-400); RBC Distribution Width 14.2 % (11.5-14.5); Red Blood Cell (RBC) Count 2.63 mill/uL (4.20-5.40); White Blood Cell (WBC) Count 2.6 thou/uL (4.8-10.8)
[2022-02-03 06:26] LABS: Anion Gap 9 mmol/L (10-20); BUN (Urea Nitrogen) 8 mg/dL (9.8-20.1); Calc. Creatinine Clearance 83 mL/min (70-130); Calcium 8.3 mg/dL (7.8-10.44); Carbon Dioxide 28 mmol/L (23-31); Chloride 99 mmol/L (98-107); Glucose 90 mg/dL (83-110); Magnesium 1.8 mg/dL (1.6-2.6); Phosphorus 3.3 mg/dL (2.3-4.7); Potassium 4.3 mmol/L (3.5-5.1); Sodium 132 mmol/L (136-145)
[2022-02-03 06:34] LABS: Band 2 % (5-11); Elliptocytes SLIGHT = 2-5 cells (100X) (0-1/hpf); Eosinophils 2 % (0-10); Lymphocytes 31 % (21-51); MDiff Complete? YES; Monocytes 18 % (0-10); Myelocyte 1 % (0-0); Neutrophil 42 % (42-75); Reactive Lymphocytes 4 % (0-10)
[2022-02-03] MEDS ORDERED: Magnesium Sulfate 3 GM in Sodium Chloride 0.9% 100 ML IVPB SCH (08:00)
[2022-02-03] MEDS: Senokot S 8.6-50 MG TAB PO SCH ×2 (08:58→21:38)
[2022-02-03] MEDS: Docusate 100 MG CAP PO SCH ×2 (08:58→21:38)
[2022-02-03] MEDS: Famotidine 20 MG TAB PO SCH ×2 (08:58→21:38)
[2022-02-03] MEDS: Loratadine 10 MG TAB PO SCH (08:59)
[2022-02-03] MEDS: Polyethylene Glycol 3350 17 GM Packet PO SCH (08:59)
[2022-02-03] MEDS: Oxybutynin 5 MG TAB PO SCH (08:59)
[2022-02-03] MEDS: Montelukast Sodium 10 mg Tablet PO SCH (08:59)
[2022-02-03] MEDS ORDERED: CEFAZOLIN 2 GM in Sodium Chloride 0.9% 100 ML IVPB SCH (17:00)
[2022-02-03] MEDS: Sodium Chloride 0.9% 1,000 ML IV SCH (18:06)
[2022-02-03] MEDS: Atorvastatin Calcium 40 MG TAB PO SCH (21:38)
[2022-02-04] MEDS: Sodium Chloride 0.9% 1,000 ML IV SCH ×3 (00:12→18:24)
[2022-02-04] MEDS: traMADol HCl 50 MG TAB PO SCH ×4 (03:45→21:57)
[2022-02-04] MEDS: Acetaminophen 500 MG TAB PO SCH ×4 (03:49→21:55)
[2022-02-04] MEDS: Montelukast Sodium 10 mg Tablet PO SCH (09:08)
[2022-02-04] MEDS: Loratadine 10 MG TAB PO SCH (09:08)
[2022-02-04] MEDS: Senokot S 8.6-50 MG TAB PO SCH ×2 (09:08→21:57)
[2022-02-04] MEDS: Oxybutynin 5 MG TAB PO SCH (09:09)
[2022-02-04] MEDS: Famotidine 20 MG TAB PO SCH ×2 (09:10→21:55)
[2022-02-04] MEDS: Furosemide 20 MG TAB PO SCH (09:10)
[2022-02-04] MEDS: Docusate 100 MG CAP PO SCH ×2 (09:10→21:55)
[2022-02-04] MEDS: Polyethylene Glycol 3350 17 GM Packet PO SCH (09:10)
[2022-02-04] MEDS ORDERED: EPINEPHrine 1 MG/ML AMP ONE (13:23)
[2022-02-04] MEDS ORDERED: Lidocaine 1% w/Epinephrine 1:100K 20 ML VIAL ONE (13:23)
[2022-02-04] MEDS ORDERED: Neomycin-Polymyxin 1 ML AMP ONE (13:23)
[2022-02-04] MEDS ORDERED: Bupivacaine 0.25% 10 ML VIAL ONE (13:23)
[2022-02-04] MEDS ORDERED: fentaNYL Citrate/PF 100 MCG/2 ML SYRINGE ONE ×2 (13:38→13:39)
[2022-02-04] MEDS ORDERED: PHENYLEPHRINE-NS 100 MCG/ML 10 ML SYRINGE ONE ×2 (13:38→14:49)
[2022-02-04] MEDS ORDERED: Phenylephrine 10 MG/ML VIAL ONE (13:39)
[2022-02-04] MEDS ORDERED: CEFAZOLIN 2 GM VIAL ONE (14:38)
[2022-02-04] MEDS ORDERED: Sodium Chloride 0.9% 100 ML ONE ×2 (14:39→14:41)
[2022-02-04] MEDS ORDERED: Tranexamic Acid 1,000 MG/10 ML VIAL ONE ×2 (14:40→17:37)
[2022-02-04] MEDS ORDERED: Rocuronium Bromide 10 MG/ML (10ML VIAL) ONE (14:49)
[2022-02-04] MEDS ORDERED: Esmolol 100 MG/10 ML VIAL ONE (14:49)
[2022-02-04] MEDS ORDERED: Glycopyrrolate 0.2 MG/ML 5 ML SYRINGE ONE (14:49)
[2022-02-04] MEDS ORDERED: Dexamethasone 20 MG/5 ML VIAL ONE (14:49)
[2022-02-04] MEDS ORDERED: Lidocaine 1% PF 5 ML VIAL ONE (14:49)
[2022-02-04] MEDS ORDERED: PROPOFOL 200 MG/20 ML VIAL ONE (14:49)
[2022-02-04] MEDS ORDERED: Ondansetron PF 4 MG/2 ML Vial ONE (14:49)
[2022-02-04] MEDS ORDERED: ePHEDrine 50 MG/ML VIAL ONE (14:49)
[2022-02-04] MEDS ORDERED: HYDROcodone/Acetaminophen 10/325 mg Tablet PO PRN ×2 (17:28)
[2022-02-04] MEDS ORDERED: Tranexamic Acid 1,000 MG in Sodium Chloride 0.9% 100 ML IVPB SCH (17:30)
[2022-02-04] MEDS ORDERED: Ondansetron HCl/PF 4 MG/2 ML Vial IVP PRN (17:33)
[2022-02-04] MEDS: Cyclobenzaprine 10 MG TAB PO SCH (21:56)
[2022-02-04] MEDS: Atorvastatin Calcium 40 MG TAB PO SCH (21:57)
[2022-02-04] MEDS: CEFAZOLIN 2 GM in Sodium Chloride 0.9% 100 ML IVPB SCH (22:05)
[2022-02-05] MEDS: Sodium Chloride 0.9% 1,000 ML IV SCH
[2022-02-05] MEDS: Acetaminophen 500 MG TAB PO SCH ×4 (04:04→20:13)
[2022-02-05] MEDS: traMADol HCl 50 MG TAB PO SCH ×4 (04:04→20:11)
[2022-02-05] MEDS: CEFAZOLIN 2 GM in Sodium Chloride 0.9% 100 ML IVPB SCH (06:03)
[2022-02-05 06:17] LABS: #Monocytes 0.5 thou/uL (0.11-0.59); #Neutrophils 3.8 thou/uL (1.40-6.50); %Basophils 0.3 % (0.0-1.0); %Eosinophils 0.3 % (0.0-10.0); %Lymphocytes 19.1 % (21.0-51.0); %Monocytes 9.4 % (0.0-10.0); Hemoglobin 9.4 g/dL (12.0-16.0); Hemoglobin 9.5 g/dL (12.0-16.0); Mean Corpuscular HGB CONC 32.6 g/dL (32.0-36.0); Mean Corpuscular HGB CONC 32.7 g/dL (32.0-36.0); Mean Corpuscular Hemoglobin 33.8 pg (27.0-31.0); Mean Corpuscular Hemoglobin 33.9 pg (27.0-31.0); Mean Platelet Volume 6.3 fL (7.4-10.4); Mean Platelet Volume 6.5 fL (7.4-10.4); Platelet Count 293 thou/uL (130-400); Platelet Count 294 thou/uL (130-400); RBC Distribution Width 14.3 % (11.5-14.5); Red Blood Cell (RBC) Count 2.78 mill/uL (4.20-5.40); White Blood Cell (WBC) Count 5.3 thou/uL (4.8-10.8); White Blood Cell (WBC) Count 5.4 thou/uL (4.8-10.8)
[2022-02-05 06:42] LABS: Anion Gap 10 mmol/L (10-20); BUN (Urea Nitrogen) 10 mg/dL (9.8-20.1); Calc. Creatinine Clearance 90 mL/min (70-130); Calcium 7.6 mg/dL (7.8-10.44); Carbon Dioxide 25 mmol/L (23-31); Chloride 103 mmol/L (98-107); Glucose 110 mg/dL (83-110); Magnesium 1.8 mg/dL (1.6-2.6); Phosphorus 3.1 mg/dL (2.3-4.7); Potassium 4.3 mmol/L (3.5-5.1); Sodium 134 mmol/L (136-145)
[2022-02-05] MEDS ORDERED: Magnesium 2 GM/50 ML(in water) 3 GM in Premix Bag 1 BAG IVPB SCH (07:15)
[2022-02-05] MEDS ORDERED: Magnesium Sulfate 3 GM in Sodium Chloride 0.9% 100 ML IVPB SCH (09:00)
[2022-02-05] MEDS: Docusate 100 MG CAP PO SCH ×2 (09:31→20:13)
[2022-02-05] MEDS: Aspirin 81 mg Enteric Coated Tablet PO SCH ×2 (09:31→20:14)
[2022-02-05] MEDS: Furosemide 20 MG TAB PO SCH ×4 (09:32→12:40)
[2022-02-05] MEDS: Senokot S 8.6-50 MG TAB PO SCH ×2 (09:32→20:14)
[2022-02-05] MEDS: Famotidine 20 MG TAB PO SCH ×2 (09:33→20:11)
[2022-02-05] MEDS: Loratadine 10 MG TAB PO SCH (09:33)
[2022-02-05] MEDS: Montelukast Sodium 10 mg Tablet PO SCH (09:33)
[2022-02-05] MEDS: Oxybutynin 5 MG TAB PO SCH (09:33)
[2022-02-05] MEDS ORDERED: Ketorolac Tromethamine 30 MG/ML VIAL IVP SCH (09:45)
[2022-02-05] MEDS: Polyethylene Glycol 3350 17 GM Packet PO SCH (10:43)
[2022-02-05] MEDS: Ketorolac Tromethamine 30 MG/ML VIAL IVP SCH (18:20)
[2022-02-05] MEDS: Atorvastatin Calcium 40 MG TAB PO SCH (20:14)
[2022-02-05] MEDS: Cyclobenzaprine 10 MG TAB PO SCH (20:14)
[2022-02-05] MEDS ORDERED: Sodium Chloride 0.9% 500 ML IV SCH (20:15)
[2022-02-06] MEDS: Ketorolac Tromethamine 30 MG/ML VIAL IVP SCH ×2 (02:51→09:30)
[2022-02-06] MEDS: Acetaminophen 500 MG TAB PO SCH ×4 (02:52→19:49)
[2022-02-06] MEDS: traMADol HCl 50 MG TAB PO SCH ×2 (02:52→09:30)
[2022-02-06] MEDS ORDERED: Sodium Chloride 0.9% 500 ML IV SCH (06:45)
[2022-02-06 06:48] LABS: Hemoglobin 8.7 g/dL (12.0-16.0); Mean Corpuscular Hemoglobin 34.1 pg (27.0-31.0); Mean Platelet Volume 6.5 fL (7.4-10.4); Platelet Count 238 thou/uL (130-400); RBC Distribution Width 13.9 % (11.5-14.5); Red Blood Cell (RBC) Count 2.56 mill/uL (4.20-5.40); White Blood Cell (WBC) Count 4.8 thou/uL (4.8-10.8)
[2022-02-06] MEDS: Montelukast Sodium 10 mg Tablet PO SCH (09:30)
[2022-02-06] MEDS: Docusate 100 MG CAP PO SCH ×2 (09:30→19:48)
[2022-02-06] MEDS: Loratadine 10 MG TAB PO SCH (09:30)
[2022-02-06] MEDS: Aspirin 81 mg Enteric Coated Tablet PO SCH ×2 (09:30→19:48)
[2022-02-06] MEDS: Oxybutynin 5 MG TAB PO SCH (09:30)
[2022-02-06] MEDS: Polyethylene Glycol 3350 17 GM Packet PO SCH (09:30)
[2022-02-06] MEDS: Famotidine 20 MG TAB PO SCH ×2 (09:30→19:49)
[2022-02-06] MEDS: Senokot S 8.6-50 MG TAB PO SCH ×2 (11:13→19:48)
[2022-02-06] MEDS: Dextrose 10% in Water 250 ML IV SCH ×2 (14:30→19:50)
[2022-02-06] MEDS ORDERED: Losartan 25 MG TAB PO SCH (18:30)
[2022-02-06] MEDS: Atorvastatin Calcium 40 MG TAB PO SCH (19:48)
[2022-02-06] MEDS ORDERED: Melatonin 3 MG TAB PO PRN (21:00)
[2022-02-07] MEDS: Acetaminophen 500 MG TAB PO SCH ×2 (02:27→08:25)
[2022-02-07] MEDS: Dextrose 10% in Water 250 ML IV SCH ×3 (02:35→13:05)
[2022-02-07] MEDS: Docusate 100 MG CAP PO SCH (08:26)
[2022-02-07] MEDS: Aspirin 81 mg Enteric Coated Tablet PO SCH (08:26)
[2022-02-07] MEDS: Furosemide 20 MG TAB PO SCH (08:27)
[2022-02-07] MEDS: Famotidine 20 MG TAB PO SCH (08:27)
[2022-02-07] MEDS: Montelukast Sodium 10 mg Tablet PO SCH (08:28)
[2022-02-07] MEDS: Loratadine 10 MG TAB PO SCH (08:28)
[2022-02-07] MEDS: Oxybutynin 5 MG TAB PO SCH (08:29)
[2022-02-07] MEDS: Polyethylene Glycol 3350 17 GM Packet PO SCH (08:40)
[2022-02-07] MEDS: Senokot S 8.6-50 MG TAB PO SCH (08:40)
[2022-02-07 12:51] VITALS: TEMP 98.2
[2022-02-07] MEDS ORDERED: Ibuprofen 200 MG TAB PO PRN (14:28)
[2022-02-07 17:03] VITALS: BP 104/68
== END 2022-02-07 15:15 | DRG 470 ==
LOC: ERS 10:55 → SURG A 11:46
PROVIDERS: ADMIT Surgery; ATTEND Surgery
PROC: 0SRS0JZ Replacement of Left Hip Joint, Femoral Surface with Synthetic Substitute, Open Approach (ICD-10-PCS; principal; 2022-02-04)
PROC: 0QP704Z Removal of Internal Fixation Device from Left Upper Femur, Open Approach (ICD-10-PCS; 2022-02-04)
PROC: 30233N1 Transfusion of Nonautologous Red Blood Cells into Peripheral Vein, Percutaneous Approach (ICD-10-PCS; 2022-02-04)
DX: T84.125A Displacement of internal fixation device of left femur, initial encounter (principal); Z20.822 Contact with and (suspected) exposure to COVID-19; M19.90 Unspecified osteoarthritis, unspecified site; I10 Essential (primary) hypertension; E03.9 Hypothyroidism, unspecified; I25.10 Atherosclerotic heart disease of native coronary artery without angina pectoris; J45.909 Unspecified asthma, uncomplicated; E78.5 Hyperlipidemia, unspecified; Y83.1 Surgical operation with implant of artificial internal device as the cause of abnormal reaction of the patient, or of later complication, without mention of misadventure at the time of the procedure; Z95.1 Presence of aortocoronary bypass graft; Z98.49 Cataract extraction status, unspecified eye; Z98.890 Other specified postprocedural states; Z79.899 Other long term (current) drug therapy; Z79.82 Long term (current) use of aspirin
CPT/HCPCS: 36415; 36416; 36430; 76000; 80048; 81001; 83735; 84100; 85025; 85027; 85610; 85730; 86850; 86900; 86901; 87070; 87086; 87205; 99284; C1713; C1776; J0171; J1885; J2270; J2370; J3475; J3490; J7030; J7050; P9016; S0020; U0002

== ENCOUNTER 2023-05-13 11:11 | Outpatient (CLI) | payer MEDICARE, BC | END 2023-05-13 11:12 | disposition home or self-care (01) | LOC: RAD 11:11 | PROVIDERS: ATTEND Physician Assistant | DX: R06.02 Shortness of breath (principal) | CPT/HCPCS: 71046 ==